=== PATIENT | female | born 1960 | race Hispanic/Latino ===

== ENCOUNTER 2016-12-03 17:59 | Observation (INO) | payer MEDICAID ==
[2016-12-03] MEDS ORDERED: Sodium Chloride 0.9% 1,000 ML IV STA ×2 (18:37→20:34)
[2016-12-03 19:02] LABS: BASO # 0.1 K/uL (0.0-0.2); BASO % 0.6 % (0.0-2.0); EOS # 0.1 K/uL (0.0-0.7); EOS % 0.6 % (0.0-4.0); HEMATOCRIT 44.6 % (34.0-47.0); LYMPH # 1.8 K/uL (1.0-4.3); LYMPH % 16.6 % (20.0-40.0); MEAN CELL VOLUME 101.7 fl (81.0-99.0); MEAN CORPUSCULAR HEMOGLOBIN 35.3 pg (27.0-31.0); MEAN CORPUSCULAR HGB CONC 34.7 g/dL (33.0-37.0); MEAN PLATELET VOLUME 8.6 fl (7.2-11.7); MONO # 1.1 K/uL (0.0-0.8); MONO % 9.9 % (0.0-10.0); NEUT # 7.8 K/uL (1.8-7.0); NEUT % 72.3 % (50.0-75.0); RED CELL DISTRIBUTION WIDTH 13.9 % (11.5-14.5); WHITE BLOOD COUNT 10.8 K/uL (4.8-10.8)
--- NOTE | 2016-12-03 19:06 | ED PDOC ---
HPI: Abdomen Time Seen by Provider: 12/03/16 18:37 Chief Complaint (Nursing): Abdominal Pain Chief Complaint (Provider): abdominal pain History Per: Patient History/Exam Limitations: no limitations Outside of [place] travel?: No Location Of Pain/Discomfort: RLQ, LLQ Associated Symptoms: Nausea, Vomiting (>10x daily), Diarrhea (with mucus), Loss Of Appetite, Other (weakness). denies: Fever, Chills, Back Pain, Chest Pain, Constipation, Urinary Symptoms Exacerbating Factors: Movement Alleviating Factors: Rest Last Bowel Movement: Today Additional Complaint(s): 56yo F in ED for eval of left lower and right lower quad area pin x 5dPT with hx IBD and is on narocitc Rx for pain relief. PT admits to nausea with vomiting >10x with diarrhea. denies CP, SOB, dysuria hematuira bloody stool. Abnormal Vaginal Bleeding: No Past Medical History Reviewed: Historical Data, Nursing Documentation, Vital Signs Vital Signs: Last Vital Signs Temp 99.2 F 12/03/16 18:01 Pulse 100 H 12/03/16 19:12 Resp 20 12/03/16 19:12 BP 128/98 H 12/03/16 18:01 Pulse Ox 99 12/03/16 19:09 - Medical History PMH: Anxiety, Asthma, COPD, HTN, Chronic Pain (back pain) Denies: Chronic Kidney Disease - Family History Family History: States: Unknown Family Hx, CAD - Immunization History Hx Tetanus Toxoid Vaccination: No Hx Influenza Vaccination: No Hx Pneumococcal Vaccination: No - Home Medications Home Medications: Ambulatory Orders Medication Instructions Recorded Alprazolam [Xanax] 1 mg PO Q12H 07/09/14 Hydrocodone/Acetaminophen [Vicodin 1 tab PO TID 07/09/14 Hp 10-300 mg Tablet] Irbesartan [Avapro] 300 mg PO HS 07/09/14 Oxycodone HCl [Oxycontin] 20 mg PO Q12H 11/29/15 Pantoprazole Sodium [Protonix] 40 mg PO DAILY 11/29/15 Theophylline [Gideon-Dur] 200 mg PO BID 11/29/15 Zolpidem [Ambien] 10 mg PO HS 11/29/15 Ondansetron ODT [Zofran ODT] 4 mg PO Q6 PRN 02/13/16 - Allergies Allergies/Adverse Reactions: Allergies Allergy/AdvReac Type Severity Reaction Status Date / Time EGG Allergy RASH Verified 12/03/16 18:00 Review of Systems ROS Statement: Except As Marked, All Systems Reviewed And Found Negative Constitutional: Positive for: Weakness. Negative for: Fever, Chills Cardiovascular: Negative for: Chest Pain, Palpitations Respiratory: Negative for: Cough, Shortness of Breath Gastrointestinal: Positive for: Nausea, Vomiting, Abdominal Pain, Diarrhea. Negative for: Constipation, Melena, Hematochezia, Hematemesis, Rectal Pain Physical Exam - Reviewed Nursing Documentation Reviewed: Yes Vital Signs Reviewed: Yes - Physical Exam Appears: Positive for: Non-toxic, No Acute Distress, Uncomfortable Head Exam: Positive for: ATRAUMATIC, NORMAL INSPECTION, NORMOCEPHALIC Skin: Positive for: Warm, Dry Eye Exam: Positive for: EOMI, Normal appearance, PERRL Cardiovascular/Chest: Positive for: Regular Rate, Rhythm Respiratory: Positive for: CNT, Normal Breath Sounds Gastrointestinal/Abdominal: Positive for: Bowel Sounds, Soft, Tenderness ( diffuse lower abd. ). Negative for: Mass, Distended, Guarding Back: Positive for: Normal Inspection. Negative for: L CVA Tenderness, R CVA Tenderness Extremity: Positive for: Normal ROM Neurologic/Psych: Positive for: Alert, Oriented - Laboratory Results Result Diagrams: 12/03/16 18:45 12/03/16 18:45 - ECG O2 Sat by Pulse Oximetry: 99 - Progress ED Course And Treament: impression: IBD-will get CT scan, fluids, zofran and Bentyl for pain Pt with abdominal labs -K+ 2.6. Pt will EKG. case transferred to NAM Moser-Pt pending CT scan and if with abnormal EKG IV K + vs PO K+. Disposition - Clinical Impression Clinical Impression: Abdominal pain - Patient ED Disposition Is Patient to be Admitted: Transfer of Care - Disposition Disposition Time: 20:10 Condition: FAIR Patient Signed Over To: Ricarda Moser Handoff Comments: CT pending
[2016-12-03 19:45] LABS: ALB/GLOB RATIO 1.3 (1.0-2.1); ALKALINE PHOSPHATASE 128 U/L (38-126); ALT/SGPT 68 U/L (9-52); AST/SGOT 99 U/L (14-36); BILIRUBIN,TOTAL 0.7 mg/dl (0.2-1.3); BLOOD UREA NITROGEN 7 mg/dl (7-17); CALCIUM 9.7 mg/dL (8.4-10.2); CARBON DIOXIDE 38 mmol/L (22-30); CHLORIDE 76 mmol/L (98-107); GFR AFRICAN-AMERICAN > 60; GLUCOSE,RANDOM 103 mg/dL (65-105); SODIUM 128 mmol/l (132-148); TOTAL PROTEIN 7.5 G/DL (6.3-8.2)
[2016-12-03 19:54] LABS: POTASSIUM 2.6 MMOL/L (3.6-5.0)
[2016-12-03] MEDS ORDERED: Potassium Chloride 20 mEq ER Tab PO STA (19:57)
[2016-12-03] MEDS ORDERED: Iohexol 300 100 ML IJ ONE (19:58)
[2016-12-03] MEDS ORDERED: Sodium Chloride 0.9% 50 ML IV ONE (19:58)
[2016-12-03 20:12] LABS: RBC URINE < 1 /hpf (0-3); URINE BILIRUBIN NEGATIVE (NEGATIVE); URINE BLOOD NEGATIVE (NEGATIVE); URINE COLOR STRAW (YELLOW); URINE GLUCOSE (UA) NEG (Normal); URINE KETONE NEGATIVE (NEGATIVE); URINE LEUKOCYTE ESTERASE NEG Leu/uL (Negative); URINE PROTEIN NEGATIVE (NEGATIVE); URINE UROBILINOGEN 0.2-1.0 mg/dL (0.2-1.0); WBC URINE < 1 /hpf (0-5)
[2016-12-03] MEDS ORDERED: Potassium Chloride 20 mEq ER Tab PO ONE ×2 (20:33→20:59)
--- NOTE | 2016-12-03 20:35 | ED PDOC ---
- Laboratory Results Result Diagrams: 12/03/16 18:45 12/03/16 23:20 - ECG O2 Sat by Pulse Oximetry: 99 - Radiology X-Ray: Viewed By Me (reviewed by ED attending) X-Ray Interpretation: No Acute Disease - Progress ED Course And Treament: Case endorsed to policy writer typist from Freda BROWNING pending CT Case discussed with ED attending Dr. Carver; will give Potassium 80mEq PO Morphine IV given for returning pain EXAM: CT Abdomen and Pelvis With Intravenous Contrast CLINICAL HISTORY: 56 years old, female; Pain; Abdominal pain TECHNIQUE: Axial computed tomography images of the abdomen and pelvis with intravenous contrast. Coronal and sagittal reformatted images were created and reviewed. CONTRAST: 90 mL of omnipaque 300 administered intravenously. EXAM DATE/TIME: 12/03/2016 7:09 PM COMPARISON: CT - CHEST,ABD,PEL W/IV PO CONTRAST 05/07/2015 12:12:45 PM FINDINGS: Lower thorax: Heart size is normal. Lung bases are hyperinflated. There is scarring in the lingula. ABDOMEN: Liver: There is fatty infiltration of the liver. Gallbladder and bile ducts: Gallbladder is partially distended. Common bile duct is dilated. Pancreas: Pancreas is mildly atrophic. There is mild prominence of the pancreatic duct. Spleen: Spleen is unremarkable. There is an accessory spleen in the left upper quadrant. Adrenals: unremarkable Kidneys and ureters: There is a small left lower pole renal cyst. There are additional low attenuation left renal lesions too small to characterize Kidneys are otherwise unremarkable. There are extrarenal pelves bilaterally. There is no ureterectasis. Stomach and bowel: Stomach is incompletely distended which accentuates the gastric wall. There is mild duodenal wall and fold prominence. Rotation is normal. Proximal small bowel is mildly dilated with air-fluid levels. There is air and fluid throughout the small bowel. Terminal ileum is unremarkable. Visualized portion the appendix is unremarkable.Colon is incompletely distended which limits evaluation. There is scattered diverticulosis Appendix: See stomach and bowel PELVIS: Bladder: Bladder is distended. Reproductive: Uterus is absent. There are no adnexal masses. ABDOMEN and PELVIS: Intraperitoneal space: There is no free air.There is no free fluid. Bones/joints: There are degenerative changes in the osseus structures. There is a spinal foreign body extending from T12-L4. Soft tissues: unremarkable Vasculature: There are vascular calcifications. Lymph nodes: There is shotty para-aortic adenopathy. IMPRESSION: IMPRESSION: Fatty liver, no acute solid visceral abnormality; mildly distended gallbladder with dilated common duct; gastric wall thickening, underdistention versus true thickening; possible enteritis, no obstruction; no CT findings of appendicitis or diverticulitis On re-eval, patient still with complaints of lower abdominal pain; patient has already been taking vicodin/oxydone at home for chronic pain without improvement of abdominal pain. Repeat potassium 3.0. Potassium IV run ordered. Case discussed with Dr. Badillo for placement in observation for hypokalemia, hyponatremia, intractable abdominal pain, dehydration Disposition - Clinical Impression Clinical Impression: Abdominal pain, Hypokalemia, Hyponatremia, Dehydration, Gastroenteritis - POA Present On Arrival: None - Disposition Disposition: Hospitalized as Observation Patient Disposition Time: 00:00 Condition: FAIR
--- NOTE | 2016-12-03 21:13 | CT ---
EXAM: CT Abdomen and Pelvis With Intravenous Contrast CLINICAL HISTORY: 56 years old, female; Pain; Abdominal pain TECHNIQUE: Axial computed tomography images of the abdomen and pelvis with intravenous contrast. Coronal and sagittal reformatted images were created and reviewed. CONTRAST: 90 mL of omnipaque 300 administered intravenously. EXAM DATE/TIME: 12/03/2016 7:09 PM COMPARISON: CT - CHEST,ABD,PEL W/IV PO CONTRAST 05/07/2015 12:12:45 PM FINDINGS: Lower thorax: Heart size is normal. Lung bases are hyperinflated. There is scarring in the lingula. ABDOMEN: Liver: There is fatty infiltration of the liver. Gallbladder and bile ducts: Gallbladder is partially distended. Common bile duct is dilated. Pancreas: Pancreas is mildly atrophic. There is mild prominence of the pancreatic duct. Spleen: Spleen is unremarkable. There is an accessory spleen in the left upper quadrant. Adrenals: unremarkable Kidneys and ureters: There is a small left lower pole renal cyst. There are additional low attenuation left renal lesions too small to characterize Kidneys are otherwise unremarkable. There are extrarenal pelves bilaterally. There is no ureterectasis. Stomach and bowel: Stomach is incompletely distended which accentuates the gastric wall. There is mild duodenal wall and fold prominence. Rotation is normal. Proximal small bowel is mildly dilated with air-fluid levels. There is air and fluid throughout the small bowel. Terminal ileum is unremarkable. Visualized portion the appendix is unremarkable.Colon is incompletely distended which limits evaluation. There is scattered diverticulosis Appendix: See stomach and bowel PELVIS: Bladder: Bladder is distended. Reproductive: Uterus is absent. There are no adnexal masses. ABDOMEN and PELVIS: Intraperitoneal space: There is no free air.There is no free fluid. Bones/joints: There are degenerative changes in the osseus structures. There is a spinal foreign body extending from T12-L4. Soft tissues: unremarkable Vasculature: There are vascular calcifications. Lymph nodes: There is shotty para-aortic adenopathy. IMPRESSION: IMPRESSION: Fatty liver, no acute solid visceral abnormality; mildly distended gallbladder with dilated common duct; gastric wall thickening, underdistention versus true thickening; possible enteritis, no obstruction; no CT findings of appendicitis or diverticulitis Additional findings as described above.
[2016-12-04] MEDS ORDERED: Potassium CL 10mEq/100ml 100 ML IVPB ONE (00:53)
[2016-12-04] MEDS ORDERED: Potassium Chloride 10 mEq 100 ML IVPB ONE (01:18)
[2016-12-04] MEDS ORDERED: Pneumococcal 23-Valent Vaccine IM ONE (06:00)
[2016-12-04] MEDS: Potassium Chl 40 mEq in D5-NS 1,000 ML IV SCH ×2 (07:30→16:30)
[2016-12-04 07:53] LABS: HEMATOCRIT 38.8 % (34.0-47.0); RED CELL DISTRIBUTION WIDTH 13.7 % (11.5-14.5); WHITE BLOOD COUNT 7.5 K/uL (4.8-10.8)
[2016-12-04 08:03] LABS: ALB/GLOB RATIO 1.2 (1.0-2.1); ALKALINE PHOSPHATASE 100 U/L (38-126); ALT/SGPT 51 U/L (9-52); AST/SGOT 69 U/L (14-36); BILIRUBIN,TOTAL 0.5 mg/dl (0.2-1.3); BLOOD UREA NITROGEN 4 mg/dl (7-17); CALCIUM 8.8 mg/dL (8.4-10.2); CARBON DIOXIDE 33 mmol/L (22-30); CHLORIDE 96 mmol/L (98-107); GFR AFRICAN-AMERICAN > 60; GLUCOSE,RANDOM 97 mg/dL (65-105); POTASSIUM 3.2 MMOL/L (3.6-5.0); SODIUM 137 mmol/l (132-148); TOTAL PROTEIN 5.7 G/DL (6.3-8.2)
[2016-12-04] MEDS: oxyCODONE 20 mg ER Tab (oxyCONTIN) PO SCH (09:58)
[2016-12-04] MEDS: Albuterol HFA 90 mcg/actuation (8 g) INH PRN (13:33)
[2016-12-04] MEDS: Oxycodone/Acetaminophen 5/325 mg Tab PO PRN ×2 (16:29→22:01)
[2016-12-04] MEDS ORDERED: THEOPHYLLINE 200 MG PO SCH (17:00)
--- NOTE | 2016-12-04 19:26 | CON ---
DATE: 12/04/2016 REFERRING PHYSICIAN: Dr. Badillo REASON FOR CONSULTATION: Diarrhea. This is a sherry 56-year-old female known to my office and service, essentially history of IBS type s ymptoms. Brought in for left and right lower quadrant pain and discomfort with 5-day history of diar hillary and vomiting, all since resolving. Diarrhea is improved, but there is persistent hypokalemia, i s tolerating liquid diet. Otherwise, no apparent distress. PAST MEDICAL HISTORY: As above. PAST SURGICAL HISTORY: As above. MEDICATIONS: Have been reviewed. All other systems have been reviewed and negative apart from the HPI. PHYSICAL EXAMINATION: VITAL SIGNS: Here in the hospital, grossly unremarkable. GENERAL: This is a pleasant, middle-aged female, lying in bed, comfortable, no apparent distress. HEAD: Normocephalic, atraumatic. EYES: Pupils equally reactive to light bilaterally. No conjunctival pallor or icterus. NECK: Supple, normal range of motion. No lymphadenopathy appreciated. LUNGS: Coarse breath sounds bilaterally. HEART: S1, S2. Regular rate and rhythm. No murmurs appreciated. ABDOMEN: Soft, nontender, bowel sounds present. No rebound, no guarding. RECTAL: Deferred. EXTREMITIES: Pulses present bilaterally. SKIN: Warm, dry and intact. NEUROLOGIC: AO x 3. LABORATORY AND RADIOLOGY DATA: Have been reviewed. CAT scan shows a proximal small bowel with dilat ed air-fluid levels, but no gross abnormalities. WBCs 7. , hemoglobin 13.2. Potassium is 3.2 an d holding. AST 69, ALT 51, alkaline phosphatase 100. ASSESSMENT AND PLAN: This is a 56-year-old female with severe diarrhea and cramping. Unclear if thi s is gastroenteritis. The patient is doing well. Would advance diet as tolerated. Danielle for the d iarrhea. Follow up with me in the office. Thank you for the consult. Glen Kathleen MD, PhD cc:Liang Badillo MD [id number] TT: 12/04/2016 19:25:14 Confirmation # [id number] Dictation # [id number]
[2016-12-05 00:01] VITALS: PULSE 71; RESP 20
[2016-12-05] MEDS: Potassium Chl 40 mEq in D5-NS 1,000 ML IV SCH ×3 (01:35→08:43)
[2016-12-05] MEDS: Albuterol HFA 90 mcg/actuation (8 g) INH PRN (01:36)
[2016-12-05] MEDS: Oxycodone/Acetaminophen 5/325 mg Tab PO PRN (04:57)
[2016-12-05 05:02] VITALS: BP 104/67; TEMP 97.4; O2SAT 95
[2016-12-05 07:07] LABS: BASO # 0.1 K/uL (0.0-0.2); BASO % 0.7 % (0.0-2.0); EOS # 0.3 K/uL (0.0-0.7); EOS % 4.1 % (0.0-4.0); HEMATOCRIT 39.7 % (34.0-47.0); LYMPH # 2.2 K/uL (1.0-4.3); LYMPH % 27.6 % (20.0-40.0); MEAN CORPUSCULAR HEMOGLOBIN 35.1 pg (27.0-31.0); MEAN CORPUSCULAR HGB CONC 33.4 g/dL (33.0-37.0); MEAN PLATELET VOLUME 8.5 fl (7.2-11.7); MONO # 0.8 K/uL (0.0-0.8); MONO % 9.6 % (0.0-10.0); NEUT # 4.7 K/uL (1.8-7.0); RED CELL DISTRIBUTION WIDTH 13.9 % (11.5-14.5); WHITE BLOOD COUNT 8.1 K/uL (4.8-10.8)
[2016-12-05 07:25] LABS: ALKALINE PHOSPHATASE 92 U/L (38-126); ALT/SGPT 48 U/L (9-52); AST/SGOT 54 U/L (14-36); BILIRUBIN,TOTAL 0.3 mg/dl (0.2-1.3); BLOOD UREA NITROGEN 3 mg/dl (7-17); CALCIUM 9.3 mg/dL (8.4-10.2); CARBON DIOXIDE 31 mmol/L (22-30); CHLORIDE 103 mmol/L (98-107); GFR AFRICAN-AMERICAN > 60; GLUCOSE,RANDOM 102 mg/dL (65-105); POTASSIUM 4.4 MMOL/L (3.6-5.0); SODIUM 140 mmol/l (132-148); TOTAL PROTEIN 5.8 G/DL (6.3-8.2)
[2016-12-05 07:30] LABS: ALB/GLOB RATIO 1.1 (1.0-2.1)
--- NOTE | 2016-12-05 08:28 | CP.PCM.DIS ---
Provider - Provider Date of Admission: 12/04/16 00:23 Attending physician: Liang Badillo MD Time Spent in preparation of Discharge (in minutes): 45 Diagnosis - Discharge Diagnosis (1) Nausea, vomiting and diarrhea Status: Acute Comment: Likely secondary to mild gastroenteritis, has resolved. Follow with PMD and GI as instructed. (2) COPD (chronic obstructive pulmonary disease) Status: Chronic Priority: Medium Comment: Controlled, f/u with primary care doctor (3) IBS (irritable bowel syndrome) Status: Chronic Hospital Course - Lab Results Lab Results: Most Recent Lab Values WBC 8.1 K/uL (4.8-10.8) 12/05/16 06:35 RBC 3.78 Mil/uL (3.80-5.20) L 12/05/16 06:35 Hgb 13.2 g/dL (12.0-16.0) 12/05/16 06:35 Hct 39.7 % (34.0-47.0) 12/05/16 06:35 MCV 105.0 fl (81.0-99.0) H D 12/05/16 06:35 MCH 35.1 pg (27.0-31.0) H 12/05/16 06:35 MCHC 33.4 g/dL (33.0-37.0) 12/05/16 06:35 RDW 13.9 % (11.5-14.5) 12/05/16 06:35 Plt Count 169 K/uL (130-400) 12/05/16 06:35 MPV 8.5 fl (7.2-11.7) 12/05/16 06:35 Neut % (Auto) 58.0 % (50.0-75.0) 12/05/16 06:35 Lymph % (Auto) 27.6 % (20.0-40.0) 12/05/16 06:35 [place] % (Auto) 9.6 % (0.0-10.0) 12/05/16 06:35 Eos % (Auto) 4.1 % (0.0-4.0) H 12/05/16 06:35 Baso % (Auto) 0.7 % (0.0-2.0) 12/05/16 06:35 Neut # 4.7 K/uL (1.8-7.0) 12/05/16 06:35 Lymph # 2.2 K/uL (1.0-4.3) 12/05/16 06:35 [place] # 0.8 K/uL (0.0-0.8) 12/05/16 06:35 Eos # 0.3 K/uL (0.0-0.7) 12/05/16 06:35 Baso # 0.1 K/uL (0.0-0.2) 12/05/16 06:35 Sodium 140 mmol/l (132-148) 12/05/16 06:35 Potassium 4.4 MMOL/L (3.6-5.0) 12/05/16 06:35 Chloride 103 mmol/L (98-107) 12/05/16 06:35 Carbon Dioxide 31 mmol/L (22-30) H 12/05/16 06:35 Anion Gap 10 (10-20) 12/05/16 06:35 BUN 3 mg/dl (7-17) L 12/05/16 06:35 Creatinine 0.5 mg/dL (0.7-1.2) L 12/05/16 06:35 Est GFR ( Amer) > 60 12/05/16 06:35 Est GFR (Non-Af Amer) > 60 12/05/16 06:35 Random Glucose 102 mg/dL (65-105) 12/05/16 06:35 Calcium 9.3 mg/dL (8.4-10.2) 12/05/16 06:35 Total Bilirubin 0.3 mg/dl (0.2-1.3) 12/05/16 06:35 AST 54 U/L (14-36) H D 12/05/16 06:35 ALT 48 U/L (9-52) 12/05/16 06:35 Alkaline Phosphatase 92 U/L (38-126) 12/05/16 06:35 Total Protein 5.8 G/DL (6.3-8.2) L 12/05/16 06:35 Albumin 3.1 g/dL (3.5-5.0) L 12/05/16 06:35 Globulin 2.7 gm/dL (2.2-3.9) 12/05/16 06:35 Albumin/Globulin Ratio 1.1 (1.0-2.1) 12/05/16 06:35 Lipase 66 U/L (23-300) 12/03/16 21:03 Urine Color Straw (YELLOW) 12/03/16 19:58 Urine Clarity Clear (Clear) 12/03/16 19:58 Urine pH 7.0 (5.0-8.0) 12/03/16 19:58 Ur Specific [place] < 1.005 (1.003-1.030) 12/03/16 19:58 Urine Protein Negative mg/dL (NEGATIVE) 12/03/16 19:58 Urine Glucose (UA) Neg mg/dL (Normal) 12/03/16 19:58 Urine Ketones Negative mg/dL (NEGATIVE) 12/03/16 19:58 Urine Blood Negative (NEGATIVE) 12/03/16 19:58 Urine Nitrate Negative (NEGATIVE) 12/03/16 19:58 Urine Bilirubin Negative (NEGATIVE) 12/03/16 19:58 Urine Urobilinogen 0.2-1.0 mg/dL (0.2-1.0) 12/03/16 19:58 Ur Leukocyte Esterase Neg Rach/uL (Negative) 12/03/16 19:58 Urine RBC (Auto) < 1 /hpf (0-3) 12/03/16 19:58 Urine Microscopic WBC < 1 /hpf (0-5) 12/03/16 19:58 Ur Squamous Epith Cells < 1 /hpf (0-5) 12/03/16 19:58 Alcohol, Quantitative < 10 mg/dl (0-10) 12/03/16 20:07 - Hospital Course Hospital Course: Patient seen and examined at bedside this morning with attending. 56F admitted for what clinically appears to be gastroenteritis with PO intolerance, volume depletion, and hypokalemia secondary to N/V/diarrhea. This has since resolved, patient's electrolytes have been repleted and she is tolerating PO. She is stable for discharge to home and instructed to follow up with her PMD, GI specialist. Consultants: Dr Kathleen (GI) assisted in co- management. Discharge Exam - Head Exam Head Exam: ATRAUMATIC, NORMAL INSPECTION, NORMOCEPHALIC - Eye Exam Eye Exam: EOMI, Normal appearance - ENT Exam ENT Exam: Mucous Membranes Moist, Normal Exam - Neck Exam Neck exam: Full Rom, Normal Inspection - Respiratory Exam Respiratory Exam: Clear to PA & Lateral, Rhonchi (scattered pattern c/w smoking history), NORMAL BREATHING PATTERN. absent: Wheezes - Cardiovascular Exam Cardiovascular Exam: REGULAR RHYTHM. absent: JVD - GI/Abdominal Exam GI & Abdominal Exam: Normal Bowel Sounds, Soft. absent: Tenderness - Extremities Exam Extremities exam: normal capillary refill, pedal pulses present - Neurological Exam Neurological exam: Alert, Oriented x3 - Psychiatric Exam Psychiatric exam: Normal Mood - Skin Skin Exam: Normal Color, Warm Discharge Plan - Follow Up Plan Condition: FAIR Disposition: HOME/ ROUTINE Referrals: John Pineda MD [Medical Doctor] - Glen Kathleen MD, PhD [Staff Provider] -
--- NOTE | 2016-12-05 08:29 | CP.PCM.HP ---
<Stella Calabrese - Last Filed: 12/05/16 16:08> History of Present Illness - History of Present Illness History of Present Illness: 56F admitted last night, but seen and examined at bedside this morning with attending. Patient reports she came in because she was "puking her guts up" with multiple episodes of nausea, vomiting, diarrhea. She denies sick contacts, fevers, chills, abdominal pain, or dysuria. GI: Dr Kathleen Pain Mgmnt: Dr Pineda PMD: Dr Huitron PMH: Asthma, HTN, IBS- D type PSH: MARTÍN, C-sxn x3, craniotomy for brain aneurysm ALL: NKDA Smoke- Yes Alcohol- 3-4 cans/week Lives with daughter Present on Admission - Present on Admission Any Indicators Present on Admission: No Review of Systems - Review of Systems Review of Systems: As per HPI Past Patient History - Past Medical History & Family History Past Medical History?: Yes - Past Social History Smoking Status: Heavy Smoker > 10 Cigarettes Daily - CARDIAC Hx Hypertension: Yes - PULMONARY Hx Asthma: Yes Hx Chronic Obstructive Pulmonary Disease (COPD): Yes - NEUROLOGICAL Hx Neurological Disorder: Yes - HEENT Hx HEENT Problems: No - RENAL Hx Chronic Kidney Disease: No - ENDOCRINE/METABOLIC Hx Endocrine Disorders: No - HEMATOLOGICAL/ONCOLOGICAL Hx Blood Disorders: No - INTEGUMENTARY Hx Dermatological Problems: No - MUSCULOSKELETAL/RHEUMATOLOGICAL Hx Musculoskeletal Disorders: Yes - GASTROINTESTINAL Hx Gastrointestinal Disorders: Yes Hx Gastroesophageal Reflux: Yes Hx Irritable Bowel: Yes (WITH DIARRHEA) - GENITOURINARY/GYNECOLOGICAL Hx Genitourinary Disorders: No - PSYCHIATRIC Hx Anxiety: Yes Hx Substance Use: No - SURGICAL HISTORY Hx Surgeries: Yes Hx Hysterectomy: Yes Other/Comment: BRAIN ANEURYSM REPAIRED, 1 OVARY RESECTION - ANESTHESIA Hx Anesthesia: Yes Hx Anesthesia Reactions: No Hx Malignant Hyperthermia: No Meds Allergies/Adverse Reactions: Allergies Allergy/AdvReac Type Severity Reaction Status Date / Time EGG Allergy RASH Verified 12/03/16 18:00 Physical Exam - Constitutional Additional comments: Physical Exam exactly as findings on Discharge Summary. Results - Vital Signs Recent Vital Signs: Last Vital Signs Temp 36.3 C L 12/05/16 05:01 Pulse 71 12/05/16 05:01 Resp 20 12/05/16 05:01 BP 104/67 12/05/16 05:01 Pulse Ox 95 12/05/16 05:01 - Labs Result Diagrams: 12/05/16 06:35 12/05/16 06:35 Labs: Laboratory Results - last 24 hr 12/05/16 06:35 WBC 8.1 RBC 3.78 L Hgb 13.2 Hct 39.7 MCV 105.0 H D MCH 35.1 H MCHC 33.4 RDW 13.9 Plt Count 169 MPV 8.5 Neut % (Auto) 58.0 Lymph % (Auto) 27.6 [place] % (Auto) 9.6 Eos % (Auto) 4.1 H Baso % (Auto) 0.7 Neut # 4.7 Lymph # 2.2 [place] # 0.8 Eos # 0.3 Baso # 0.1 Sodium 140 Potassium 4.4 Chloride 103 Carbon Dioxide 31 H Anion Gap 10 BUN 3 L Creatinine 0.5 L Est GFR ( Amer) > 60 Est GFR (Non-Af Amer) > 60 Random Glucose 102 Calcium 9.3 Total Bilirubin 0.3 AST 54 H D ALT 48 Alkaline Phosphatase 92 Total Protein 5.8 L Albumin 3.1 L Globulin 2.7 Albumin/Globulin Ratio 1.1 Assessment & Plan (1) COPD (chronic obstructive pulmonary disease) Assessment and Plan: Chronic, stable Status: h Priority: Medium (2) Nausea, vomiting and diarrhea Assessment and Plan: Patient volume resuscitated overnight and electrolytes repleted. CT scan in ED read as ?enteritis which is consistent with N/V accompanying and more prominent than diarrhea. She is afebrile, without leukocytosis, and now tolerating PO, and electrolytes wnl. Dr Kathleen has seen patient as well. - GI Consult (Dr Kathleen) appreciated - Advance Diet - Likely discharge to home Status: c (3) IBS (irritable bowel syndrome) Assessment and Plan: Possibly contributing to her symptoms, however history more prominent for the nausea/vomiting. Status: h (4) DVT prophylaxis Assessment and Plan: SCDs, b/l, continuous Status: c <Deny Patterson - Last Filed: 12/18/16 16:45> Results - Vital Signs Recent Vital Signs: Last Vital Signs Temp 97.4 F L 12/05/16 05:01 Pulse 71 12/05/16 09:00 Resp 20 12/05/16 05:01 BP 104/67 12/05/16 05:01 Pulse Ox 95 12/05/16 05:01 - Labs Result Diagrams: 12/05/16 06:35 12/05/16 06:35 Assessment & Plan - Assessment and Plan (Free Text) Assessment: Patient was personally seen and examined by me in rounds with residents. Available labs and diagnostic data reviewed. Case, Patient's condition and management plan discussed with residents in rounds. Agree with resident's documentation. Plan: As ordered. Deny Patterson MD
[2016-12-05] MEDS: oxyCODONE 20 mg ER Tab (oxyCONTIN) PO SCH (08:41)
[2016-12-05] MEDS ORDERED: Pantoprazole 40 mg EC Tab PO SCH (09:00)
--- NOTE | 2016-12-05 18:17 | CARD ---
APPROVED REPORT EKG Measurement Heart [id number] <Conclusion> Normal sinus rhythm Prolonged QT Abnormal ECG
== END 2016-12-05 11:13 | disposition home or self-care (01) ==
LOC: H.ER 17:59 → INTOOBSV 12-04 00:23 → H.ERHOLD 12-04 00:23 → H.TEL 12-04 02:38
PROVIDERS: ADMIT Family Medicine; ATTEND Family Medicine
DX: A04.7 Enterocolitis due to Clostridium difficile (principal); K58.9 Irritable bowel syndrome, unspecified; E87.6 Hypokalemia; E87.1 Hypo-osmolality and hyponatremia; E86.0 Dehydration; G89.29 Other chronic pain; I10 Essential (primary) hypertension; J44.9 Chronic obstructive pulmonary disease, unspecified; J45.909 Unspecified asthma, uncomplicated; F41.9 Anxiety disorder, unspecified; Z91.012 Allergy to eggs

== ENCOUNTER 2017-03-15 22:18 | Emergency (ER) | payer MEDICAID ==
[2017-03-15 22:23] VITALS: TEMP 98
[2017-03-15] MEDS ORDERED: Morphine 4 MG/ML VIAL IVP STA (22:33)
[2017-03-15 22:56] LABS: BASO # 0.1 K/uL (0.0-0.2); BASO % 0.5 % (0.0-2.0); EOS % 0.1 % (0.0-4.0); LYMPH # 2.5 K/uL (1.0-4.3); LYMPH % 20.9 % (20.0-40.0); MEAN CELL VOLUME 102.8 fl (81.0-99.0); MEAN CORPUSCULAR HEMOGLOBIN 34.8 pg (27.0-31.0); MEAN CORPUSCULAR HGB CONC 33.9 g/dL (33.0-37.0); MEAN PLATELET VOLUME 7.6 fl (7.2-11.7); MONO # 0.7 K/uL (0.0-0.8); MONO % 5.8 % (0.0-10.0); NEUT # 8.6 K/uL (1.8-7.0); NEUT % 72.7 % (50.0-75.0); RED CELL DISTRIBUTION WIDTH 14.1 % (11.5-14.5); WHITE BLOOD COUNT 11.8 K/uL (4.8-10.8)
--- NOTE | 2017-03-15 22:58 | ED PDOC ---
HPI: SOB/CHF/COPD Time Seen by Provider: 03/15/17 22:24 Chief Complaint (Nursing): Shortness Of Breath History Per: Patient History/Exam Limitations: no limitations Onset/Duration Of Symptoms: Days Associated Symptoms: denies: Fever, Chills, Sweating, Chest Pain Additional Complaint(s): Hx of COPD/asthma, active smoking, heart disease? p/w bilateral lower exremeity edema x 4 days. States its been getting more swollen and painful, admits to taking narcotic medications at home for it. States that she is constantly SOB and today is no different from her usual breathing. Denies CP. Pt. perseverates over pain medication and narcotics, exhibits behaviors of narctoic seeking behavior. Past Medical History Reviewed: Historical Data, Nursing Documentation, Vital Signs Vital Signs: Last Vital Signs Temp 98.0 F 03/15/17 22:19 Pulse 99 H 03/16/17 00:29 Resp 18 03/16/17 00:29 BP 120/73 03/16/17 00:29 Pulse Ox 98 03/16/17 00:29 - Medical History PMH: Anxiety, Asthma, COPD, HTN, Chronic Pain (back pain) Denies: HIV, Chronic Kidney Disease - Family History Family History: States: Unknown Family Hx, CAD - Immunization History Hx Tetanus Toxoid Vaccination: No Hx Influenza Vaccination: No Hx Pneumococcal Vaccination: No - Home Medications Home Medications: Ambulatory Orders Medication Instructions Recorded Alprazolam [Xanax] 1 mg PO Q12H 07/09/14 Hydrocodone/Acetaminophen [Vicodin 1 tab PO QID 07/09/14 Hp 10-300 mg Tablet] Irbesartan [Avapro] 150 mg PO HS 07/09/14 Oxycodone HCl [Oxycontin] 20 mg PO Q12H 11/29/15 Pantoprazole Sodium [Protonix] 40 mg PO DAILY 11/29/15 Theophylline [Gideon-Dur] 200 mg PO BID 11/29/15 Zolpidem [Ambien] 10 mg PO HS 11/29/15 Ondansetron ODT [Zofran ODT] 4 mg PO Q6 PRN 02/13/16 Albuterol HFA [Ventolin HFA 90 2 puff INH QID PRN 12/04/16 mcg/actuation (8 g)] Furosemide [Lasix] 20 mg PO DAILY #20 tab 03/16/17 - Allergies Allergies/Adverse Reactions: Allergies Allergy/AdvReac Type Severity Reaction Status Date / Time EGG Allergy RASH Verified 12/03/16 18:00 Curb-65 Severity Score - CURB-65 Severity Score Confusion: No Bun >19mg/dl (>7mmol/L): No Respiratory Rate greater than/equal to 30: No Systolic BP <90 or Diastolic BP less than/equal 60mmHg: No Age >64: No Curb-65 Score: 0 Percentage 30-day mortality: 0.6% Wells Criteria for PE - Wells Criteria for Pulmonary Embolism Clinical Signs and Symptoms of DVT: No P.E is #1 Diagnosis, or Equally Likely: No Heart Rate >100: No Immobilization at least 3 days;Surgery previous 4 weeks: No Previous, objectively diagnosed PE or DVT: No Hemoptysis: No Malignancy w/treatment within 6 months, or palliative: No Total Score: 0 Review of Systems ROS Statement: Except As Marked, All Systems Reviewed And Found Negative Respiratory: Positive for: Shortness of Breath Physical Exam - Reviewed Nursing Documentation Reviewed: Yes Vital Signs Reviewed: Yes - Physical Exam Appears: Positive for: Well, Non-toxic, No Acute Distress Head Exam: Positive for: ATRAUMATIC, NORMAL INSPECTION, NORMOCEPHALIC Skin: Positive for: Normal Color, Warm, DRY Eye Exam: Positive for: EOMI, Normal appearance, PERRL ENT: Positive for: Normal ENT Inspection Neck: Positive for: Normal, Painless ROM Cardiovascular/Chest: Positive for: Regular Rate, Rhythm Respiratory: Positive for: CNT, Normal Breath Sounds Gastrointestinal/Abdominal: Positive for: Normal Exam, Bowel Sounds, Soft Back: Positive for: Normal Inspection Extremity: Positive for: Pedal Edema (1+ to knees). Negative for: Calf Tenderness Neurologic/Psych: Positive for: Alert, Oriented - Laboratory Results Result Diagrams: 03/15/17 22:39 03/15/17 22:39 - ECG O2 Sat by Pulse Oximetry: 92 Medical Decision Making Medical Decision Making: Leg swelling: r/o DVT, ARF, CHF Patient understands she will not receive any prescriptions for narcotics 6241 US Duplex Bilateral Lower Extremity Veins TECHNIQUE: Real-time ultrasound scan of the veins of the bilateral lower extremities with color Doppler flow, spectral waveform analysis and compression. EXAM DATE/TIME: 03/15/2017 10:34 PM COMPARISON: US - DUPLEX LOWER EXTRM VEIN LEFT 11/29/2015 5:05:56 PM FINDINGS: No evidence of DVT in the common femoral, superficial femoral, popliteal, or posterior tibial veins bilaterally based on compressibility and flow images. IMPRESSION: No acute findings. 2347: Pt. has ETOH level of >200, asking for more narcotics. No acute medical emergency, will discharge. Told patient to f/u w/ Dr. Nava. Scribe Attestation Documented by Vandana Angela acting as a scribe for Santiago Carver MD. Provider Attestation All medical record entries made by the Scribe were at my direction and personally dictated by me. I have reviewed the chart and agree that the record accurately reflects my personal performance of the history, physical exam, medical decision making, and the department course for this patient. I have also personally directed, reviewed, and agree with the discharge instructions and disposition. Disposition - Clinical Impression Clinical Impression: Lower extremity edema, Alcohol abuse - Disposition Referrals: Alcoholics Anonymous [Outside] Kiran Krishnan MD [Family Provider] - Disposition: Routine/Home Disposition Time: 23:47 Condition: STABLE Prescriptions: Furosemide [Lasix] 20 mg PO DAILY #20 tab Instructions: Leg Edema (ED) Forms: [employer] ([place]ian)
[2017-03-15 23:05] LABS: ALCOHOL SERUM 227 mg/dl (0-10); BLOOD UREA NITROGEN 32 mg/dl (7-17); CALCIUM 8.9 mg/dL (8.4-10.2); CARBON DIOXIDE 24 mmol/L (22-30); CHLORIDE 104 mmol/L (98-107); GFR AFRICAN-AMERICAN 56; GLUCOSE,RANDOM 85 mg/dL (65-105); POTASSIUM 4.6 MMOL/L (3.6-5.0); SODIUM 138 mmol/l (132-148)
--- NOTE | 2017-03-15 23:48 | US ---
EXAM: US Duplex Bilateral Lower Extremity Veins CLINICAL HISTORY: 56 years old, female; Signs and symptoms; Edema, localized; Lower extremity, bilateral; Additional info: R/O dvt TECHNIQUE: Real-time ultrasound scan of the veins of the bilateral lower extremities with color Doppler flow, spectral waveform analysis and compression. EXAM DATE/TIME: 03/15/2017 10:34 PM COMPARISON: US - DUPLEX LOWER EXTRM VEIN LEFT 11/29/2015 5:05:56 PM FINDINGS: No evidence of DVT in the common femoral, superficial femoral, popliteal, or posterior tibial veins bilaterally based on compressibility and flow images. IMPRESSION: No acute findings.
[2017-03-16 00:30] VITALS: BP 120/73; PULSE 99; RESP 18
[2017-03-16 03:34] VITALS: O2SAT 92
--- NOTE | 2017-03-16 14:25 | RAD ---
PROCEDURE: CHEST RADIOGRAPH, 1 VIEW HISTORY: leg swelling COMPARISON: 01/30/2016. FINDINGS: LUNGS: Clear. PLEURA: No pneumothorax or pleural fluid seen. CARDIOVASCULAR: No radiographic findings to suggest acute or significant cardiovascular disease. OSSEOUS STRUCTURES: No significant abnormalities. VISUALIZED UPPER ABDOMEN: Normal. OTHER FINDINGS: None. IMPRESSION: No active disease. No acute/significant interval changes.
--- NOTE | 2017-03-18 18:33 | CARD ---
APPROVED REPORT EKG Measurement Heart [id number] MI [id number] <Conclusion> Sinus rhythm with occasional premature ventricular complexes Otherwise normal ECG
== END 2017-03-16 00:47 | disposition home or self-care (01) ==
LOC: H.ER 22:18
DX: F10.10 Alcohol abuse, uncomplicated (principal); Y90.7 Blood alcohol level of 200-239 mg/100 ml; R60.0 Localized edema; F17.200 Nicotine dependence, unspecified, uncomplicated; I10 Essential (primary) hypertension; J44.9 Chronic obstructive pulmonary disease, unspecified

== ENCOUNTER 2017-05-18 18:46 | Observation (INO) | payer MEDICAID ==
[2017-05-18 19:45] LABS: BASO % 0.2 % (0.0-2.0); EOS # 0.1 K/uL (0.0-0.7); EOS % 0.5 % (0.0-4.0); HEMATOCRIT 35.6 % (34.0-47.0); LYMPH # 2.9 K/uL (1.0-4.3); LYMPH % 22.7 % (20.0-40.0); MEAN CELL VOLUME 106.2 fl (81.0-99.0); MEAN CORPUSCULAR HEMOGLOBIN 35.4 pg (27.0-31.0); MEAN CORPUSCULAR HGB CONC 33.3 g/dL (33.0-37.0); MEAN PLATELET VOLUME 8.6 fl (7.2-11.7); MONO # 1.3 K/uL (0.0-0.8); NEUT # 8.5 K/uL (1.8-7.0); NEUT % 66.6 % (50.0-75.0); NRBC % 0.1 % (0.0-0.0); WHITE BLOOD COUNT 12.8 K/uL (4.8-10.8)
[2017-05-18 19:52] LABS: ALB/GLOB RATIO 1.1 (1.0-2.1); ALCOHOL SERUM < 10 mg/dl (0-10); ALKALINE PHOSPHATASE 251 U/L (38-126); ALT/SGPT 87 U/L (9-52); AST/SGOT 164 U/L (14-36); BILIRUBIN,TOTAL 1.1 mg/dl (0.2-1.3); BLOOD UREA NITROGEN 6 mg/dl (7-17); CALCIUM 8.9 mg/dL (8.4-10.2); CARBON DIOXIDE 29 mmol/L (22-30); CHLORIDE 91 mmol/L (98-107); GFR AFRICAN-AMERICAN > 60; GLUCOSE,RANDOM 79 mg/dL (65-105); MAGNESIUM 1.3 MG/DL (1.6-2.3); PHOSPHOROUS 3.4 mg/dl (2.5-4.5); SODIUM 131 mmol/l (132-148); TOTAL PROTEIN 6.1 G/DL (6.3-8.2)
[2017-05-18] MEDS ORDERED: Potassium Chloride 20 mEq ER Tab PO STA (20:19)
[2017-05-18] MEDS ORDERED: Potassium CL 10mEq/100ml 100 ML IVPB ONE (20:20)
[2017-05-18 20:28] LABS: PARTIAL THROMBOPLASTIN TIME 24.9 Seconds (25.6-37.1)
[2017-05-18 20:29] LABS: THYROID STIMULATING HORMONE 3.22 mIU/ML (0.46-4.68)
[2017-05-18] MEDS ORDERED: Potassium Chloride 20 mEq ER Tab PO ONE (21:04)
--- NOTE | 2017-05-18 21:20 | ED PDOC ---
HPI: Chest Pain Time Seen by Provider: 05/18/17 19:01 Chief Complaint (Nursing): Dizziness/Lightheaded Chief Complaint (Provider): dizziness History Per: Patient History/Exam Limitations: no limitations Onset/Duration Of Symptoms: Days (1) Additional Complaint(s): Pt reports severe dizziness for 2 months, presented to [facility] 3 weeks ago for this and underwent CT scan and labs and discharged. She has been unable to walk around her home since then because she can't keep her balance. Today she developed chest pain which is why she came in again. PMD Dr Nava Past Medical History Reviewed: Historical Data, Nursing Documentation, Vital Signs Vital Signs: Last Vital Signs Temp 98 F 05/18/17 23:40 Pulse 84 05/18/17 23:40 Resp 20 05/18/17 23:40 BP 111/78 05/18/17 23:40 Pulse Ox 96 05/18/17 23:40 - Medical History PMH: Anxiety, Asthma, COPD, HTN, Chronic Pain (back pain) Denies: HIV, Chronic Kidney Disease - Family History Family History: States: Unknown Family Hx, CAD - Immunization History Hx Tetanus Toxoid Vaccination: No Hx Influenza Vaccination: No Hx Pneumococcal Vaccination: No - Home Medications Home Medications: Ambulatory Orders Medication Instructions Recorded Alprazolam [Xanax] 1 mg PO TID PRN 07/09/14 Hydrocodone/Acetaminophen [Vicodin 1 tab PO QID PRN 07/09/14 Hp 10-300 mg Tablet] Irbesartan [Avapro] 150 mg PO DAILY 07/09/14 Oxycodone HCl [Oxycontin] 20 mg PO Q12H PRN 11/29/15 Pantoprazole Sodium [Protonix] 40 mg PO DAILY 11/29/15 Theophylline [Gideon-Dur] 200 mg PO BID 11/29/15 Zolpidem [Ambien] 10 mg PO HS 11/29/15 Albuterol HFA [Ventolin HFA 90 2 puff INH QID PRN 12/04/16 mcg/actuation (8 g)] Uexvq-3-Dpid Ethyl Esters 1 GM 1 gm PO DAILY 05/18/17 [Lovaza] - Allergies Allergies/Adverse Reactions: Allergies Allergy/AdvReac Type Severity Reaction Status Date / Time EGG Allergy RASH Verified 12/03/16 18:00 Review of Systems ROS Statement: Except As Marked, All Systems Reviewed And Found Negative (and as per HPI) Constitutional: Positive for: Weakness, Malaise Cardiovascular: Positive for: Chest Pain Respiratory: Positive for: Shortness of Breath, SOB with Exertion Gastrointestinal: Positive for: Nausea, Vomiting, Abdominal Pain Physical Exam - Reviewed Nursing Documentation Reviewed: Yes Vital Signs Reviewed: Yes - Physical Exam Appears: Positive for: Non-toxic, In Acute Distress Head Exam: Positive for: NORMOCEPHALIC (with post surgical scar LEFT scalp/ forehead) Skin: Positive for: Warm, Dry Eye Exam: Positive for: EOMI, PERRL ENT: Negative for: Pharyngeal Erythema, Tonsillar Exudate Neck: Positive for: Painless ROM, Supple Cardiovascular/Chest: Positive for: Regular Rate, Rhythm. Negative for: Murmur Respiratory: Positive for: Normal Breath Sounds. Negative for: Wheezing Gastrointestinal/Abdominal: Positive for: Soft. Negative for: Tenderness Back: Positive for: Vertebral Tenderness, Muscle Spasm Extremity: Negative for: Deformity Lymphatic: Negative for: Adenopathy Neurologic/Psych: Positive for: Alert. Negative for: Motor/Sensory Deficits - Laboratory Results Result Diagrams: 05/18/17 19:30 05/18/17 19:30 Interpretation Of Abn Labs: Hyponatremia, hypokalemia - ECG O2 Sat by Pulse Oximetry: 100 Pulse Ox Interpretation: Normal - Radiology X-Ray: Interpreted by Nd X-Ray Interpretation: No Acute Disease Disposition - Clinical Impression Clinical Impression: Dizziness, Hyponatremia, Hypokalemia Discussed With : Eros Connolly Doctor Will See Patient In The: ED Counseled Patient/Family Regarding: Studies Performed, Diagnosis - Disposition Disposition Time: 20:30 Condition: GUARDED
[2017-05-18] MEDS ORDERED: ACETAMINOPHEN PO PRN (22:00)
[2017-05-18] MEDS ORDERED: Albuterol HFA 90 mcg/actuation (8 g) INH PRN (22:00)
[2017-05-18] MEDS ORDERED: oxyCODONE 20 mg ER Tab (oxyCONTIN) PO PRN (22:00)
[2017-05-18] MEDS ORDERED: HYDROCODONE PO PRN (22:00)
[2017-05-18] MEDS ORDERED: Magnesium Sulfate 2 gm/50 ml 2 GM/50 ML BAG IV ONE (22:15)
[2017-05-18] MEDS ORDERED: Albuterol-Ipratrop 3 mg / 0.5 (3 ml) UD INH PRN (23:10)
--- NOTE | 2017-05-18 23:59 | CP.PCM.HP ---
History of Present Illness - History of Present Illness History of Present Illness: CC: Vertigo, nausea/vomiting This is a 56-year-old female with a past medical history significant for asthma , COPD, long-standing tobacco abuse and current smoker, hypertension, craniotomy for brain aneurysm, anxiety, who presents to the emergency department complaining of 2 months of positional vertigo and occasional nausea and nonbloody nonbilious emesis. She states that she went to [facility] 3 weeks ago for this and underwent a CT scan was then discharged. However she denied improving afterwards. Today, she experienced chest pain radiating from her back worse on palpation, and worse with movement, mild to moderate in severity, not related to taking a deep breath. In the emergency department, vital signs were unremarkable other than initial tachycardia which resolved spontaneously. The patient was noted to be wheezing on exam although not in respiratory distress. Laboratory results are significant for white count of 12.8, hemoglobin of 11.8, normal coags, sodium 131, potassium 3.0, chloride of 91, magnesium of 1.3, alkaline phosphatase of 251, undetectable troponin level, and urine toxicology positive for opiates and benzodiazepines. CXR shows no acute cardiopulmonary problems. The patient is to be admitted for correction of her electrolytes, likely secondary to nausea and vomiting, as well as for neurology consultation in the morning.Patient denies shortness of breath, fevers, chills, diarrhea, headache. Rest of ROS as below. All of the patient's and/or family's questions were answered at the bedside. Present on Admission - Present on Admission Any Indicators Present on Admission: No Review of Systems - Hematologic/Lymphatic Additional comments: GENERAL/CONSTITUTIONAL: The patient denies fever, fatigue, weakness, weight gain or weight loss. HEAD, EYES, EARS, NOSE AND THROAT: Eyes - The patient denies pain, redness, loss of vision, double or blurred vision, flashing lights or spots, dryness, Ears, nose, mouth and throat. The patient denies ringing in the ears, loss of hearing, nosebleeds, loss of sense of smell, dry sinuses, sinusitis, post nasal drip, CARDIOVASCULAR: The patient admits to chest pain as history of present illness, denies palpitations. RESPIRATORY: The patient admits to chronic dry cough, denies coughing up blood, coughing up mucus, wheezing, or shortness of breath. GASTROINTESTINAL: The patient denies decreased appetite, nausea, vomiting, vomiting blood or coffee ground material, heartburn, regurgitation, diarrhea, constipation, gas, blood in the stools, black tarry stools. GENITOURINARY: The patient denies difficult urination, pain or burning with urination, blood in the urine, frequency, or urgency MUSCULOSKELETAL: The patient denies arm, buttock, thigh or calf cramps. No joint or muscle pain. No muscle weakness or tenderness. No joint swelling, neck pain, back pain. SKIN: The patient denies easy bruising, skin redness, skin rash, hives, sensitivity to sun exposure, tightness, nodules or bumps, hair loss, color changes in the hands or feet with cold. NEUROLOGIC: The patient denies headache, dizziness, fainting, muscle spasm, loss of consciousness, sensitivity or pain in the hands and feet or memory loss. PSYCHIATRIC: The patient denies anxiety, depression, or thoughts of suicide. ENDOCRINE: The patient denies intolerance to hot or cold temperature, flushing, fingernail changes, increased thirst, increased salt intake or decreased sexual desire. HEMATOLOGIC/LYMPHATIC: The patient denies anemia, bleeding tendency or clotting tendency. ALLERGIC/IMMUNOLOGIC: The patient denies rhinitis, asthma, skin sensitivity, latex allergies or sensitivity. Past Patient History - Infectious Disease Hx of Infectious Diseases: None - Past Medical History & Family History Past Medical History?: Yes - Past Social History Smoking Status: Heavy Smoker > 10 Cigarettes Daily - CARDIAC Hx Cardiac Disorders: Yes - PULMONARY Hx Respiratory Disorders: Yes - NEUROLOGICAL Hx Neurological Disorder: Yes - HEENT Hx HEENT Problems: No - RENAL Hx Chronic Kidney Disease: No - ENDOCRINE/METABOLIC Hx Endocrine Disorders: No - HEMATOLOGICAL/ONCOLOGICAL Hx Human Immunodeficiency Virus (HIV): No - INTEGUMENTARY Hx Dermatological Problems: No - MUSCULOSKELETAL/RHEUMATOLOGICAL Hx Musculoskeletal Disorders: Yes - GASTROINTESTINAL Hx Gastrointestinal Disorders: Yes Hx Gastroesophageal Reflux: Yes Hx Irritable Bowel: Yes (WITH DIARRHEA) - GENITOURINARY/GYNECOLOGICAL Hx Genitourinary Disorders: No - PSYCHIATRIC Hx Anxiety: Yes - SURGICAL HISTORY Hx Surgeries: Yes Hx Hysterectomy: Yes Other/Comment: BRAIN ANEURYSM REPAIRED, 1 OVARY RESECTION - ANESTHESIA Hx Anesthesia: Yes Hx Anesthesia Reactions: No Hx Malignant Hyperthermia: No Meds Allergies/Adverse Reactions: Allergies Allergy/AdvReac Type Severity Reaction Status Date / Time EGG Allergy RASH Verified 04/19/17 18:00 Physical Exam - Additional Findings Additional findings: EXAM: Vitals stable and reviewed GEN: WDWN, alert, cooperative HEENT: NCAT, surgical scar from craniotomy, PERRL, EOMI Neck: supple, no lymphadenopathy CARDIO: +S1S2, RRR, NO M/R/G LUNG: CTAB, wheezes bilaterally, no rhonchi or rales ABD: soft, NT, ND, no masses, no HSM EXT: no edema, pedal pulses Neuro: AAOx3, Strength equal, bilateral UE/LE Psych: normal mood, normal affect Results - Vital Signs Recent Vital Signs: Last Vital Signs Temp 98 F 05/18/17 23:40 Pulse 84 05/18/17 23:40 Resp 20 05/18/17 23:40 BP 111/78 05/18/17 23:40 Pulse Ox 96 05/18/17 23:40 - Labs Result Diagrams: 05/18/17 19:30 05/18/17 19:30 Labs: Laboratory Results - last 24 hr 05/18/17 05/18/17 05/18/17 19:30 19:30 19:30 WBC 12.8 H RBC 3.35 L Hgb 11.8 L Hct 35.6 MCV 106.2 H D MCH 35.4 H MCHC 33.3 RDW 13.0 Plt Count 119 L D MPV 8.6 Neut % (Auto) 66.6 Lymph % (Auto) 22.7 [place] % (Auto) 10.0 Eos % (Auto) 0.5 Baso % (Auto) 0.2 Neut # 8.5 H Lymph # 2.9 [place] # 1.3 H Eos # 0.1 Baso # 0.0 PT INR APTT D-Dimer, Quantitative Sodium 131 L Potassium 3.0 L Chloride 91 L Carbon Dioxide 29 Anion Gap 14 BUN 6 L Creatinine 0.6 L Est GFR ( Amer) > 60 Est GFR (Non-Af Amer) > 60 Random Glucose 79 Calcium 8.9 Phosphorus 3.4 Magnesium 1.3 L Total Bilirubin 1.1 AST 164 H ALT 87 H D Alkaline Phosphatase 251 H Troponin I < 0.0120 Total Protein 6.1 L Albumin 3.2 L Globulin 2.9 Albumin/Globulin Ratio 1.1 TSH 3rd Generation 3.22 Urine Opiates Screen Positive H Urine Methadone Screen Negative Ur Barbiturates Screen Negative Ur Phencyclidine Scrn Negative Ur Amphetamines Screen Negative U Benzodiazepines Scrn Positive H U Oth Cocaine Metabols Negative U Cannabinoids Screen Negative Alcohol, Quantitative < 10 05/18/17 21:00 WBC RBC Hgb Hct MCV MCH MCHC RDW Plt Count MPV Neut % (Auto) Lymph % (Auto) [place] % (Auto) Eos % (Auto) Baso % (Auto) Neut # Lymph # [place] # Eos # Baso # PT 11.2 INR 1.1 APTT 24.9 L D-Dimer, Quantitative 228 Sodium Potassium Chloride Carbon Dioxide Anion Gap BUN Creatinine Est GFR ( Amer) Est GFR (Non-Af Amer) Random Glucose Calcium Phosphorus Magnesium Total Bilirubin AST ALT Alkaline Phosphatase Troponin I Total Protein Albumin Globulin Albumin/Globulin Ratio TSH 3rd Generation Urine Opiates Screen Urine Methadone Screen Ur Barbiturates Screen Ur Phencyclidine Scrn Ur Amphetamines Screen U Benzodiazepines Scrn U Oth Cocaine Metabols U Cannabinoids Screen Alcohol, Quantitative Assessment & Plan - Assessment and Plan (Free Text) Plan: ASSESSMENT - Hyponatremia - Hypokalemia with hypochloremia, likely secondary to nausea/vomiting - Benign positional vertigo, chronic - Chest pain, likely musculoskeletal in nature. - Chronic pain syndrome - COPD with wheezing - Tobacco abuse - Hypertension PLAN - Admit to med/surg - Neurology consultation in AM - Zofran and Meclizine for symptomatic treatment - Duonebs, albuterol for COPD - IV and po potassium supplementation given - Continue Cozaar - Continue home pain medications - Repeat troponins, however doubt this is cardiac in nature given the reproducibility of her pain.
[2017-05-19 05:43] LABS: BLOOD UREA NITROGEN 4 mg/dl (7-17); CARBON DIOXIDE 33 mmol/L (22-30); CHLORIDE 101 mmol/L (98-107); GFR AFRICAN-AMERICAN > 60; GLUCOSE,RANDOM 84 mg/dL (65-105); MAGNESIUM 2.4 MG/DL (1.6-2.3); POTASSIUM 3.7 MMOL/L (3.6-5.0); SODIUM 141 mmol/l (132-148)
[2017-05-19 08:01] VITALS: RESP 18
[2017-05-19 08:01] LABS: HEMATOCRIT 34.8 % (34.0-47.0); MEAN CELL VOLUME 107.2 fl (81.0-99.0); MEAN CORPUSCULAR HEMOGLOBIN 35.6 pg (27.0-31.0); MEAN CORPUSCULAR HGB CONC 33.2 g/dL (33.0-37.0); RED CELL DISTRIBUTION WIDTH 12.9 % (11.5-14.5); WHITE BLOOD COUNT 7.6 K/uL (4.8-10.8)
[2017-05-19 08:14] LABS: ALB/GLOB RATIO 1.1 (1.0-2.1); TOTAL PROTEIN 5.5 G/DL (6.3-8.2)
--- NOTE | 2017-05-19 08:38 | RAD ---
HISTORY: Chest pain COMPARISON: 03/15/2017 FINDINGS: LUNGS: No active pulmonary disease. PLEURA: No significant pleural effusion identified, no pneumothorax apparent. CARDIOVASCULAR: No radiographic findings to suggest acute or significant cardiovascular disease. OSSEOUS STRUCTURES: No significant abnormalities. VISUALIZED UPPER ABDOMEN: Normal. OTHER FINDINGS: None. IMPRESSION: No active disease. No significant interval change compared to the prior examination(s). Please note: No preliminary report/ innterpretation of this examination provided by emergency department personnel.
[2017-05-19] MEDS ORDERED: Omega-3-Acid Ethyl Esters 1 GM Cap PO SCH (09:00)
[2017-05-19] MEDS ORDERED: Enoxaparin 40 mg Syringe SC SCH (09:00)
[2017-05-19] MEDS ORDERED: THEOPHYLLINE 200 MG PO SCH (09:00)
[2017-05-19] MEDS ORDERED: Pantoprazole 40 mg EC Tab PO SCH (09:00)
--- NOTE | 2017-05-19 10:39 | CP.PCM.DIS ---
Provider - Provider Date of Admission: 05/18/17 20:25 Attending physician: Tom Connolly DO Primary care physician: DR. Nava Time Spent in preparation of Discharge (in minutes): 20 Hospital Course - Lab Results Lab Results: Most Recent Lab Values WBC 7.6 K/uL (4.8-10.8) 05/19/17 07:40 RBC 3.25 Mil/uL (3.80-5.20) L 05/19/17 07:40 Hgb 11.6 g/dL (12.0-16.0) L 05/19/17 07:40 Hct 34.8 % (34.0-47.0) 05/19/17 07:40 MCV 107.2 fl (81.0-99.0) H 05/19/17 07:40 MCH 35.6 pg (27.0-31.0) H 05/19/17 07:40 MCHC 33.2 g/dL (33.0-37.0) 05/19/17 07:40 RDW 12.9 % (11.5-14.5) 05/19/17 07:40 Plt Count 126 K/uL (130-400) L 05/19/17 07:40 MPV 8.6 fl (7.2-11.7) 05/18/17 19:30 Neut % (Auto) 66.6 % (50.0-75.0) 05/18/17 19:30 Lymph % (Auto) 22.7 % (20.0-40.0) 05/18/17 19:30 Kern % (Auto) 10.0 % (0.0-10.0) 05/18/17 19:30 Eos % (Auto) 0.5 % (0.0-4.0) 05/18/17 19:30 Baso % (Auto) 0.2 % (0.0-2.0) 05/18/17 19:30 Neut # 8.5 K/uL (1.8-7.0) H 05/18/17 19:30 Lymph # 2.9 K/uL (1.0-4.3) 05/18/17 19:30 Kern # 1.3 K/uL (0.0-0.8) H 05/18/17 19:30 Eos # 0.1 K/uL (0.0-0.7) 05/18/17 19:30 Baso # 0.0 K/uL (0.0-0.2) 05/18/17 19:30 ESR 17 mm/hr (0-30) 05/19/17 07:40 PT 11.2 Seconds (9.8-13.1) 05/18/17 21:00 INR 1.1 (0.9-1.2) 05/18/17 21:00 APTT 24.9 Seconds (25.6-37.1) L 05/18/17 21:00 D-Dimer, Quantitative 228 ng/mlDDU (0-230) 05/18/17 21:00 Sodium 141 mmol/l (132-148) 05/19/17 04:30 Potassium 3.7 MMOL/L (3.6-5.0) 05/19/17 04:30 Chloride 101 mmol/L (98-107) 05/19/17 04:30 Carbon Dioxide 33 mmol/L (22-30) H 05/19/17 04:30 Anion Gap 11 (10-20) 05/19/17 04:30 BUN 4 mg/dl (7-17) L 05/19/17 04:30 Creatinine 0.6 mg/dL (0.7-1.2) L 05/19/17 04:30 Est GFR ( Amer) > 60 05/19/17 04:30 Est GFR (Non-Af Amer) > 60 05/19/17 04:30 Random Glucose 84 mg/dL (65-105) 05/19/17 04:30 Calcium 9.0 mg/dL (8.4-10.2) 05/19/17 04:30 Phosphorus 3.4 mg/dl (2.5-4.5) 05/18/17 19:30 Magnesium 2.4 MG/DL (1.6-2.3) H 05/19/17 04:30 Total Bilirubin 1.0 mg/dl (0.2-1.3) 05/19/17 07:40 Direct Bilirubin 0.6 mg/ml (0.0-0.4) H 05/19/17 07:40 AST 109 U/L (14-36) H D 05/19/17 07:40 ALT 74 U/L (9-52) H 05/19/17 07:40 Alkaline Phosphatase 237 U/L (38-126) H 05/19/17 07:40 Troponin I < 0.0120 ng/mL (0.00-0.120) 05/19/17 04:30 Total Protein 5.5 G/DL (6.3-8.2) L 05/19/17 07:40 Albumin 2.9 g/dL (3.5-5.0) L 05/19/17 07:40 Globulin 2.6 gm/dL (2.2-3.9) 05/19/17 07:40 Albumin/Globulin Ratio 1.1 (1.0-2.1) 05/19/17 07:40 TSH 3rd Generation 3.22 mIU/ML (0.46-4.68) 05/18/17 19:30 Urine Opiates Screen Positive (NEGATIVE) H 05/18/17 19:30 Urine Methadone Screen Negative (NEGATIVE) 05/18/17 19:30 Ur Barbiturates Screen Negative (NEGATIVE) 05/18/17 19:30 Ur Phencyclidine Scrn Negative (NEGATIVE) 05/18/17 19:30 Ur Amphetamines Screen Negative (NEGATIVE) 05/18/17 19:30 U Benzodiazepines Scrn Positive (NEGATIVE) H 05/18/17 19:30 U Oth Cocaine Metabols Negative (NEGATIVE) 05/18/17 19:30 U Cannabinoids Screen Negative (NEGATIVE) 05/18/17 19:30 Alcohol, Quantitative < 10 mg/dl (0-10) 05/18/17 19:30 - Hospital Course Hospital Course: 56-year-old female with a past medical history significant for asthma, COPD, long-standing tobacco abuse and current smoker, hypertension, craniotomy for brain aneurysm, anxiety, ETOH abuse ,chronic pain syndrome , benign positional vertigo,presented to the emergency department complaining of 2 months of positional vertigo and occasional nausea and nonbloody nonbilious emesis. She states that she went to [facility] 3 weeks ago for this and underwent a CT scan was then discharged. However she denied improving afterwards. Today, she experienced chest pain radiating from her back worse on palpation, and worse with movement, mild to moderate in severity, not related to taking a deep breath. In the emergency department, vital signs were unremarkable other than initial tachycardia which resolved spontaneously. The patient was noted to be wheezing on exam although not in respiratory distress. Laboratory results are significant for white count of 12.8, hemoglobin of 11.8, normal coags, sodium 131, potassium 3.0, chloride of 91, magnesium of 1.3, alkaline phosphatase of 251, undetectable troponin level, and urine toxicology positive for opiates and benzodiazepines. CXR shows no acute cardiopulmonary problems. The patient was placed under observation for correction of her electrolytes, likely secondary to nausea and vomiting. repeat lat test after hydration showed corrected hyponatremai, hypochloremia, hypomagnesemia and hypokalemia. Trop x 2 were negative PT was consulted and patient's gait was evaluated. She will be discharged home with outpatient PT and walker. Counselled patient to follow up with vestibular PT . Patient has home visiting services/ health aid and does not want to go for [facility] Will discharge patient home Advice to follow up with PMD Dr. Elijah Gallagher Electrolyte abnormality -- hyponatremai, hypokalemia, hypocholremia most likeley secondary to volume depletion - Corrected after IVF Benign positional vertigo, chronic-- continue Meclizine PO . Recommended vestibular PT as out patient . Recommended to use walker with ambulation for more gait stability . Follow up with neurologist as outpatient Chest pain, likely musculoskeletal in nature. Chronic pain syndrome-- on narcotics. Follow up with her pain specialist Dr. Hoyt COPD with rhonchi - chronic . Continue Theophilline,spiriva, albuterol Tobacco abuse-- counselled Hypertension- stable anxiety-on xanax Discharge Exam - Head Exam Head Exam: ATRAUMATIC, NORMAL INSPECTION, NORMOCEPHALIC (with post surgical scar LEFT scalp/forehead) Additional comments: elderly looking for her age craniotomy scar - Eye Exam Eye Exam: EOMI, Normal appearance, PERRL Pupil Exam: NORMAL ACCOMODATION - ENT Exam ENT Exam: Mucous Membranes Moist, Normal Exam - Neck Exam Neck exam: Full Rom, Normal Inspection - Respiratory Exam Respiratory Exam: Rhonchi (bilateral). absent: Accessory Muscle Use, Wheezes, Respiratory Distress - Cardiovascular Exam Cardiovascular Exam: REGULAR RHYTHM, RRR, +S1, +S2. absent: JVD - GI/Abdominal Exam GI & Abdominal Exam: Normal Bowel Sounds, Soft. absent: Distended, Guarding, Rebound, Tenderness - Rectal Exam Rectal Exam: Deferred - Extremities Exam Extremities exam: normal capillary refill, normal inspection, pedal pulses present - Back Exam Back exam: NORMAL INSPECTION - Neurological Exam Neurological exam: Alert, CN II-XII Intact, Oriented x3, Reflexes Normal - Psychiatric Exam Psychiatric exam: Anxious, Flat Affect - Skin Skin Exam: Dry, Intact, Normal Color, Warm Discharge Plan - Discharge Medications Prescriptions: Meclizine [Meclizine*] 25 mg PO Q6 #30 tab - Follow Up Plan Condition: STABLE Disposition: HOME/ ROUTINE Patient education suggested?: Yes Instructions: Vertigo (DC), Benign Paroxysmal Positional Vertigo (DC) Referrals: Amisha Nava MD [Staff Provider] -
[2017-05-19 12:04] VITALS: BP 100/69; PULSE 85; TEMP 98.2; O2SAT 95
--- NOTE | 2017-05-20 01:10 | CARD ---
APPROVED REPORT EKG Measurement Heart [id number] <Conclusion> Normal sinus rhythm Normal ECG
--- NOTE | 2017-05-20 01:21 | CARD ---
APPROVED REPORT EKG Measurement Heart [id number] <Conclusion> Sinus tachycardia with PVCs Otherwise normal ECG
== END 2017-05-19 14:16 | disposition home or self-care (01) ==
LOC: H.ER 18:46 → H.ERHOLD 20:25 → H.TEL 22:26
PROVIDERS: ADMIT Internal Medicine; ATTEND Internal Medicine
DX: E87.1 Hypo-osmolality and hyponatremia (principal); E83.42 Hypomagnesemia; E87.6 Hypokalemia; H81.10 Benign paroxysmal vertigo, unspecified ear; Z72.0 Tobacco use; Z91.012 Allergy to eggs; F41.9 Anxiety disorder, unspecified; J44.9 Chronic obstructive pulmonary disease, unspecified; J45.909 Unspecified asthma, uncomplicated; I10 Essential (primary) hypertension; G89.4 Chronic pain syndrome; R07.9 Chest pain, unspecified; E87.8 Other disorders of electrolyte and fluid balance, not elsewhere classified
CPT/HCPCS: 36415; 71010; 80048; 80053; 80076; 80320; 80324; 80345; 80346; 80349; 80353; 80358; 80361; 83735; 83992; 84100; 84443; 84484; 85025; 85027; 85378; 85610; 85651; 85730; 93005; 94640; 96365; 97161; 99285; G0378; G8978; G8979; J1650; J1885; J2270; J2405; J3480; J7040

== ENCOUNTER 2017-07-15 17:03 | Emergency (ER) | payer MEDICAID ==
[2017-07-15 17:16] VITALS: BP 128/78; PULSE 96; RESP 18; TEMP 98.1; O2SAT 100
--- NOTE | 2017-07-15 18:18 | ED PDOC ---
HPI: General Adult Time Seen by Provider: 07/15/17 17:19 Chief Complaint (Nursing): Chest Pain Chief Complaint (Provider): Elevated LFTs History Per: Patient History/Exam Limitations: no limitations Additional Complaint(s): Patient is a 56 y/o female with no significant past medical history sent to the emergency department by her [facility] doctor for elevated LFTs. Reports chronic headache, neck pain, and abdominal pain. Notes that she was seen by the pain management doctor today and is requesting pain medication. Denies any other complaints. PCP: Dr. Re Decker Past Medical History Reviewed: Historical Data, Nursing Documentation, Vital Signs Vital Signs: Last Vital Signs Temp 98.1 F 07/15/17 17:12 Pulse 96 H 07/15/17 17:12 Resp 18 07/15/17 17:12 BP 128/78 07/15/17 17:12 Pulse Ox 100 07/15/17 18:37 - Medical History PMH: Anxiety, Asthma, COPD, HTN, Chronic Pain (back pain) Denies: HIV, Chronic Kidney Disease - Surgical History Surgical History: - Family History Family History: States: Unknown Family Hx, CAD - Immunization History Hx Tetanus Toxoid Vaccination: No Hx Influenza Vaccination: No Hx Pneumococcal Vaccination: No - Home Medications Home Medications: Ambulatory Orders Medication Instructions Recorded Alprazolam [Xanax] 1 mg PO TID PRN 07/09/14 Hydrocodone/Acetaminophen [Vicodin 1 tab PO QID PRN 07/09/14 Hp 10-300 mg Tablet] Irbesartan [Avapro] 150 mg PO DAILY 07/09/14 Oxycodone HCl [Oxycontin] 20 mg PO Q12H PRN 11/29/15 Pantoprazole Sodium [Protonix] 40 mg PO DAILY 11/29/15 Theophylline [Gideon-Dur] 200 mg PO BID 11/29/15 Zolpidem [Ambien] 10 mg PO HS 11/29/15 Albuterol HFA [Ventolin HFA 90 2 puff INH QID PRN 12/04/16 mcg/actuation (8 g)] Omgle-5-Ijoi Ethyl Esters 1 GM 1 gm PO DAILY 05/18/17 [Lovaza] Meclizine [Meclizine*] 25 mg PO Q6 #30 tab 10/03/17 - Allergies Allergies/Adverse Reactions: Allergies Allergy/AdvReac Type Severity Reaction Status Date / Time EGG Allergy RASH Verified 12/03/16 18:00 Physical Exam - Reviewed Nursing Documentation Reviewed: Yes Vital Signs Reviewed: Yes - Physical Exam Appears: Positive for: No Acute Distress Head Exam: Positive for: ATRAUMATIC, NORMAL INSPECTION, NORMOCEPHALIC Skin: Positive for: Normal Color, Warm, Dry Eye Exam: Positive for: Normal appearance Neck: Positive for: Normal, Painless ROM, Supple Cardiovascular/Chest: Positive for: Regular Rate, Rhythm. Negative for: Murmur Respiratory: Positive for: Wheezing (mild bilateral) Gastrointestinal/Abdominal: Positive for: Soft, Tenderness (right lower quadrant ) Extremity: Positive for: Normal ROM. Negative for: Pedal Edema Neurologic/Psych: Positive for: Alert, Oriented (x3) - Laboratory Results Result Diagrams: 07/15/17 18:29 07/15/17 18:29 - ECG O2 Sat by Pulse Oximetry: 100 (RA) Pulse Ox Interpretation: Normal Medical Decision Making Medical Decision Making: Time: 17:47 Initial impression: Chronic pain Initial plan: Abdominal/pelvic CT scan with IV contrast EKG Alcohol serum, CMP, Lipase, CBC PTT, Prothrombin Time ED Urine Dipstick Urine Drug Screening Urinalysis Reevaluation Scribe Attestation: Documented by Anita López, acting as a scribe for Pat Ordaz MD. Provider Scribe Attestation: All medical record entries made by the Scribe were at my direction and personally dictated by me. I have reviewed the chart and agree that the record accurately reflects my personal performance of the history, physical exam, medical decision making, and the department course for this patient. I have also personally directed, reviewed, and agree with the discharge instructions and disposition. Disposition - Clinical Impression Clinical Impression: Abdominal pain, Chronic diarrhea - Disposition Referrals: Glen Kathleen MD, PhD [Staff Provider] - Disposition: Routine/Home Disposition Time: 20:53 Condition: STABLE Instructions: Chronic Diarrhea (ED), Abdominal Pain (ED) Forms: [employer] (South African)
[2017-07-15] MEDS ORDERED: Oxycodone/Acetaminophen 5/325 mg Tab PO STA (18:23)
[2017-07-15 18:34] LABS: BASO % 0.3 % (0.0-2.0); EOS # 0.1 K/uL (0.0-0.7); EOS % 0.8 % (0.0-4.0); LYMPH # 2.7 K/uL (1.0-4.3); LYMPH % 25.4 % (20.0-40.0); MEAN CELL VOLUME 106.1 fl (81.0-99.0); MEAN CORPUSCULAR HEMOGLOBIN 35.7 pg (27.0-31.0); MEAN CORPUSCULAR HGB CONC 33.6 g/dL (33.0-37.0); MEAN PLATELET VOLUME 8.1 fl (7.2-11.7); MONO # 0.9 K/uL (0.0-0.8); MONO % 8.6 % (0.0-10.0); NEUT # 6.9 K/uL (1.8-7.0); NEUT % 64.9 % (50.0-75.0); RED CELL DISTRIBUTION WIDTH 13.2 % (11.5-14.5); WHITE BLOOD COUNT 10.6 K/uL (4.8-10.8)
[2017-07-15 18:43] LABS: URINE BILIRUBIN NEGATIVE (NEGATIVE); URINE BLOOD NEGATIVE (NEGATIVE); URINE COLOR STRAW (YELLOW); URINE GLUCOSE (UA) NEG (Normal); URINE KETONE NEGATIVE (NEGATIVE); URINE LEUKOCYTE ESTERASE NEG Leu/uL (Negative); URINE PROTEIN NEGATIVE (NEGATIVE); URINE UROBILINOGEN 0.2-1.0 mg/dL (0.2-1.0); WBC URINE < 1 /hpf (0-5)
[2017-07-15 18:51] LABS: RBC URINE < 1 /hpf (0-3)
[2017-07-15 18:55] LABS: ALB/GLOB RATIO 1.5 (1.0-2.1); ALCOHOL SERUM 98 mg/dl (0-10); ALKALINE PHOSPHATASE 75 U/L (38-126); ALT/SGPT 37 U/L (9-52); AST/SGOT 50 U/L (14-36); BILIRUBIN,TOTAL 0.5 mg/dl (0.2-1.3); BLOOD UREA NITROGEN 8 mg/dl (7-17); CALCIUM 9.4 mg/dL (8.4-10.2); CARBON DIOXIDE 26 mmol/L (22-30); CHLORIDE 100 mmol/L (98-107); GFR AFRICAN-AMERICAN > 60; GLUCOSE,RANDOM 80 mg/dL (65-105); LIPASE 53 U/L (23-300); SODIUM 136 mmol/l (132-148); TOTAL PROTEIN 7.5 G/DL (6.3-8.2)
[2017-07-15 19:03] LABS: POTASSIUM 4.5 MMOL/L (3.6-5.0)
[2017-07-15] MEDS ORDERED: Iohexol 300 100 ML IJ ONE (19:16)
[2017-07-15] MEDS ORDERED: Sodium Chloride 0.9% 50 ML IV ONE (19:16)
[2017-07-15] MEDS ORDERED: Morphine 4 MG/ML VIAL ONE (20:43)
--- NOTE | 2017-07-16 09:41 | CT ---
PROCEDURE: CT Abdomen and Pelvis with contrast HISTORY: RLQ pain COMPARISON: None. TECHNIQUE: Contrast dose: 95 mL Omnipaque 300 Radiation dose: Total exam DLP = 514.7 mGy-cm. This CT exam was performed using one or more of the following dose reduction techniques: Automated exposure control, adjustment of the mA and/or kV according to patient size, and/or use of iterative reconstruction technique. FINDINGS: LOWER THORAX: Partially imaged right middle lobe consolidation. LIVER: Steatosis. Stable mild central ductal dilatation. GALLBLADDER AND BILE DUCTS: Unremarkable. Stable prominence of the CBD measuring up to 1.1 centimeter. PANCREAS: Stable mild ductal dilatation. SPLEEN: Unremarkable main spleen and splenule. ADRENALS: Unremarkable. No mass. KIDNEYS AND URETERS: Stable subcentimeter left renal cysts. No hydronephrosis. No solid mass. VASCULATURE: Atherosclerotic calcifications. No aortic aneurysm. BOWEL: Unremarkable. No obstruction. No gross mural thickening. APPENDIX: Not visualized. PERITONEUM: Unremarkable. No free fluid. No free air. LYMPH NODES: Unremarkable. No enlarged lymph nodes. BLADDER: Unremarkable. REPRODUCTIVE: Not visualized. BONES: No acute fracture. OTHER FINDINGS: Radiopaque foreign body in posterior spinal canal extending from T12-L4 redemonstrated. IMPRESSION: Partially imaged right middle lobe consolidation. Stable biliary and pancreatic ductal dilatation. Additional stable findings as above.
--- NOTE | 2017-07-16 10:39 | CARD ---
APPROVED REPORT EKG Measurement Heart [id number] <Conclusion> Normal sinus rhythm Normal ECG
== END 2017-07-15 21:07 | disposition home or self-care (01) ==
LOC: H.ER 17:03
DX: R10.9 Unspecified abdominal pain (principal); R19.7 Diarrhea, unspecified; R94.5 Abnormal results of liver function studies; F41.9 Anxiety disorder, unspecified; G89.29 Other chronic pain; I10 Essential (primary) hypertension; J44.9 Chronic obstructive pulmonary disease, unspecified; K52.9 Noninfective gastroenteritis and colitis, unspecified
CPT/HCPCS: 74177; 80053; 80320; 80324; 80345; 80346; 80349; 80353; 80358; 80361; 81003; 83690; 83992; 85025; 85610; 85730; 93005; 96374; 96375; 99282; J2270; J2405; Q9967

== ENCOUNTER 2017-12-18 23:04 | Emergency (ER) | payer MEDICAID ==
[2017-12-18 23:17] VITALS: RESP 18
--- NOTE | 2017-12-19 00:33 | CT ---
EXAM: CT Head Without Intravenous Contrast EXAM DATE/TIME: 12/18/2017 11:24 PM CLINICAL HISTORY: 57 years old, female; Injury or trauma; Fall; Initial encounter; Concussion / head injury; Consciousness not specified; Prior surgery; Surgery date: 6+ months; Surgery type: HX of aneurysm; Additional info: Fall, head injury, ETOH TECHNIQUE: Axial computed tomography images of the head/brain without intravenous contrast. All CT scans at this facility use one or more dose reduction techniques, viz.: automated exposure control; ma/kV adjustment per patient size (including targeted exams where dose is matched to indication; i.e. head); or iterative reconstruction technique. Coronal and sagittal reformatted images were created and reviewed. COMPARISON: CT - HEAD W/O CONTRAST 2016-01-30 00:22 FINDINGS: Brain: There is mild prominence of sulci and gyri. Ventricles are normal in size. There is no midline shift. There is streak artifact from multiple clips in the left supraclinoid region. There is left frontal encephalomalacia, unchanged. There is left frontal dural thickening unchanged. There are no acute intracranial abnormalities. Wood-white differentiation is maintained. Ventricles: See above Bony structures: There is old left temporal craniotomy. There are defects in the anterior and posterior whitehead of the left frontal sinus, unchanged. Soft tissues: There is right frontal and facial bruising. There is minimal right periorbital edema and swelling. Sinuses: There is opacification of the left frontal sinus similar to that seen on the prior study. There is mucoperiosteal thickening in the right maxillary sinus. Ears and mastoids: Middle ears and mastoids unremarkable. Orbits: Orbital contents are unremarkable. IMPRESSION: Right facial bruising and swelling, no acute intracranial abnormality; postsurgical changes from prior aneurysm clipping
[2017-12-19 00:41] LABS: BASO % 0.2 % (0.0-2.0); EOS # 0.2 K/uL (0.0-0.7); EOS % 2.1 % (0.0-4.0); HEMOGLOBIN 14.8 g/dL (12.0-16.0); LYMPH # 1.8 K/uL (1.0-4.3); LYMPH % 24.8 % (20.0-40.0); MEAN CELL VOLUME 101.9 fl (81.0-99.0); MEAN CORPUSCULAR HEMOGLOBIN 34.8 pg (27.0-31.0); MEAN CORPUSCULAR HGB CONC 34.1 g/dL (33.0-37.0); MEAN PLATELET VOLUME 7.8 fl (7.2-11.7); MONO # 0.6 K/uL (0.0-0.8); MONO % 7.8 % (0.0-10.0); NEUT # 4.8 K/uL (1.8-7.0); NEUT % 65.1 % (50.0-75.0); RBC 4.27 Mil/uL (3.80-5.20); RED CELL DISTRIBUTION WIDTH 12.9 % (11.5-14.5); WHITE BLOOD COUNT 7.3 K/uL (4.8-10.8)
--- NOTE | 2017-12-19 00:45 | CT ---
EXAM: CT Maxillofacial Without Intravenous Contrast EXAM DATE/TIME: 12/18/2017 11:24 PM CLINICAL HISTORY: 57 years old, female; Injury or trauma; Fall; Initial encounter; Blunt trauma (contusions or hematomas); Orbit/periorbital; Right; Additional info: Fall facial injury, ETOH TECHNIQUE: Axial computed tomography images of the face without intravenous contrast. All CT scans at this facility use one or more dose reduction techniques, viz.: automated exposure control; ma/kV adjustment per patient size (including targeted exams where dose is matched to indication; i.e. head); or iterative reconstruction technique. Coronal and sagittal reformatted images were created and reviewed. COMPARISON: CT head 12/18/17, CT head 01/30/16 FINDINGS: Limitations: Technique limits evaluation of the intracranial structures Bones/joints: There postsurgical changes of left frontal temporal craniotomy. There are old surgical defects in the anterior and posterior whitehead of the left frontal sinus. There are old defects in the roof of the left orbit. Soft tissues: There is right cheek, periorbital and frontal bruising. There are no underlying fractures. There are no facial masses. Vasculature: There is streak artifact from left supraclinoid aneurysm clips. There are vascular calcifications. Orbits: Globes are intact. There is no acute retrobulbar abnormalities Sinuses: There is chronic opacification of the left frontal sinus. There is mucoperiosteal thickening in the right maxillary sinus. There is no acute sinusitis. Ears and mastoids: Middle ears and mastoids are unremarkable. Dental: Dental streak there are multiple dental caries. There are apical erosions. IMPRESSION: Right facial, frontal and periorbital bruising/edema, no underlying fracture; remote postsurgical changes of aneurysm clipping
[2017-12-19 00:50] LABS: ALB/GLOB RATIO 1.2 (1.0-2.1); ALBUMIN 3.9 g/dL (3.5-5.0); ALT/SGPT 51 U/L (9-52); AST/SGOT 46 U/L (14-36); BLOOD UREA NITROGEN 4 mg/dl (7-17); CALCIUM 9.2 mg/dL (8.4-10.2); GFR AFRICAN-AMERICAN > 60; GFR NON-AFRICAN AMERICAN > 60
[2017-12-19] MEDS ORDERED: Potassium Chloride 20 mEq ER Tab PO STA (01:30)
--- NOTE | 2017-12-19 01:31 | ED PDOC ---
- Laboratory Results Result Diagrams: 12/19/17 00:38 12/19/17 00:38 - ECG O2 Sat by Pulse Oximetry: 95 - Progress ED Course And Treament: 0000 Signed out to me pending labs and CT report [id number] CT head/orbits w/o contrast: Right facial bruising and swelling, no acute intracranial abnormality; postsurgical changes from prior aneurysm clipping On re-evaluation, pt. sleeping comfortably. Easily arousable Case and labs d/w Dr. Chao who recommends Kdur 40 mEq PO. Kdur 40 mEq PO ordered. 0325 On re-evaluation, pt. sleeping comfortably. 0543 Pt. AOx3. Seen walking to bathroom with steady gait. Offers no complaints. No slurred speech. Disposition - Clinical Impression Clinical Impression: Facial contusion, Alcohol intoxication, Head injury - POA Present On Arrival: None - Disposition Referrals: John Mcclelland [Outside] Disposition: Routine/Home Disposition Time: 05:45 Condition: IMPROVED Instructions: Contusion (DC), Head Injury Observation (DC), Alcohol Use - When Is Drinking a Problem? Forms: John Dillard (Estonian)
[2017-12-19] MEDS ORDERED: Albuterol 0.083% Inhal Sol (2.5 mg/3 mL) UD INH STA (02:41)
[2017-12-19] MEDS ORDERED: Potassium Chloride 20 mEq ER Tab PO ONE (02:56)
[2017-12-19 07:09] VITALS: BP 99/64; PULSE 94; TEMP 98.2; O2SAT 98
== END 2017-12-19 06:35 | disposition home or self-care (01) ==
LOC: H.ER 23:04
DX: F10.129 Alcohol abuse with intoxication, unspecified (principal); S00.10XA Contusion of unspecified eyelid and periocular area, initial encounter; S00.83XA Contusion of other part of head, initial encounter; W19.XXXA Unspecified fall, initial encounter; Y92.89 Other specified places as the place of occurrence of the external cause

== ENCOUNTER 2018-01-07 00:30 | Inpatient (IN) | payer MEDICAID ==
[2018-01-07] MEDS ORDERED: DiphenhydrAMINE 50 mg/ml Inj IV STA (01:55)
[2018-01-07] MEDS ORDERED: Sodium Chloride 0.9% 1,000 ML IV STA (01:55)
[2018-01-07] MEDS ORDERED: DiphenhydrAMINE 50 mg/ml Inj ONE (02:03)
[2018-01-07 02:15] LABS: BASO # 0.1 K/uL (0.0-0.2); EOS # 0.2 K/uL (0.0-0.7); EOS % 2.3 % (0.0-4.0); HEMOGLOBIN 14.6 g/dL (12.0-16.0); LYMPH # 2.3 K/uL (1.0-4.3); LYMPH % 25.4 % (20.0-40.0); MEAN CELL VOLUME 100.6 fl (81.0-99.0); MEAN CORPUSCULAR HEMOGLOBIN 35.3 pg (27.0-31.0); MEAN CORPUSCULAR HGB CONC 35.2 g/dL (33.0-37.0); MEAN PLATELET VOLUME 7.6 fl (7.2-11.7); MONO # 1.1 K/uL (0.0-0.8); MONO % 11.8 % (0.0-10.0); NEUT # 5.4 K/uL (1.8-7.0); NEUT % 59.5 % (50.0-75.0); RBC 4.12 Mil/uL (3.80-5.20); WHITE BLOOD COUNT 9.1 K/uL (4.8-10.8)
[2018-01-07 02:24] LABS: ALB/GLOB RATIO 1.3 (1.0-2.1); ALBUMIN 4.4 g/dL (3.5-5.0); ALT/SGPT 42 U/L (9-52); AST/SGOT 55 U/L (14-36); BLOOD UREA NITROGEN 4 mg/dl (7-17); CALCIUM 9.1 mg/dL (8.4-10.2); GFR AFRICAN-AMERICAN > 60; GFR NON-AFRICAN AMERICAN > 60
[2018-01-07 02:34] LABS: BARBITURATES, UR NEGATIVE (NEGATIVE); BENZODIAZEPINES, UR POSITIVE (NEGATIVE); OPIATES, UR POSITIVE (NEGATIVE); PHENCYCLIDINE, UR NEGATIVE (NEGATIVE)
[2018-01-07 02:38] LABS: SQUAMOUS EPITHIAL 3 /hpf (0-5); URINE BACTERIA OCC (<OCC); URINE BILIRUBIN NEGATIVE (NEGATIVE); URINE BLOOD NEGATIVE (NEGATIVE); URINE CLARITY SLIGHTY-CLOUDY (Clear); URINE COLOR STRAW (YELLOW); URINE GLUCOSE (UA) NEG (Normal); URINE LEUKOCYTE ESTERASE NEG Leu/uL (Negative); URINE PROTEIN NEGATIVE (NEGATIVE); URINE UROBILINOGEN 0.2-1.0 mg/dL (0.2-1.0)
--- NOTE | 2018-01-07 03:39 | CT ---
EXAM: CT Head Without Intravenous Contrast CLINICAL HISTORY: 57 years old, female; Pain; Headache; Prior surgery; Surgery date: 6+ months; Surgery type: Aneurysm clips TECHNIQUE: Axial computed tomography images of the head/brain without intravenous contrast. All CT scans at this facility use one or more dose reduction techniques, viz.: automated exposure control; ma/kV adjustment per patient size (including targeted exams where dose is matched to indication; i.e. head); or iterative reconstruction technique. Coronal and sagittal reformatted images were created and reviewed. COMPARISON: CT - HEAD W/O CONTRAST 2017-12-18 23:32 FINDINGS: Brain: Mild atrophy. No intracranial hemorrhage. No mass. Minimal encephalomalacia within left frontal region. No definite edema. Dural thickening along left frontal convexity. Ventricles: No hydrocephalus. Bones/joints: Left frontal craniotomy. No acute fracture. Soft tissues: Mild frontal soft tissue swelling. Vasculature: Aneurysm clips. Mild atherosclerotic disease of intracranial arteries. Sinuses: Postsurgical changes/opacification of left frontal sinus, grossly stable. Scattered minimal to mild mucosal thickening. RIGHT maxillary retention cyst. Mastoid air cells: No mastoid effusion. Orbits: Unremarkable as visualized. IMPRESSION: 1. No definite acute intracranial abnormality. 2. Incidental/non-acute findings are described above.
--- NOTE | 2018-01-07 03:43 | ED PDOC ---
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 Pineda), presents to ER for evaluation of headache, nausea, vomiting and bilateral flank pain for the past 24 hours. Patient states she has been unable to tolerate her Oxycontin or Xanax;. She was seen in this ED 3 weeks ago, had labs and imaging done, patient was intoxicated at that time. She denies any alcohol use at present. She has no other medical complaints. PMD: [facility] Past Medical History Reviewed: Historical Data, Nursing Documentation, Vital Signs Vital Signs: Last Vital Signs Temp 97.8 F 01/08/18 04:49 Pulse 84 01/08/18 04:49 Resp 18 01/08/18 04:49 BP 129/87 01/08/18 04:49 Pulse Ox 95 01/08/18 04:49 - Medical History PMH: Anxiety, Asthma, COPD, HTN, Chronic Pain (back pain) Denies: HIV, Chronic Kidney Disease - Surgical History Surgical History: - Family History Family History: States: Unknown Family Hx, CAD - Immunization History Hx Tetanus Toxoid Vaccination: No Hx Influenza Vaccination: No Hx Pneumococcal Vaccination: No - Home Medications Home Medications: Ambulatory Orders Medication Instructions Recorded Alprazolam [Xanax] 1 mg PO TID PRN 07/09/14 Hydrocodone/Acetaminophen [Vicodin 1 tab PO QID PRN 07/09/14 Hp 10-300 mg Tablet] Oxycodone HCl [Oxycontin] 20 mg PO Q12H PRN 11/29/15 Theophylline [Gideon-Dur] 200 mg PO BID 11/29/15 Zolpidem [Ambien] 10 mg PO HS 11/29/15 Albuterol HFA [Ventolin HFA 90 2 puff INH QID PRN 12/04/16 mcg/actuation (8 g)] Codeine [Codeine] 30 mg PO Q6 PRN 01/07/18 amLODIPine [Norvasc] 10 mg PO DAILY 01/07/18 - Allergies Allergies/Adverse Reactions: Allergies Allergy/AdvReac Type Severity Reaction Status Date / Time EGG Allergy RASH Verified 12/18/17 23:10 Review of Systems ROS Statement: Except As Marked, All Systems Reviewed And Found Negative Constitutional: Negative for: Fever, Chills Cardiovascular: Negative for: Chest Pain Respiratory: Negative for: Shortness of Breath Gastrointestinal: Positive for: Nausea, Vomiting, Other (bilateral flank pain) Neurological: Positive for: Headache Physical Exam - Reviewed Nursing Documentation Reviewed: Yes Vital Signs Reviewed: Yes - Physical Exam Appears: Positive for: Non-toxic, Uncomfortable Head Exam: Negative for: NORMOCEPHALIC (indentation deformity to left forehead ( old)) Skin: Positive for: Normal Color Eye Exam: Positive for: Normal appearance ENT: Positive for: Other (tacky mucus membranes) Neck: Positive for: Normal, Supple Cardiovascular/Chest: Positive for: Regular Rate, Rhythm Respiratory: Positive for: Normal Breath Sounds. Negative for: Respiratory Distress Gastrointestinal/Abdominal: Positive for: Normal Exam, Soft. Negative for: Tenderness Back: Positive for: L CVA Tenderness, R CVA Tenderness Extremity: Positive for: Normal ROM. Negative for: Deformity Neurologic/Psych: Positive for: Alert, Oriented - Laboratory Results Result Diagrams: 01/08/18 04:40 01/08/18 04:40 - ECG O2 Sat by Pulse Oximetry: 99 (RA) Pulse Ox Interpretation: Normal Medical Decision Making Medical Decision Making: Impression: Headache, flank pain, vomiting Plan: -- Labs -- IV Fluids -- CT Head w/o contrast -- Urinalysis -- Morpine 2mg IV -- Benadryl 25mg IV -- Phenergan 25mg IV Time: 0230 Labs reviewed and significant for hyponatremia, patient to be admitted for further treatment of hyponatremia. Patient to be admitted under Dr. Patterson, medicine makeup sales consultant. CT Head FINDINGS: Brain: Mild atrophy. No intracranial hemorrhage. No mass. Minimal encephalomalacia within left frontal region. No definite edema. Dural thickening along left frontal convexity. Ventricles: No hydrocephalus. Bones/joints: Left frontal craniotomy. No acute fracture. Soft tissues: Mild frontal soft tissue swelling. Vasculature: Aneurysm clips. Mild atherosclerotic disease of intracranial arteries. Sinuses: Postsurgical changes/opacification of left frontal sinus, grossly stable. Scattered minimal to mild mucosal thickening. RIGHT maxillary retention cyst. Mastoid air cells: No mastoid effusion. Orbits: Unremarkable as visualized. IMPRESSION: 1. No definite acute intracranial abnormality. 2. Incidental/non-acute findings are described above. Scribe Attestation: Documented by Sadie Banks, acting as a scribe for Chaparro Pemberton MD Provider Scribe Attestation: All medical record entries made by the Scribe were at my direction and personally dictated by me. I have reviewed the chart and agree that the record accurately reflects my personal performance of the history, physical exam, medical decision making, and the department course for this patient. I have also personally directed, reviewed, and agree with the discharge instructions and disposition. Disposition - Clinical Impression Clinical Impression: Hyponatremia - Patient ED Disposition Is Patient to be Admitted: Yes Discussed With : Deny Patterson Counseled Patient/Family Regarding: Studies Performed, Diagnosis - Disposition Disposition Time: 03:40 Condition: FAIR
[2018-01-07 07:51] LABS: HEMOGLOBIN 14.2 g/dL (12.0-16.0); MEAN CORPUSCULAR HEMOGLOBIN 35.1 pg (27.0-31.0); MEAN CORPUSCULAR HGB CONC 34.7 g/dL (33.0-37.0); RBC 4.03 Mil/uL (3.80-5.20); RED CELL DISTRIBUTION WIDTH 12.9 % (11.5-14.5); WHITE BLOOD COUNT 7.4 K/uL (4.8-10.8)
[2018-01-07 08:13] LABS: LDL CHOLESTEROL 95 mg/dL (0-129)
[2018-01-07 08:15] LABS: BLOOD UREA NITROGEN 4 mg/dl (7-17); GFR AFRICAN-AMERICAN > 60; GFR NON-AFRICAN AMERICAN > 60
[2018-01-07 08:16] LABS: ALB/GLOB RATIO 1.2 (1.0-2.1); ALBUMIN 3.6 g/dL (3.5-5.0); ALT/SGPT 48 U/L (9-52); AST/SGOT 43 U/L (14-36); CALCIUM 9.2 mg/dL (8.4-10.2); HDL CHOLESTEROL 80 MG/DL (30-70)
[2018-01-07 08:18] LABS: T4 6.36 ug/dl (5.5-11.0)
[2018-01-07 08:32] LABS: T3 1.08 nmol/L (1.49-2.60)
--- NOTE | 2018-01-07 08:41 | RAD ---
HISTORY: admit COMPARISON: Chest radiograph dated 05/18/2017. FINDINGS: LUNGS: Hyperinflated lungs. No active pulmonary disease. PLEURA: Flattened diaphragms. No significant pleural effusion identified, no pneumothorax apparent. CARDIOVASCULAR: Atherosclerotic aortic calcifications. Cardiomediastinal silhouette within normal limits. OSSEOUS STRUCTURES: Unchanged. VISUALIZED UPPER ABDOMEN: Normal. OTHER FINDINGS: None. IMPRESSION: No focal consolidation or pleural effusion. COPD configuration.
[2018-01-07] MEDS: oxyCODONE 20 mg ER Tab (oxyCONTIN) PO PRN ×2 (08:47→20:54)
[2018-01-07] MEDS: Enoxaparin 40 mg Syringe SC SCH (08:52)
[2018-01-07] MEDS ORDERED: THEOPHYLLINE 200 MG PO SCH (09:00)
--- NOTE | 2018-01-07 09:09 | CP.PCM.HP ---
History of Present Illness - History of Present Illness History of Present Illness: 57 yo ,f, Pmhx/o cerebral aneurysm resulting in a craniotomy requiring muscle graft from thigh to forehead, chronic back pain (pain management with Dr. 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 Patient reports a recent fall 2 weeks ago. Patient recently seen 3 days ago in ED, imaging done, intox at that time. She denies cough, SOB, n,v,d, abd pain, dysuria. PMd: [facility] Pain management: DR Pineda Present on Admission - Present on Admission Any Indicators Present on Admission: No History of DVT/PE: No History of Uncontrolled Diabetes: No Urinary Catheter: No Decubitus Ulcer Present: No Review of Systems - Review of Systems All systems: reviewed and no additional remarkable complaints except - Musculoskeletal Additional comments: back pain, flank pain b/l Past Patient History - Infectious Disease Hx of Infectious Diseases: None - Past Medical History & Family History Past Medical History?: Yes - Past Social History Smoking Status: Light Smoker < 10 Cigarettes Daily - CARDIAC Hx Cardiac Disorders: Yes Hx Hypertension: Yes - PULMONARY Hx Respiratory Disorders: Yes Hx Asthma: Yes Hx Chronic Obstructive Pulmonary Disease (COPD): Yes - NEUROLOGICAL Hx Neurological Disorder: Yes Other/Comment: 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" - HEENT Hx HEENT Problems: No - RENAL Hx Chronic Kidney Disease: No - ENDOCRINE/METABOLIC Hx Endocrine Disorders: No - HEMATOLOGICAL/ONCOLOGICAL Hx Blood Disorders: No Hx Human Immunodeficiency Virus (HIV): No - INTEGUMENTARY Hx Dermatological Problems: No - MUSCULOSKELETAL/RHEUMATOLOGICAL Hx Musculoskeletal Disorders: Yes Hx Back Pain: Yes Hx Falls: Yes - GASTROINTESTINAL Hx Gastrointestinal Disorders: Yes Hx Gastroesophageal Reflux: Yes Hx Irritable Bowel: Yes (WITH DIARRHEA) - GENITOURINARY/GYNECOLOGICAL Hx Genitourinary Disorders: No - PSYCHIATRIC Hx Psychophysiologic Disorder: Yes Hx Anxiety: Yes Hx Substance Use: No - SURGICAL HISTORY Hx Surgeries: Yes Hx Section: Yes (x3) Hx Hysterectomy: Yes Other/Comment: BRAIN ANEURYSM REPAIRED x2, 1 OVARY RESECTION - ANESTHESIA Hx Anesthesia: Yes Hx Anesthesia Reactions: No Hx Malignant Hyperthermia: No Meds Allergies/Adverse Reactions: Allergies Allergy/AdvReac Type Severity Reaction Status Date / Time EGG Allergy RASH Verified 12/18/17 23:10 Physical Exam - Constitutional Appears: Non-toxic, No Acute Distress - Head Exam Head Exam: ATRAUMATIC, NORMOCEPHALIC - Eye Exam Eye Exam: PERRL. absent: Nystagmus - ENT Exam ENT Exam: Mucous Membranes Moist - Respiratory Exam Respiratory Exam: Clear to Auscultation Bilateral. absent: Rhonchi, Wheezes - Cardiovascular Exam Cardiovascular Exam: REGULAR RHYTHM, +S1, +S2 - GI/Abdominal Exam GI & Abdominal Exam: Normal Bowel Sounds, Soft. absent: Tenderness - Extremities Exam Extremities exam: Positive for: normal inspection. Negative for: pedal edema - Back Exam Back exam: paraspinal tenderness, tenderness Additional comments: over left flank - Neurological Exam Neurological exam: Alert, Oriented x3 - Psychiatric Exam Psychiatric exam: Normal Affect, Normal Mood - Skin Additional comments: hematoma over upper back 15 cm x 7 cm s/o fall 2 weeks ago Results - Vital Signs Recent Vital Signs: Last Vital Signs Temp 98.5 F 01/07/18 08:06 Pulse 85 01/07/18 08:06 Resp 20 01/07/18 08:06 BP 126/81 01/07/18 08:06 Pulse Ox 93 L 01/07/18 08:06 - Labs Result Diagrams: 01/07/18 07:44 01/07/18 07:44 Labs: Laboratory Results - last 24 hr 01/07/18 01/07/18 01/07/18 02:11 02:11 02:15 WBC 9.1 RBC 4.12 Hgb 14.6 Hct 41.4 MCV 100.6 H MCH 35.3 H MCHC 35.2 RDW 13.0 Plt Count 197 MPV 7.6 Neut % (Auto) 59.5 Lymph % (Auto) 25.4 [place] % (Auto) 11.8 H Eos % (Auto) 2.3 Baso % (Auto) 1.0 Neut # (Auto) 5.4 Lymph # (Auto) 2.3 [place] # (Auto) 1.1 H Eos # (Auto) 0.2 Baso # (Auto) 0.1 Sodium 123 L Potassium 3.1 L Chloride 85 L Carbon Dioxide 22 Anion Gap 19 BUN 4 L Creatinine 0.5 L Est GFR ( Amer) > 60 Est GFR (Non-Af Amer) > 60 Random Glucose 90 Calcium 9.1 Total Bilirubin 0.6 AST 55 H ALT 42 Alkaline Phosphatase 108 Total Protein 7.8 Albumin 4.4 Globulin 3.4 Albumin/Globulin Ratio 1.3 Triglycerides Cholesterol LDL Cholesterol Direct HDL Cholesterol Vitamin B12 Thyroxine (T4) Total T3 TSH 3rd Generation Urine Color Urine Clarity Urine pH Ur Specific [place] Urine Protein Urine Glucose (UA) Urine Ketones Urine Blood Urine Nitrate Urine Bilirubin Urine Urobilinogen Ur Leukocyte Esterase Urine RBC (Auto) Urine Microscopic WBC Ur Squamous Epith Cells Urine Bacteria Urine Opiates Screen Positive H Urine Methadone Screen Negative Ur Barbiturates Screen Negative Ur Phencyclidine Scrn Negative Ur Amphetamines Screen Negative U Benzodiazepines Scrn Positive U Oth Cocaine Metabols Negative U Cannabinoids Screen Negative Alcohol, Quantitative 18 H 01/07/18 01/07/18 01/07/18 02:15 07:44 07:44 WBC 7.4 RBC 4.03 Hgb 14.2 Hct 40.8 MCV 101.0 H MCH 35.1 H MCHC 34.7 RDW 12.9 Plt Count 195 MPV Neut % (Auto) Lymph % (Auto) [place] % (Auto) Eos % (Auto) Baso % (Auto) Neut # (Auto) Lymph # (Auto) [place] # (Auto) Eos # (Auto) Baso # (Auto) Sodium 137 Potassium 3.3 L Chloride 100 Carbon Dioxide 27 Anion Gap 13 BUN 4 L Creatinine 0.5 L Est GFR ( Amer) > 60 Est GFR (Non-Af Amer) > 60 Random Glucose 89 Calcium 9.2 Total Bilirubin 1.0 AST 43 H D ALT 48 Alkaline Phosphatase 93 Total Protein 6.6 Albumin 3.6 Globulin 3.0 Albumin/Globulin Ratio 1.2 Triglycerides 57 D Cholesterol 189 LDL Cholesterol Direct 95 HDL Cholesterol 80 H Vitamin B12 518 Thyroxine (T4) 6.36 Total T3 1.08 L TSH 3rd Generation 3.64 Urine Color Straw Urine Clarity Slighty-cloudy Urine pH 6.0 Ur Specific [place] < 1.005 Urine Protein Negative Urine Glucose (UA) Neg Urine Ketones Negative Urine Blood Negative Urine Nitrate Negative Urine Bilirubin Negative Urine Urobilinogen 0.2-1.0 Ur Leukocyte Esterase Neg Urine RBC (Auto) 2 Urine Microscopic WBC 1 Ur Squamous Epith Cells 3 Urine Bacteria Occ H Urine Opiates Screen Urine Methadone Screen Ur Barbiturates Screen Ur Phencyclidine Scrn Ur Amphetamines Screen U Benzodiazepines Scrn U Oth Cocaine Metabols U Cannabinoids Screen Alcohol, Quantitative Assessment & Plan - Assessment and Plan (Free Text) Plan: Assessment/Plan 1) Hyponatremia May be secondary to vomiting or meds side effect -resolved after IV fluids NS 2) Hypokalemia Kcl 20 mcq oral given -f/u CMP tomorrow 3) Chronic back pain -left sciatalgia associated -under pain management Dr Pineda -Pain management consult suggested 4) Hx/o fall at home -may be related to med side effects -CT head: no intracraneal bleeding 5) DVT Prophylaxis -Lovenox 40 mg sc daily
--- NOTE | 2018-01-07 09:09 | CARD ---
APPROVED REPORT EKG Measurement Heart [id number] <Conclusion> Sinus tachycardia Possible Left atrial enlargement Borderline ECG
[2018-01-07] MEDS ORDERED: Potassium Chloride 20 mEq ER Tab PO ONE (09:30)
[2018-01-07] MEDS: Albuterol HFA 90 mcg/actuation (8 g) INH PRN ×2 (13:31→21:52)
[2018-01-08 05:45] LABS: BASO % 0.8 % (0.0-2.0); EOS # 0.2 K/uL (0.0-0.7); EOS % 3.3 % (0.0-4.0); HEMOGLOBIN 14.7 g/dL (12.0-16.0); LYMPH % 35.2 % (20.0-40.0); MEAN CELL VOLUME 101.9 fl (81.0-99.0); MEAN CORPUSCULAR HEMOGLOBIN 35.1 pg (27.0-31.0); MEAN CORPUSCULAR HGB CONC 34.4 g/dL (33.0-37.0); MEAN PLATELET VOLUME 8.3 fl (7.2-11.7); MONO # 0.7 K/uL (0.0-0.8); MONO % 13.1 % (0.0-10.0); NEUT # 2.7 K/uL (1.8-7.0); NEUT % 47.6 % (50.0-75.0); NRBC % 0.1 % (0.0-0.0); RBC 4.19 Mil/uL (3.80-5.20); RED CELL DISTRIBUTION WIDTH 13.1 % (11.5-14.5); WHITE BLOOD COUNT 5.6 K/uL (4.8-10.8)
[2018-01-08 05:58] LABS: ALB/GLOB RATIO 1.2 (1.0-2.1); ALBUMIN 3.7 g/dL (3.5-5.0); ALT/SGPT 45 U/L (9-52); AST/SGOT 34 U/L (14-36); BLOOD UREA NITROGEN 5 mg/dl (7-17); CALCIUM 9.4 mg/dL (8.4-10.2); GFR AFRICAN-AMERICAN > 60; GFR NON-AFRICAN AMERICAN > 60
[2018-01-08] MEDS: Albuterol HFA 90 mcg/actuation (8 g) INH PRN ×2 (06:11→23:00)
[2018-01-08] MEDS: Enoxaparin 40 mg Syringe SC SCH (08:10)
[2018-01-08] MEDS ORDERED: Potassium Chloride 20 mEq ER Tab PO ONE (08:25)
--- NOTE | 2018-01-08 08:27 | PQF GENQUE ---
This form is a permanent part of the medical record 01/08/18 Dr. Patterson, Documentation in the H&P under the PMH section Pulmonary: Hx: Asthma: Yes, Hx COPD: Yes. Medication includes Ventolin HFA prn. Please clarify the type of asthma if known. Clarification of your documentation is requested to better reflect the severity of illness and intensity of treatment of your patient. Indicators present PHYSICIAN'S RESPONSE Please clarify type of asthma if known Childhood Cough variant Exercise induced Late onset Mild intermittent Mild persistent Moderate persistent Severe persistent With bronchitis(please clarify acuity of bronchitis) With chronic lung disease (please document specific chronic lung disease) Other (please specify) Clinically unable to determine Unknown Based on your medical judgment of the clinical indicators outlined above please clarify the following: [] Practitioner response [] If unable to determine, please check the box, sign and date. Present On Admission (POA) Indicator: [] Present at the time of admission [] Not present at the time of admission [] Clinically Undetermined In responding to this query, please exercise your independent professional judgment. The fact that a question is asked does not imply that any particular answer is desired or expected. Thank you for your clarification on this documentation. If you have any questions please call:ext [phone] * Thank you, Esther Goff RN [facility]
--- NOTE | 2018-01-08 08:55 | CP.PCM.PN ---
Subjective - Date & Time of Evaluation Date of Evaluation: 01/08/18 Time of Evaluation: 07:25 - Subjective Subjective: Patient seen and examined bedside with Dr Patterson. Patient still reports lower back pain that persists despite of medications. She denies headache,dizziness, chest pain, SOB. Pending PT evaluation and pain management Objective - Vital Signs/Intake and Output Vital Signs (last 24 hours): Temp Pulse Resp BP Pulse Ox 97.9 F 82 20 126/87 95 01/08/18 08:15 01/08/18 08:15 01/08/18 08:15 01/08/18 08:15 01/08/18 08:15 - Medications Medications: Current Medications Acetaminophen (Tylenol 325mg Tab) 650 mg PO Q6 PRN PRN Reason: Pain, Mild (1-3) Acetaminophen (Tylenol 325mg Tab) 650 mg PO Q6 PRN PRN Reason: Fever >100.4 F Albuterol (Ventolin Hfa 90 Mcg/Actuation (8 G)) 2 puff INH QID PRN PRN Reason: wheezing Last Admin: 01/08/18 06:11 Dose: 2 puff Alprazolam (Xanax) 1 mg PO TID PRN PRN Reason: Anxiety Last Admin: 01/07/18 20:05 Dose: 1 mg Amlodipine Besylate (Norvasc) 10 mg PO DAILY [facility] Last Admin: 01/08/18 08:10 Dose: 10 mg Codeine Sulfate (Codeine) 30 mg PO Q6 PRN PRN Reason: Pain, moderate (4-7) Enoxaparin Sodium (Lovenox) 40 mg SC DAILY [facility] PRN Reason: Protocol Last Admin: 01/08/18 08:10 Dose: 40 mg Ketorolac Tromethamine (Toradol) 30 mg IVP Q6 PRN PRN Reason: Pain, moderate (4-7) Last Admin: 01/08/18 08:11 Dose: 30 mg Morphine Sulfate (Morphine) 2 mg IVP Q4 PRN PRN Reason: Pain, severe (8-10) Last Admin: 01/08/18 06:05 Dose: 2 mg Oxycodone HCl (Oxycontin Extended Release Tab) 20 mg PO Q12H PRN PRN Reason: Pain, severe (8-10) Last Admin: 01/07/18 20:54 Dose: 20 mg Zolpidem Tartrate (Ambien) 5 mg PO HS [facility] Last Admin: 01/08/18 00:06 Dose: 5 mg - Labs Labs: 01/08/18 04:40 01/08/18 04:40 - Constitutional Appears: Non-toxic, No Acute Distress - Head Exam Head Exam: ATRAUMATIC, NORMOCEPHALIC - Eye Exam Eye Exam: Normal appearance - ENT Exam ENT Exam: Mucous Membranes Moist - Respiratory Exam Respiratory Exam: Clear to Ausculation Bilateral. absent: Rales, Rhonchi, Wheezes - Cardiovascular Exam Cardiovascular Exam: REGULAR RHYTHM, +S1, +S2 - GI/Abdominal Exam GI & Abdominal Exam: Soft, Normal Bowel Sounds. absent: Tenderness - Extremities Exam Extremities Exam: Normal Inspection. absent: Pedal Edema Additional comments: lower back : left straight raise leg test + - Back Exam Back Exam: NORMAL INSPECTION, paraspinal tenderness - Neurological Exam Neurological Exam: Alert, Awake, Oriented x3 Neuro motor strength exam: Left Upper Extremity: 5, Right Upper Extremity: 5, Left Lower Extremity: 5, Right Lower Extremity: 5 - Psychiatric Exam Psychiatric exam: Normal Affect Assessment and Plan - Assessment and Plan (Free Text) Plan: Assessment/Plan 1) Chronic back pain -left sciatalgia associated -under pain management Dr Pineda -Pain management consult suggested 2) Hypokalemia -may be 2/2 vomiting 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
[2018-01-08] MEDS: oxyCODONE 20 mg ER Tab (oxyCONTIN) PO PRN (11:00)
--- NOTE | 2018-01-08 11:46 | CP.PCM.PN ---
Subjective - Date & Time of Evaluation Date of Evaluation: 01/08/18 Time of Evaluation: 11:30 - Subjective Subjective: Patient s/p multiple falls, possibly EtOH related, is referred for pain management. Patient is under the care of Dr. Pineda, who manages her pain and has been working up her recent dizzy spells. Her usual pain regimen include Oxycontin 20mg q12h, [place] 10/325mg, and Codeine 30mg. She has appt to see him tomorrow, but has enough medications left at home upon discharge. She had an especially hard fall two weeks ago onto her back. She also sustained bruises to the left arm due to "being stuck in the closet..." Objective - Vital Signs/Intake and Output Vital Signs (last 24 hours): Temp Pulse Resp BP Pulse Ox 97.9 F 75 20 126/87 95 01/08/18 08:15 01/08/18 09:00 01/08/18 08:15 01/08/18 08:15 01/08/18 08:15 - Medications Medications: Current Medications Acetaminophen (Tylenol 325mg Tab) 650 mg PO Q6 PRN PRN Reason: Pain, Mild (1-3) Acetaminophen (Tylenol 325mg Tab) 650 mg PO Q6 PRN PRN Reason: Fever >100.4 F Albuterol (Ventolin Hfa 90 Mcg/Actuation (8 G)) 2 puff INH QID PRN PRN Reason: wheezing Last Admin: 01/08/18 06:11 Dose: 2 puff Alprazolam (Xanax) 1 mg PO TID PRN PRN Reason: Anxiety Last Admin: 01/07/18 20:05 Dose: 1 mg Amlodipine Besylate (Norvasc) 10 mg PO DAILY [facility] Last Admin: 01/08/18 08:10 Dose: 10 mg Chlordiazepoxide (Librium) 10 mg PO Q8 [facility] Last Admin: 01/08/18 11:34 Dose: 10 mg Enoxaparin Sodium (Lovenox) 40 mg SC DAILY ASAF PRN Reason: Protocol Last Admin: 01/08/18 08:10 Dose: 40 mg Folic Acid (Folic Acid) 1 mg PO DAILY [facility] Gabapentin (Neurontin) 300 mg PO TID [facility] Ketorolac Tromethamine (Toradol) 30 mg IVP Q6 PRN PRN Reason: Pain, moderate (4-7) Last Admin: 01/08/18 08:11 Dose: 30 mg Oxycodone HCl (Oxycontin Extended Release Tab) 20 mg PO Q12 [facility] Thiamine HCl (Vitamin B1 Tab) 100 mg PO DAILY [facility] Zolpidem Tartrate (Ambien) 5 mg PO HS [facility] Last Admin: 01/08/18 00:06 Dose: 5 mg - Labs Labs: 01/08/18 04:40 01/08/18 04:40 Assessment and Plan - Assessment and Plan (Free Text) Assessment: 57 yo woman w/ chronic pain. - continue Oxycontin 20mg q12h - increase MS to 4mg q4h IV prn - d/c PO pain meds for breakthrough for now - add Neurontin to regimen - would obtain lumbar X-ray, patient had recent falls to the back - consider neurology consult for dizzy spells, patient was being worked up by own neurologist but most tests were denied by insurances - patient can return to home meds upon discharge
--- NOTE | 2018-01-08 13:01 | US ---
PROCEDURE: Ultrasound of the Kidneys HISTORY: Left lower quadrant pain COMPARISON: None available. TECHNIQUE: Grayscale imaging was performed. FINDINGS: RIGHT KIDNEY: Measures: 11.8 cm. Normal in size, contour and echogenicity. No stone, solid mass lesion or hydronephrosis visualized. LEFT KIDNEY: Measures: 11.4 cm. Normal in size, contour and echogenicity. No stone, solid mass lesion or hydronephrosis visualized. There is a 8 mm nonspecific echogenic area in the lower pole which may represent non shadowing calcification. There is a 9 x 10 x 8 mm cyst in the lower pole. OTHER FINDINGS: None. IMPRESSION: No hydronephrosis or nephrolithiasis.
--- NOTE | 2018-01-08 17:28 | RAD ---
PROCEDURE: Radiographs of the Lumbar Spine. HISTORY: Low back pain, fall COMPARISON: No prior. FINDINGS: BONES: There is degenerative 8 mm anterior listhesis of L4 on L5. There is normal lumbar lordosis. There is diffuse bone demineralization. There is no acute fracture. There is no spondylolysis. DISC SPACES: There is multilevel degenerative disc disease with mild reduced disc heights and multilevel facet arthropathy, worse at L4-5. OTHER FINDINGS: There is a catheter in the lumbar spine. There are no pathologic soft tissue calcifications. Both sacroiliac joints are normal. IMPRESSION: No acute fracture or spondylolysis. Multilevel degenerative disc disease, worse at L4-5 with degenerative grade 1 anterior listhesis of L4 on L5.
[2018-01-08] MEDS: oxyCODONE 20 mg ER Tab (oxyCONTIN) PO SCH (20:53)
[2018-01-09 06:56] LABS: BLOOD UREA NITROGEN 6 mg/dl (7-17); CALCIUM 9.8 mg/dL (8.4-10.2); GFR AFRICAN-AMERICAN > 60; GFR NON-AFRICAN AMERICAN > 60
--- NOTE | 2018-01-09 09:14 | CP.PCM.CON ---
History of Present Illness - History of Present Illness History of Present Illness: I was sked to evaluate patient by Dr Patterson. History of cerebral aneurysm, polysubstance abuse recent fall, admited with severe back pain and hyponatremia. The patient experienced severe pain of the back and also developed chest pain. Chest pain is worse with inspiration. Review of Systems - Constitutional Constitutional: absent: As Per HPI, Anorexia, Chills, Daytime Sleepiness, Excessive Sweating, Fatigue, Fever, Frequent Falls, Headache, Increased Appetite , Lethargy, Malaise, Night Sweats, Snoring, Sleep Apnea, Weight Gain, Weight Loss, Weakness, Other - EENT Eyes: absent: As Per HPI, Blind Spots, Blurred Vision, Change in Vision, Decreased Night Vision, Diplopia, Discharge, Dry Eye, Exophthalmos, Floaters, Irritation, Itchy Eyes, Loss of Peripheral Vision, Pain, Photophobia, Requires Corrective Lenses, Sees Flashes, Spots in Vision, Tunnel Vision, Other Visual Disturbances, Loss of Vision, Other Nose/Mouth/Throat: absent: As Per HPI, Epistaxis, Nasal Congestion, Nasal Discharge, Nasal Obstruction, Nasal Trauma, Nose Pain, Post Nasal Drip, Sinus Pain, Sinus Pressure, Bleeding Gums, Change in Voice, Dental Pain, Dry Mouth, Dysphagia, Halitosis, Hoarsness, Lip Swelling, Mouth Lesions, Mouth Pain, Odynophagia, Sore Throat, Throat Swelling, Tongue Swelling, Facial Pain, Neck Pain, Neck Mass, Other - Cardiovascular Cardiovascular: absent: As Per HPI, Acrocyanosis, Chest Pain, Chest Pain at Rest , Chest Pain with Activity, Claudication, Diaphoresis, Dyspnea, Dyspnea on Exertion, Edema, Irregular Heart Rhythm, Pain Radiating to Arm/Neck/Jaw, Leg Edema, Leg Ulcers, Lightheadedness, Orthopnea, Palpitations, Paroxysmal Nocturnal Dyspnea, Pedal Edema, Radiating Pain, Rapid Heart Rate, Slow Heart Rate, Syncope, Other - Gastrointestinal Gastrointestinal: absent: As Per HPI, Abdominal Pain, Belching, Bloating, Change in Bowel Habits, Change in Stool Character, Coffee Ground Emesis, Constipation, Cramping, Diarrhea, Dyspepsia, Dysphagia, Early Satiety, Excessive Flatus, Fecal Incontinence, Heartburn, Hematemesis, Hematochezia, Loose Stools, Melena, Nausea, Odynophagia, Temesmus, Vomiting, Other - Genitourinary Genitourinary: absent: As Per HPI, Change in Urinary Stream, Difficulty Urinating, Dysuria, Flank Pain, Hematuria, Pyuria, Nocturia, Urinary Incontinence, Urinary Frequency, Urinary Hesitance, Urinary Urgency, Voiding Freq/Small Amts, Freq UTI, Hx Renal/Bladder Calculi, Hx /Renal Surgery, Bladder Distension, Other - Musculoskeletal Musculoskeletal: absent: As Per HPI, Abnormal Gait, Arthralgias, Atrophy, Back Pain, Deformity, Joint Swelling, Limited Range of Motion, Loss of Height, Muscle Cramps, Muscle Weakness, Myalgias, Neck Pain, Numbness, Radiating Pain into Limb, Stiffness, Tingling, Other - Integumentary Integumentary: absent: As Per HPI, Acne, Alopecia, Bleeding Lesions, Change in Hair, Change in Nails, Change in Pigmentation, Changing Lesions, Dry Skin, Erythema, Furuncle, Hirsutism, Lesions, New Lesions, Non-Healing Lesions, Photosensitivity, Pruritus, Rash, Skin Pain, Skin Ulcer, Sores, Striae, Swelling , Unusual Bruising, Wounds, Jaundice, Other - Neurological Neurological: absent: As Per HPI, Abnormal Gait, Abnormal Hearing, Abnormal Movements, Abnormal Speech, Behavioral Changes, Burning Sensations, Confusion, Convulsions, Disequilibrium, Dizziness, Numbness, Focal Weakness, Frequent Falls , Headaches, Lack of Coordination, Loss of Vision, Memory Loss, Paresthesias, Radicular Pain, Restless Legs, Sensory Deficit, Syncope, Tingling, Tremor, Vertigo, Weakness, Other Visual Disturbances, Other - Psychiatric Psychiatric: absent: As Per HPI, Abnormal Sleep Pattern, Anhedonia, Anxiety, Auditory Hallucinations, Behavioral Changes, Change in Appetite, Change in Libido, Confusion, Depression, Difficulty Concentrating, Hallucinations, Homicidal Ideation, Hopelessness, Irritability, Memory Loss, Mood Swings, Panic Attacks, Paranoia, Suicidal Ideation, Visual Hallucinations, Tactile Hallucinations, Other - Endocrine Endocrine: absent: As Per HPI, Change in Body Appearance, Change in Libido, Cold Intolorance, Deepening of Voice, Excessive Sweating, Fatigue, Flushing, Heat Intolorance, Increase in Ring/Shoe/Hat Size, Palpitations, Polydipsia, Polyphagia, Polyuria, Other - Hematologic/Lymphatic Hematologic: absent: As Per HPI, Easy Bleeding, Easy Bruising, Lymphadenopathy, Other Past Patient History - Infectious Disease Hx of Infectious Diseases: None - Past Medical History & Family History Past Medical History?: Yes - Past Social History Smoking Status: Light Smoker < 10 Cigarettes Daily - CARDIAC Hx Hypertension: Yes - PULMONARY Hx Asthma: Yes Hx Chronic Obstructive Pulmonary Disease (COPD): Yes - NEUROLOGICAL Hx Neurological Disorder: Yes Other/Comment: 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" - HEENT Hx HEENT Problems: No - RENAL Hx Chronic Kidney Disease: No - ENDOCRINE/METABOLIC Hx Endocrine Disorders: No - HEMATOLOGICAL/ONCOLOGICAL Hx Human Immunodeficiency Virus (HIV): No - INTEGUMENTARY Hx Dermatological Problems: No - MUSCULOSKELETAL/RHEUMATOLOGICAL Hx Musculoskeletal Disorders: Yes Hx Back Pain: Yes Hx Falls: Yes - GASTROINTESTINAL Hx Gastrointestinal Disorders: Yes Hx Gastroesophageal Reflux: Yes Hx Irritable Bowel: Yes (WITH DIARRHEA) - GENITOURINARY/GYNECOLOGICAL Hx Genitourinary Disorders: No - PSYCHIATRIC Hx Anxiety: Yes - SURGICAL HISTORY Hx Surgeries: Yes Hx Section: Yes (x3) Hx Hysterectomy: Yes Other/Comment: BRAIN ANEURYSM REPAIRED x2, 1 OVARY RESECTION - ANESTHESIA Hx Anesthesia: Yes Hx Anesthesia Reactions: No Hx Malignant Hyperthermia: No Meds Allergies/Adverse Reactions: Allergies Allergy/AdvReac Type Severity Reaction Status Date / Time EGG Allergy RASH Verified 12/18/17 23:10 - Medications Medications: Current Medications Acetaminophen (Tylenol 325mg Tab) 650 mg PO Q6 PRN PRN Reason: Pain, Mild (1-3) Acetaminophen (Tylenol 325mg Tab) 650 mg PO Q6 PRN PRN Reason: Fever >100.4 F Albuterol (Ventolin Hfa 90 Mcg/Actuation (8 G)) 2 puff INH QID PRN PRN Reason: wheezing Last Admin: 01/08/18 23:00 Dose: 2 puff Alprazolam (Xanax) 1 mg PO TID PRN PRN Reason: Anxiety Last Admin: 01/09/18 00:22 Dose: 1 mg Amlodipine Besylate (Norvasc) 10 mg PO DAILY [facility] Last Admin: 01/08/18 08:10 Dose: 10 mg Chlordiazepoxide (Librium) 10 mg PO Q8 [facility] Last Admin: 01/09/18 00:22 Dose: Not Given Enoxaparin Sodium (Lovenox) 40 mg SC DAILY [facility] PRN Reason: Protocol Last Admin: 01/08/18 08:10 Dose: 40 mg Folic Acid (Folic Acid) 1 mg PO DAILY [facility] Last Admin: 01/08/18 12:45 Dose: 1 mg Gabapentin (Neurontin) 300 mg PO TID [facility] Last Admin: 01/08/18 17:40 Dose: 300 mg Ketorolac Tromethamine (Toradol) 30 mg IVP Q6 PRN PRN Reason: Pain, moderate (4-7) Last Admin: 01/08/18 08:11 Dose: 30 mg Morphine Sulfate (Morphine) 4 mg IVP Q4 PRN PRN Reason: Pain, severe (8-10) Last Admin: 01/09/18 06:20 Dose: 4 mg Nicotine (Nicoderm Cq) 1 patch TD DAILY [facility] Last Admin: 01/08/18 20:54 Dose: 1 patch Oxycodone HCl (Oxycontin Extended Release Tab) 20 mg PO Q12 [facility] Last Admin: 01/08/18 20:53 Dose: 20 mg Thiamine HCl (Vitamin B1 Tab) 100 mg PO DAILY [facility] Zolpidem Tartrate (Ambien) 5 mg PO HS [facility] Last Admin: 01/08/18 22:59 Dose: 5 mg Physical Exam - Constitutional Appears: Non-toxic - Head Exam Head Exam: NORMAL INSPECTION - Eye Exam Eye Exam: Normal appearance - ENT Exam ENT Exam: Mucous Membranes Moist - Neck Exam Neck exam: Positive for: Full Rom - Respiratory Exam Respiratory Exam: NORMAL BREATHING PATTERN - GI/Abdominal Exam GI & Abdominal Exam: Normal Bowel Sounds - Rectal Exam Rectal Exam: Deferred - Extremities Exam Extremities exam: Positive for: normal inspection - Back Exam Back exam: NORMAL INSPECTION - Neurological Exam Neurological exam: Alert - Psychiatric Exam Psychiatric exam: Normal Mood - Skin Skin Exam: Dry Results - Vital Signs Recent Vital Signs: Last Vital Signs Temp 97.9 F 01/09/18 08:05 Pulse 76 01/09/18 08:05 Resp 20 01/09/18 08:05 BP 123/84 01/09/18 08:05 Pulse Ox 93 L 01/09/18 08:05 - Labs Result Diagrams: 01/08/18 04:40 01/09/18 06:08 Labs: Laboratory Results - last 24 hr 01/09/18 06:08 Sodium 142 Potassium 3.5 L Chloride 103 Carbon Dioxide 27 Anion Gap 16 BUN 6 L Creatinine 0.6 L Est GFR ( Amer) > 60 Est GFR (Non-Af Amer) > 60 Random Glucose 100 Calcium 9.8 Magnesium 2.0 - EKG Data EKG Interpreted by: Myself EKG shows normal: Sinus rhythm Assessment & Plan (1) Chest pain Assessment and Plan: non cardiac. EKG no evidence of ischemia. recommend continued medical therapy and pain control. Status: Acute (2) Hypertension Assessment and Plan: medical therapy Status: Chronic Priority: Medium
[2018-01-09] MEDS: oxyCODONE 20 mg ER Tab (oxyCONTIN) PO SCH ×2 (09:22→21:52)
[2018-01-09] MEDS: Enoxaparin 40 mg Syringe SC SCH (09:23)
[2018-01-09] MEDS: Albuterol HFA 90 mcg/actuation (8 g) INH PRN (13:35)
[2018-01-10] MEDS: Morphine 4 MG/ML VIAL IVP PRN ×3 (05:10→13:02)
[2018-01-10 08:15] VITALS: RESP 20; TEMP 98.1
[2018-01-10] MEDS: Enoxaparin 40 mg Syringe SC SCH (09:02)
[2018-01-10] MEDS: oxyCODONE 20 mg ER Tab (oxyCONTIN) PO SCH (09:02)
[2018-01-10 12:08] VITALS: BP 120/85; PULSE 78; O2SAT 93
--- NOTE | 2018-01-10 14:16 | CP.PCM.PN ---
Subjective - Date & Time of Evaluation Date of Evaluation: 01/09/18 Time of Evaluation: 15:00 - Subjective Subjective: Patient is doing a lot better. Still awaiting for labs No chest pain or SOB. Noted slightly elevated BP Objective - Vital Signs/Intake and Output Vital Signs (last 24 hours): Temp Pulse Resp BP Pulse Ox 98.1 F 78 20 120/85 93 L 01/10/18 12:08 01/10/18 12:08 01/10/18 12:08 01/10/18 12:08 01/10/18 12:08 - Medications Medications: Current Medications Acetaminophen (Tylenol 325mg Tab) 650 mg PO Q6 PRN PRN Reason: Pain, Mild (1-3) Acetaminophen (Tylenol 325mg Tab) 650 mg PO Q6 PRN PRN Reason: Fever >100.4 F Albuterol (Ventolin Hfa 90 Mcg/Actuation (8 G)) 2 puff INH QID PRN PRN Reason: wheezing Last Admin: 01/09/18 13:35 Dose: 2 puff Alprazolam (Xanax) 1 mg PO TID PRN PRN Reason: Anxiety Last Admin: 01/10/18 05:51 Dose: 1 mg Amlodipine Besylate (Norvasc) 10 mg PO DAILY [facility] Last Admin: 01/10/18 09:00 Dose: 10 mg Chlordiazepoxide (Librium) 10 mg PO Q8 [facility] Last Admin: 01/10/18 09:02 Dose: 10 mg Folic Acid (Folic Acid) 1 mg PO DAILY [facility] Last Admin: 01/10/18 09:01 Dose: 1 mg Gabapentin (Neurontin) 300 mg PO TID [facility] Last Admin: 01/10/18 13:02 Dose: 300 mg Ketorolac Tromethamine (Toradol) 30 mg IVP Q6 PRN PRN Reason: Pain, moderate (4-7) Last Admin: 01/09/18 17:56 Dose: 30 mg Morphine Sulfate (Morphine) 4 mg IVP Q4 PRN PRN Reason: Pain, severe (8-10) Last Admin: 01/10/18 13:02 Dose: 4 mg Nicotine (Nicoderm Cq) 1 patch TD DAILY [facility] Last Admin: 01/10/18 08:57 Dose: 1 patch Oxycodone HCl (Oxycontin Extended Release Tab) 20 mg PO Q12 [facility] Last Admin: 01/10/18 09:02 Dose: 20 mg Thiamine HCl (Vitamin B1 Tab) 100 mg PO DAILY [facility] Last Admin: 01/10/18 09:02 Dose: 100 mg Zolpidem Tartrate (Ambien) 5 mg PO HS [facility] Last Admin: 01/09/18 22:52 Dose: 5 mg - Labs Labs: 01/08/18 04:40 01/09/18 06:08 - Head Exam Head Exam: NORMAL INSPECTION - Eye Exam Eye Exam: Normal appearance - Respiratory Exam Respiratory Exam: Clear to Ausculation Bilateral - Cardiovascular Exam Cardiovascular Exam: REGULAR RHYTHM - GI/Abdominal Exam GI & Abdominal Exam: Normal Bowel Sounds Assessment and Plan (1) Chronic pain Status: Acute (2) Hyponatremia Status: Acute - Assessment and Plan (Free Text) Plan: Cont meds amlodipine follow up labs' DC plan for AM.
--- NOTE | 2018-01-10 14:20 | CP.PCM.DIS ---
Provider - Provider Date of Admission: 01/07/18 02:53 Attending physician: Deny Patterson MD Primary care physician: Kiran Krishnan MD Time Spent in preparation of Discharge (in minutes): 30 Diagnosis - Discharge Diagnosis (1) Chronic pain Status: Acute (2) Hyponatremia Status: Acute Hospital Course - Lab Results Lab Results: Most Recent Lab Values WBC 5.6 K/uL (4.8-10.8) 01/08/18 04:40 RBC 4.19 Mil/uL (3.80-5.20) 01/08/18 04:40 Hgb 14.7 g/dL (12.0-16.0) 01/08/18 04:40 Hct 42.7 % (34.0-47.0) 01/08/18 04:40 MCV 101.9 fl (81.0-99.0) H 01/08/18 04:40 MCH 35.1 pg (27.0-31.0) H 01/08/18 04:40 MCHC 34.4 g/dL (33.0-37.0) 01/08/18 04:40 RDW 13.1 % (11.5-14.5) 01/08/18 04:40 Plt Count 202 K/uL (130-400) 01/08/18 04:40 MPV 8.3 fl (7.2-11.7) 01/08/18 04:40 Neut % (Auto) 47.6 % (50.0-75.0) L 01/08/18 04:40 Lymph % (Auto) 35.2 % (20.0-40.0) 01/08/18 04:40 [place] % (Auto) 13.1 % (0.0-10.0) H 01/08/18 04:40 Eos % (Auto) 3.3 % (0.0-4.0) 01/08/18 04:40 Baso % (Auto) 0.8 % (0.0-2.0) 01/08/18 04:40 Neut # (Auto) 2.7 K/uL (1.8-7.0) 01/08/18 04:40 Lymph # (Auto) 2.0 K/uL (1.0-4.3) 01/08/18 04:40 [place] # (Auto) 0.7 K/uL (0.0-0.8) 01/08/18 04:40 Eos # (Auto) 0.2 K/uL (0.0-0.7) 01/08/18 04:40 Baso # (Auto) 0.0 K/uL (0.0-0.2) 01/08/18 04:40 Sodium 142 mmol/l (132-148) 01/09/18 06:08 Potassium 3.5 MMOL/L (3.6-5.0) L 01/09/18 06:08 Chloride 103 mmol/L (98-107) 01/09/18 06:08 Carbon Dioxide 27 mmol/L (22-30) 01/09/18 06:08 Anion Gap 16 (10-20) 01/09/18 06:08 BUN 6 mg/dl (7-17) L 01/09/18 06:08 Creatinine 0.6 mg/dl (0.7-1.2) L 01/09/18 06:08 Est GFR ( Amer) > 60 01/09/18 06:08 Est GFR (Non-Af Amer) > 60 01/09/18 06:08 Random Glucose 100 mg/dL (65-105) 01/09/18 06:08 Calcium 9.8 mg/dL (8.4-10.2) 01/09/18 06:08 Magnesium 2.0 MG/DL (1.6-2.3) 01/09/18 06:08 Total Bilirubin 0.8 mg/dl (0.2-1.3) 01/08/18 04:40 AST 34 U/L (14-36) 01/08/18 04:40 ALT 45 U/L (9-52) 01/08/18 04:40 Alkaline Phosphatase 97 U/L (38-126) 01/08/18 04:40 Total Protein 6.6 G/DL (6.3-8.2) 01/08/18 04:40 Albumin 3.7 g/dL (3.5-5.0) 01/08/18 04:40 Globulin 3.0 gm/dL (2.2-3.9) 01/08/18 04:40 Albumin/Globulin Ratio 1.2 (1.0-2.1) 01/08/18 04:40 Triglycerides 57 mg/DL (0-149) D 01/07/18 07:44 Cholesterol 189 mg/dL (0-199) 01/07/18 07:44 LDL Cholesterol Direct 95 mg/dL (0-129) 01/07/18 07:44 HDL Cholesterol 80 MG/DL (30-70) H 01/07/18 07:44 Vitamin B12 518 pg/mL (239-931) 01/07/18 07:44 Thyroxine (T4) 6.36 ug/dl (5.5-11.0) 01/07/18 07:44 Total T3 1.08 nmol/L (1.49-2.60) L 01/07/18 07:44 TSH 3rd Generation 3.64 mIU/ML (0.46-4.68) 01/07/18 07:44 Urine Color Straw (YELLOW) 01/07/18 02:15 Urine Clarity Slighty-cloudy (Clear) 01/07/18 02:15 Urine pH 6.0 (5.0-8.0) 01/07/18 02:15 Ur Specific [place] < 1.005 (1.003-1.030) 01/07/18 02:15 Urine Protein Negative mg/dL (NEGATIVE) 01/07/18 02:15 Urine Glucose (UA) Neg mg/dL (Normal) 01/07/18 02:15 Urine Ketones Negative mg/dL (NEGATIVE) 01/07/18 02:15 Urine Blood Negative (NEGATIVE) 01/07/18 02:15 Urine Nitrate Negative (NEGATIVE) 01/07/18 02:15 Urine Bilirubin Negative (NEGATIVE) 01/07/18 02:15 Urine Urobilinogen 0.2-1.0 mg/dL (0.2-1.0) 01/07/18 02:15 Ur Leukocyte Esterase Neg Rach/uL (Negative) 01/07/18 02:15 Urine RBC (Auto) 2 /hpf (0-3) 01/07/18 02:15 Urine Microscopic WBC 1 /hpf (0-5) 01/07/18 02:15 Ur Squamous Epith Cells 3 /hpf (0-5) 01/07/18 02:15 Urine Bacteria Occ (<OCC) H 01/07/18 02:15 Urine Opiates Screen Positive (NEGATIVE) H 01/07/18 02:15 Urine Methadone Screen Negative (NEGATIVE) 01/07/18 02:15 Ur Barbiturates Screen Negative (NEGATIVE) 01/07/18 02:15 Ur Phencyclidine Scrn Negative (NEGATIVE) 01/07/18 02:15 Ur Amphetamines Screen Negative (NEGATIVE) 01/07/18 02:15 U Benzodiazepines Scrn Positive (NEGATIVE) 01/07/18 02:15 U Oth Cocaine Metabols Negative (NEGATIVE) 01/07/18 02:15 U Cannabinoids Screen Negative (NEGATIVE) 01/07/18 02:15 Alcohol, Quantitative 18 mg/dl (0-10) H 01/07/18 02:11 - Hospital Course Hospital Course: This is a 57 y/o female admitted for recurrent back pain and noted to have hyponatremia. She was admitted to telemetry. She was started on liberal salt and saline IV Repeat labs on the 3rd day showed improvement to normal sodium levels. She was given pain medications as she has been maintained outside through a pain management for chronic back pain.l She was discharged in stable condition and was advised to follow up with her PMD. No prescriptions were given to her as she has all home meds available at home She was advised to follow up with Dr Miriam person pain medication refill. Discharge Exam - Head Exam Head Exam: NORMAL INSPECTION - Eye Exam Eye Exam: Normal appearance - Respiratory Exam Respiratory Exam: NORMAL BREATHING PATTERN - Cardiovascular Exam Cardiovascular Exam: REGULAR RHYTHM - GI/Abdominal Exam GI & Abdominal Exam: Normal Bowel Sounds - Neurological Exam Neurological exam: CN II-XII Intact, Oriented x3 - Psychiatric Exam Psychiatric exam: Normal Mood Discharge Plan - Follow Up Plan Condition: FAIR Disposition: HOME/ ROUTINE Additional Instructions: advised follow up with DR Pineda. naya pain mgt follow up with PMD re BP meds., Referrals: Kiran Krishnan MD [Primary Care Provider] -
== END 2018-01-10 15:30 | disposition home or self-care (01) | DRG 296 ==
LOC: H.ER 00:30 → H.ERHOLD 02:53 → H.TEL 05:35
PROVIDERS: ADMIT Internal Medicine; ATTEND Internal Medicine
DX: E87.1 Hypo-osmolality and hyponatremia (principal); J44.9 Chronic obstructive pulmonary disease, unspecified; E87.6 Hypokalemia; G89.29 Other chronic pain; I10 Essential (primary) hypertension; Z86.79 Personal history of other diseases of the circulatory system; K21.9 Gastro-esophageal reflux disease without esophagitis; K58.9 Irritable bowel syndrome, unspecified; Z87.891 Personal history of nicotine dependence; Z90.710 Acquired absence of both cervix and uterus; Z91.81 History of falling; F41.9 Anxiety disorder, unspecified; F45.9 Somatoform disorder, unspecified; R29.6 Repeated falls; Z79.899 Other long term (current) drug therapy; M54.5 Low back pain; R07.9 Chest pain, unspecified; J45.909 Unspecified asthma, uncomplicated; S20.229A Contusion of unspecified back wall of thorax, initial encounter; W19.XXXA Unspecified fall, initial encounter; Y93.9 Activity, unspecified; Y92.9 Unspecified place or not applicable

== ENCOUNTER 2018-01-27 22:14 | Inpatient (IN) | payer MEDICAID ==
[2018-01-27 22:17] VITALS: BMI 21.6
[2018-01-27] MEDS ORDERED: Sodium Chloride 0.9% 1,000 ML IV STA (23:21)
[2018-01-27] MEDS ORDERED: Albuterol 0.083% Inhal Sol (2.5 mg/3 mL) UD INH ONE (23:21)
[2018-01-27] MEDS ORDERED: Albuterol 0.083% Inhal Sol (2.5 mg/3 mL) UD ONE (23:30)
[2018-01-27] MEDS ORDERED: Morphine 4 MG/ML VIAL ONE (23:51)
[2018-01-28 00:23] LABS: BASO # 0.1 K/uL (0.0-0.2); BASO % 1.1 % (0.0-2.0); EOS # 0.4 K/uL (0.0-0.7); EOS % 3.8 % (0.0-4.0); HEMOGLOBIN 14.9 g/dL (12.0-16.0); LYMPH # 2.1 K/uL (1.0-4.3); LYMPH % 20.7 % (20.0-40.0); MEAN CORPUSCULAR HEMOGLOBIN 35.2 pg (27.0-31.0); MEAN CORPUSCULAR HGB CONC 34.8 g/dL (33.0-37.0); MEAN PLATELET VOLUME 8.6 fl (7.2-11.7); MONO # 0.9 K/uL (0.0-0.8); MONO % 8.5 % (0.0-10.0); NEUT # 6.7 K/uL (1.8-7.0); NEUT % 65.9 % (50.0-75.0); RBC 4.22 Mil/uL (3.80-5.20); RED CELL DISTRIBUTION WIDTH 13.1 % (11.5-14.5); WHITE BLOOD COUNT 10.2 K/uL (4.8-10.8)
[2018-01-28 00:41] LABS: ALB/GLOB RATIO 1.5 (1.0-2.1); ALBUMIN 4.3 g/dL (3.5-5.0); ALT/SGPT 38 U/L (9-52); AST/SGOT 47 U/L (14-36); BLOOD UREA NITROGEN 4 mg/dl (7-17); CALCIUM 9.6 mg/dL (8.4-10.2); GFR AFRICAN-AMERICAN > 60; GFR NON-AFRICAN AMERICAN > 60
[2018-01-28] MEDS ORDERED: Potassium Chloride 20 mEq ER Tab PO ONE ×2 (00:46→01:11)
--- NOTE | 2018-01-28 00:48 | ED PDOC ---
HPI: Abdomen Time Seen by Provider: 01/27/18 22:15 Chief Complaint (Nursing): GI Problem Chief Complaint (Provider): chronic pain History Per: Patient History/Exam Limitations: no limitations Onset/Duration Of Symptoms: Days (chronic, worsening today) Current Symptoms Are (Timing): Still Present Additional History Per: EMS Additional Complaint(s): 57 year old female with a pmhx of asthma, copd, and chronic pain presents to the emergency department via EMS complaining of chronic generalized back pain associated with worsening symptoms of nausea and vomiting onset today. Patient denies a fever. PMD: none provided Past Medical History Reviewed: Historical Data, Nursing Documentation, Vital Signs Vital Signs: Last Vital Signs Temp 97.4 F L 01/31/18 16:26 Pulse 73 01/31/18 16:26 Resp 18 01/31/18 16:26 BP 119/81 01/31/18 16:26 Pulse Ox 96 01/31/18 16:26 - Medical History PMH: Anxiety, Asthma, COPD, HTN, Chronic Pain (back pain) Denies: HIV, Chronic Kidney Disease - Surgical History Surgical History: - Family History Family History: States: CAD - Social History Current smoker - smoking cessation education provided: Yes Alcohol: Occasional Drugs: Denies - Immunization History Hx Tetanus Toxoid Vaccination: No Hx Influenza Vaccination: No Hx Pneumococcal Vaccination: No - Home Medications Home Medications: Ambulatory Orders Medication Instructions Recorded Alprazolam [Xanax] 1 mg PO TID PRN 07/09/14 Hydrocodone/Acetaminophen [Vicodin 1 tab PO QID PRN 07/09/14 Hp 10-300 mg Tablet] Oxycodone HCl [Oxycontin] 20 mg PO Q12H PRN 11/29/15 Theophylline [Gideon-Dur] 200 mg PO BID 11/29/15 Zolpidem [Ambien] 10 mg PO HS 11/29/15 Albuterol HFA [Ventolin HFA 90 2 puff INH QID PRN 12/04/16 mcg/actuation (8 g)] Codeine [Codeine] 30 mg PO Q6 PRN 01/07/18 amLODIPine [Norvasc] 10 mg PO DAILY 01/07/18 - Allergies Allergies/Adverse Reactions: Allergies Allergy/AdvReac Type Severity Reaction Status Date / Time No Known Allergies Allergy Verified 01/28/18 05:32 Review of Systems ROS Statement: Except As Marked, All Systems Reviewed And Found Negative Constitutional: Negative for: Fever Gastrointestinal: Positive for: Nausea, Vomiting Musculoskeletal: Positive for: Back Pain (generalized) Physical Exam - Reviewed Nursing Documentation Reviewed: Yes Vital Signs Reviewed: Yes - Physical Exam Appears: Positive for: In Acute Distress (moaning in pain) Head Exam: Positive for: ATRAUMATIC, NORMOCEPHALIC Skin: Positive for: Normal Color, Warm, Dry Eye Exam: Positive for: Normal appearance Neck: Positive for: Normal, Supple Cardiovascular/Chest: Positive for: Regular Rate, Rhythm. Negative for: Murmur Respiratory: Positive for: Wheezing (slight bilaterally) Gastrointestinal/Abdominal: Positive for: Normal Exam, Soft. Negative for: Tenderness Back: Positive for: Normal Inspection. Negative for: L CVA Tenderness, R CVA Tenderness, Vertebral Tenderness Extremity: Positive for: Normal ROM. Negative for: Pedal Edema, Calf Tenderness Neurologic/Psych: Positive for: Alert, Oriented (x3). Negative for: Motor/ Sensory Deficits - Laboratory Results Result Diagrams: 01/31/18 06:20 01/31/18 06:20 - ECG O2 Sat by Pulse Oximetry: 95 (RA) Pulse Ox Interpretation: Normal Medical Decision Making Medical Decision Making: Initial Impression: chronic pain Time: 23:21 Initial Plan: --CMP --CBC with differential --Albuterol 0.083% 2.5mg INH --Sodium chloride 0.9% 1000ml IV --Zofran 4mg PO --Peak flow pre/post --UA --Urine culture --Potassium chloride 20meq PO 23:49 Patient was requesting pain medication. Morphine 4mg IV will be administered. 00:00 Upon reevaluation after Morphine, patient was still moaning in pain. Case discussed with Dr. Patterson who wants to keep patient overnight. 00:46 Potassium levels are low and will be repleted Scribe Attestation: Documented by Yumi Linares, acting as a scribe for Vera Daigle MD. Provider Scribe Attestation: All medical entries made by the Scribe were at my direction and personally dictated by me. I have reviewed the chart and agree that the record accurately reflects my personal performance of the history, physical exam, medical decision making, and the department course for this patient. I have also personally directed, reviewed, and agree with the discharge instructions and disposition. Clinical Impression: Disposition - Clinical Impression Clinical Impression: Acute exacerbation of chronic low back pain - Patient ED Disposition Is Patient to be Admitted: Yes - Disposition Disposition Time: 23:55 Condition: STABLE
[2018-01-28 00:53] LABS: SQUAMOUS EPITHIAL < 1 /hpf (0-5); URINE BILIRUBIN NEGATIVE (NEGATIVE); URINE BLOOD NEGATIVE (NEGATIVE); URINE CLARITY CLEAR (Clear); URINE COLOR COLORLESS (YELLOW); URINE GLUCOSE (UA) NEG (Normal); URINE LEUKOCYTE ESTERASE NEG Leu/uL (Negative); URINE PROTEIN NEGATIVE (NEGATIVE); URINE UROBILINOGEN 0.2-1.0 mg/dL (0.2-1.0)
[2018-01-28] MEDS ORDERED: Albuterol HFA 90 mcg/actuation (8 g) INH PRN (04:27)
[2018-01-28 07:33] LABS: BLOOD UREA NITROGEN 5 mg/dl (7-17); CALCIUM 9.1 mg/dL (8.4-10.2); GFR AFRICAN-AMERICAN > 60; GFR NON-AFRICAN AMERICAN > 60
[2018-01-28] MEDS: oxyCODONE 20 mg ER Tab (oxyCONTIN) PO PRN ×2 (08:27→21:03)
[2018-01-28] MEDS: Enoxaparin 40 mg Syringe SC SCH (08:29)
--- NOTE | 2018-01-28 08:52 | CP.PCM.CON ---
History of Present Illness - History of Present Illness History of Present Illness: Psychiatry consult note CC: "I'm in pain." HPI: 57 y/o woman w/ pmh of IBS (diarrhea), COPD, HTN, s/p craniotomy w/ thigh muscle graft for cerebral aneurysm presented to ED w/ acute on chronic back pain. Patient reports that she feels depressed due to her chronic back pain. She denies feeling acutely anxious, but reports that she intermittent feelings of anxiety and has been taking Xanax for several years. NO AH/VH/paranoia/ delusions/SI/HI/wilbert/obsessions/compulsions. Internal Audit Director informed patient about the dangers of [facility] benzo use and that Xanax taken w/ opiate pain medications can have severe adverse effects including increased risk of confusion, respiratory depression and . Patient was offered treatment with an antidepressant, such as Cymbalta, but she states that she does not want to change her medications at this time. PPH: No current psychiatric treatment; h/o suicide attempt by cutting her wrist >30 years ago; denies h/o psychiatric hospitalizations PMD: Dr. Krishnan PMH: IBS (diarrhea), COPD, HTN, s/p craniotomy w/ thigh muscle graft for cerebral aneurysm Allergies: NKDA PSH: x3, craniotomy w/ thigh muscle graft FH: Mother stomach and lung cancer, father lung cancer, grandmother lung cancer , aunt lung cancer SOC: Lives w/ daughter in [place], used to work as a speech therapist, now unemployed; smokes 1/2 pack/day for 42 years, denies alcohol and drugs MSE: A + O x 3, calm, cooperative, no acute distress, speech normal, mood- "depressed", affect- broad, thought process- coherent/organized, thought content - no delusions, no AH/VH/SI/HI; fair I/J Impression: 57 yo female w/ chronic pain and intermittent feelings of depression and anxiety. Dx: Adjustment Disorder w/ mixed anxiety and depression Recommendations: -Would recommend to taper and stop Xanax due to risks when taken with opiate pain medications -Would recommend treatment with Cymbalta, but patient is not agreeable at this time -No acute inpatient psychiatric admission indicated at this time 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 - HEENT Hx HEENT Problems: Yes Other/Comment: patient wears glasses - RENAL Hx Chronic Kidney Disease: No - ENDOCRINE/METABOLIC Hx Endocrine Disorders: No - HEMATOLOGICAL/ONCOLOGICAL Hx Blood Disorders: No Hx Human Immunodeficiency Virus (HIV): No - INTEGUMENTARY Hx Dermatological Problems: No - MUSCULOSKELETAL/RHEUMATOLOGICAL Hx Musculoskeletal Disorders: Yes Hx Back Pain: Yes (chronic) Hx Falls: No - GASTROINTESTINAL Hx Gastrointestinal Disorders: Yes Hx Gastroesophageal Reflux: Yes Hx Irritable Bowel: Yes (WITH DIARRHEA) - GENITOURINARY/GYNECOLOGICAL Hx Genitourinary Disorders: No - PSYCHIATRIC Hx Psychophysiologic Disorder: Yes Hx Anxiety: Yes Hx Substance Use: No - SURGICAL HISTORY Hx Surgeries: Yes Hx Section: Yes (x3) Hx Hysterectomy: Yes Other/Comment: BRAIN ANEURYSM REPAIRED x2, 1 OVARY RESECTION - ANESTHESIA Hx Anesthesia: Yes Hx Anesthesia Reactions: No Hx Malignant Hyperthermia: No Meds Allergies/Adverse Reactions: Allergies Allergy/AdvReac Type Severity Reaction Status Date / Time No Known Allergies Allergy Verified 01/28/18 05:32 - Medications Medications: Current Medications Albuterol (Ventolin Hfa 90 Mcg/Actuation (8 G)) 2 puff INH QID PRN PRN Reason: wheezing Alprazolam (Xanax) 1 mg PO TID PRN PRN Reason: Anxiety Amlodipine Besylate (Norvasc) 10 mg PO DAILY [facility] Last Admin: 01/28/18 08:29 Dose: 10 mg Codeine Sulfate (Codeine) 30 mg PO Q6 PRN PRN Reason: Pain, moderate (4-7) Enoxaparin Sodium (Lovenox) 40 mg SC DAILY [facility] PRN Reason: Protocol Last Admin: 01/28/18 08:29 Dose: 40 mg Oxycodone HCl (Oxycontin Extended Release Tab) 20 mg PO Q12H PRN PRN Reason: Pain, severe (8-10) Last Admin: 01/28/18 08:27 Dose: 20 mg Theophylline (Gideon-24) 200 mg PO BID [facility] Zolpidem Tartrate (Ambien) 10 mg PO HS [facility] Results - Vital Signs Recent Vital Signs: Last Vital Signs Temp 98.1 F 01/28/18 08:01 Pulse 79 01/28/18 08:29 Resp 18 01/28/18 08:01 BP 108/69 01/28/18 08:29 Pulse Ox 93 L 01/28/18 08:01 - Labs Result Diagrams: 01/27/18 23:50 01/28/18 06:35 Labs: Laboratory Results - last 24 hr 01/27/18 01/27/18 01/28/18 23:50 23:50 00:18 WBC 10.2 D RBC 4.22 Hgb 14.9 Hct 42.7 MCV 101.0 H MCH 35.2 H MCHC 34.8 RDW 13.1 Plt Count 209 MPV 8.6 Neut % (Auto) 65.9 Lymph % (Auto) 20.7 [place] % (Auto) 8.5 Eos % (Auto) 3.8 Baso % (Auto) 1.1 Neut # (Auto) 6.7 Lymph # (Auto) 2.1 [place] # (Auto) 0.9 H Eos # (Auto) 0.4 Baso # (Auto) 0.1 Sodium 130 L Potassium 2.6 L Chloride 91 L Carbon Dioxide 23 Anion Gap 19 BUN 4 L Creatinine 0.5 L Est GFR ( Amer) > 60 Est GFR (Non-Af Amer) > 60 Random Glucose 85 Calcium 9.6 Total Bilirubin 1.0 AST 47 H D ALT 38 Alkaline Phosphatase 78 Total Protein 7.2 Albumin 4.3 Globulin 2.9 Albumin/Globulin Ratio 1.5 Urine Color Urine Clarity Urine pH Ur Specific [place] Urine Protein Urine Glucose (UA) Urine Ketones Urine Blood Urine Nitrate Urine Bilirubin Urine Urobilinogen Ur Leukocyte Esterase Urine RBC (Auto) Urine Microscopic WBC Ur Squamous Epith Cells Alcohol, Quantitative 27 H 01/28/18 01/28/18 00:44 06:35 WBC RBC Hgb Hct MCV MCH MCHC RDW Plt Count MPV Neut % (Auto) Lymph % (Auto) [place] % (Auto) Eos % (Auto) Baso % (Auto) Neut # (Auto) Lymph # (Auto) [place] # (Auto) Eos # (Auto) Baso # (Auto) Sodium 139 Potassium 3.4 L Chloride 103 Carbon Dioxide 30 Anion Gap 9 L BUN 5 L Creatinine 0.4 L Est GFR ( Amer) > 60 Est GFR (Non-Af Amer) > 60 Random Glucose 93 Calcium 9.1 Total Bilirubin AST ALT Alkaline Phosphatase Total Protein Albumin Globulin Albumin/Globulin Ratio Urine Color Colorless Urine Clarity Clear Urine pH 7.0 Ur Specific [place] < 1.005 Urine Protein Negative Urine Glucose (UA) Neg Urine Ketones Negative Urine Blood Negative Urine Nitrate Negative Urine Bilirubin Negative Urine Urobilinogen 0.2-1.0 Ur Leukocyte Esterase Neg Urine RBC (Auto) < 1 Urine Microscopic WBC < 1 Ur Squamous Epith Cells < 1 Alcohol, Quantitative
[2018-01-28] MEDS ORDERED: THEOPHYLLINE 200 MG PO SCH (09:00)
[2018-01-28] MEDS ORDERED: Theophylline 200mg ER 24 hrs Cap PO SCH (09:00)
--- NOTE | 2018-01-28 09:58 | CP.PCM.CON ---
History of Present Illness - History of Present Illness History of Present Illness: Orthopedic consult Patient is a 57 y/o female with PMH of COPD, HTN, IBS and chronic back pain c/o severe lumbar pain radiating to both legs. Dr. Champion was consulted for orthopedic evaluation. Patient describes falling backwards in the shower at home one month ago. She injured her back and head, presented to [facility], was evaluated and treated for her acute and discharged home stable. The patient takes pain medications and is followed by a apprentice painter brush for chronic back issues prior to her recent injury. She notes that her usual pain medication dosage was decreased recently. Her lower back pain has progressively worsened over the past few days with no instance of injury. The pain is sharp, and constant, located in her lower back region, predominanlty the left side. The pain radiates down both legs, left greater than right. She admits to occasional numbness and tingling to both LE, worse in the left. The pain is worse with walking and climbing stairs and is alleviated with rest. She denies any bowel or bladder incontinence, as well as saddle paresthesias. She denies CP/SOB/N/V/D/fever/dysuria/melena. She admits to abdominal discomfort similar to her IBS complaints. Review of Systems - Review of Systems All systems: reviewed and no additional remarkable complaints except Review of Systems: as per HPI Past Patient History - Infectious Disease Hx of Infectious Diseases: None - Past Medical History & Family History Past Medical History?: Yes - Past Social History Smoking Status: Heavy Smoker > 10 Cigarettes Daily (x40yrs) Alcohol: > 2 Drinks/Day Drugs: Opiates, Prescription medications - CARDIAC Hx Cardiac Disorders: Yes Hx Hypertension: Yes - PULMONARY Hx Respiratory Disorders: Yes Hx Asthma: Yes Hx Chronic Obstructive Pulmonary Disease (COPD): Yes - NEUROLOGICAL Hx Neurological Disorder: Yes Other/Comment: 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, s/p craniotomy with infection complications - HEENT Hx HEENT Problems: Yes Other/Comment: patient wears glasses - RENAL Hx Chronic Kidney Disease: No - ENDOCRINE/METABOLIC Hx Endocrine Disorders: No - HEMATOLOGICAL/ONCOLOGICAL Hx Blood Disorders: No Hx Human Immunodeficiency Virus (HIV): No - INTEGUMENTARY Hx Dermatological Problems: No - MUSCULOSKELETAL/RHEUMATOLOGICAL Hx Musculoskeletal Disorders: Yes Hx Back Pain: Yes (chronic) Hx Falls: No - GASTROINTESTINAL Hx Gastrointestinal Disorders: Yes Hx Gastroesophageal Reflux: Yes Hx Irritable Bowel: Yes (WITH DIARRHEA) - GENITOURINARY/GYNECOLOGICAL Hx Genitourinary Disorders: No - PSYCHIATRIC Hx Psychophysiologic Disorder: Yes Hx Anxiety: Yes - SURGICAL HISTORY Hx Surgeries: Yes Hx Section: Yes (x3) Hx Hysterectomy: Yes Other/Comment: BRAIN ANEURYSM REPAIRED x2, 1 OVARY RESECTION - ANESTHESIA Hx Anesthesia: Yes Hx Anesthesia Reactions: No Hx Malignant Hyperthermia: No Meds Allergies/Adverse Reactions: Allergies Allergy/AdvReac Type Severity Reaction Status Date / Time No Known Allergies Allergy Verified 01/28/18 05:32 - Medications Medications: Current Medications Albuterol (Ventolin Hfa 90 Mcg/Actuation (8 G)) 2 puff INH QID PRN PRN Reason: wheezing Alprazolam (Xanax) 1 mg PO TID PRN PRN Reason: Anxiety Amlodipine Besylate (Norvasc) 10 mg PO DAILY [facility] Last Admin: 01/28/18 08:29 Dose: 10 mg Codeine Sulfate (Codeine) 30 mg PO Q6 PRN PRN Reason: Pain, moderate (4-7) Enoxaparin Sodium (Lovenox) 40 mg SC DAILY [facility] PRN Reason: Protocol Last Admin: 01/28/18 08:29 Dose: 40 mg Oxycodone HCl (Oxycontin Extended Release Tab) 20 mg PO Q12H PRN PRN Reason: Pain, severe (8-10) Last Admin: 01/28/18 08:27 Dose: 20 mg Theophylline (Gideon-24) 200 mg PO BID [facility] Zolpidem Tartrate (Ambien) 10 mg PO HS [facility] Physical Exam - Constitutional Appears: Well, No Acute Distress - Head Exam Head Exam: ATRAUMATIC - Eye Exam Eye Exam: EOMI, Normal appearance, PERRL - ENT Exam ENT Exam: Mucous Membranes Moist, Normal Exam - Respiratory Exam Respiratory Exam: Clear to Auscultation Bilateral, NORMAL BREATHING PATTERN - Cardiovascular Exam Cardiovascular Exam: REGULAR RHYTHM - GI/Abdominal Exam GI & Abdominal Exam: Normal Bowel Sounds, Soft, Tenderness (mild) - Back Exam Back exam: FULL ROM, paraspinal tenderness, vertebral tenderness Additional comments: left worse than right - Neurological Exam Neurological exam: Alert, CN II-XII Intact, Oriented x3, Reflexes Normal Additional comments: negative SLR test bilaterally - Psychiatric Exam Psychiatric exam: Normal Affect, Normal Mood - Skin Skin Exam: Normal Color, Warm Results - Vital Signs Recent Vital Signs: Last Vital Signs Temp 98.1 F 01/28/18 08:01 Pulse 79 01/28/18 08:29 Resp 18 01/28/18 08:01 BP 108/69 01/28/18 08:29 Pulse Ox 93 L 01/28/18 08:01 - Labs Result Diagrams: 01/27/18 23:50 01/28/18 06:35 Labs: Laboratory Results - last 24 hr 01/27/18 01/27/18 01/28/18 23:50 23:50 00:18 WBC 10.2 D RBC 4.22 Hgb 14.9 Hct 42.7 MCV 101.0 H MCH 35.2 H MCHC 34.8 RDW 13.1 Plt Count 209 MPV 8.6 Neut % (Auto) 65.9 Lymph % (Auto) 20.7 [place] % (Auto) 8.5 Eos % (Auto) 3.8 Baso % (Auto) 1.1 Neut # (Auto) 6.7 Lymph # (Auto) 2.1 [place] # (Auto) 0.9 H Eos # (Auto) 0.4 Baso # (Auto) 0.1 Sodium 130 L Potassium 2.6 L Chloride 91 L Carbon Dioxide 23 Anion Gap 19 BUN 4 L Creatinine 0.5 L Est GFR ( Amer) > 60 Est GFR (Non-Af Amer) > 60 Random Glucose 85 Calcium 9.6 Total Bilirubin 1.0 AST 47 H D ALT 38 Alkaline Phosphatase 78 Total Protein 7.2 Albumin 4.3 Globulin 2.9 Albumin/Globulin Ratio 1.5 Urine Color Urine Clarity Urine pH Ur Specific [place] Urine Protein Urine Glucose (UA) Urine Ketones Urine Blood Urine Nitrate Urine Bilirubin Urine Urobilinogen Ur Leukocyte Esterase Urine RBC (Auto) Urine Microscopic WBC Ur Squamous Epith Cells Alcohol, Quantitative 27 H 01/28/18 01/28/18 00:44 06:35 WBC RBC Hgb Hct MCV MCH MCHC RDW Plt Count MPV Neut % (Auto) Lymph % (Auto) [place] % (Auto) Eos % (Auto) Baso % (Auto) Neut # (Auto) Lymph # (Auto) [place] # (Auto) Eos # (Auto) Baso # (Auto) Sodium 139 Potassium 3.4 L Chloride 103 Carbon Dioxide 30 Anion Gap 9 L BUN 5 L Creatinine 0.4 L Est GFR ( Amer) > 60 Est GFR (Non-Af Amer) > 60 Random Glucose 93 Calcium 9.1 Total Bilirubin AST ALT Alkaline Phosphatase Total Protein Albumin Globulin Albumin/Globulin Ratio Urine Color Colorless Urine Clarity Clear Urine pH 7.0 Ur Specific [place] < 1.005 Urine Protein Negative Urine Glucose (UA) Neg Urine Ketones Negative Urine Blood Negative Urine Nitrate Negative Urine Bilirubin Negative Urine Urobilinogen 0.2-1.0 Ur Leukocyte Esterase Neg Urine RBC (Auto) < 1 Urine Microscopic WBC < 1 Ur Squamous Epith Cells < 1 Alcohol, Quantitative Assessment & Plan (1) Chronic lower back pain Assessment and Plan: -Recommend pain control, PT/OT LB ROM and strengthening, lumbar spine MRI -Refer to Neurosurgery/pain management, patient's condition is outside scope of practice -Orthopedically stable -please reconsult as needed -above d/w Dr. Champion in agreement Status: Acute
--- NOTE | 2018-01-28 10:17 | CP.PCM.HP ---
History of Present Illness - History of Present Illness History of Present Illness: CC: acute on chronic back pain HPI: 57 y/o woman w/ pmh of IBS (diarrhea), COPD, HTN, s/p craniotomy w/ thigh muscle graft for cerebral aneurysm presented to ED w/ acute on chronic back pain. Patient reports she has had chronic back pain since her fall 1 month ago , more so on the left left side than right, but denies saddle paresthesia, urinary/bowel incontinence, or lower extremity weakness. Patient reported nausea and vomiting in ED but currently denies nausea and/or vomiting. Patient denies headaches, chest pain, SOB, dysuria, or fever. PMD: Dr. Krishnan PMH: IBS (diarrhea), COPD, HTN, s/p craniotomy w/ thigh muscle graft for cerebral aneurysm meds: see med list allergies: NKDA PSH: x3, craniotomy w/ thigh muscle graft Fam: mother stomach and lung cancer, father lung cancer, grandmother lung cancer , aunt lung cancer SOC: smokes 1/2 pack/day for 42 years, denies alcohol and drugs ROS: 12 points assessed and negative unless otherwise reported in HPI Present on Admission - Present on Admission Any Indicators Present on Admission: No History of DVT/PE: No History of Uncontrolled Diabetes: No Urinary Catheter: No Decubitus Ulcer Present: No Review of Systems - Review of Systems All systems: reviewed and no additional remarkable complaints except - Constitutional Constitutional: absent: Chills, Fever - EENT Eyes: absent: Change in Vision - Cardiovascular Cardiovascular: absent: Chest Pain - Respiratory Respiratory: absent: Dyspnea - Gastrointestinal Gastrointestinal: As Per HPI, Diarrhea. absent: Abdominal Pain, Fecal Incontinence, Nausea, Vomiting - Genitourinary Genitourinary: absent: Dysuria, Urinary Incontinence - Integumentary Integumentary: absent: Rash - Neurological Neurological: As Per HPI, Radicular Pain. 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 - HEENT Hx HEENT Problems: Yes Other/Comment: patient wears glasses - RENAL Hx Chronic Kidney Disease: No - ENDOCRINE/METABOLIC Hx Endocrine Disorders: No - HEMATOLOGICAL/ONCOLOGICAL Hx Blood Disorders: No Hx Human Immunodeficiency Virus (HIV): No - INTEGUMENTARY Hx Dermatological Problems: No - MUSCULOSKELETAL/RHEUMATOLOGICAL Hx Musculoskeletal Disorders: Yes Hx Back Pain: Yes (chronic) Hx Falls: No - GASTROINTESTINAL Hx Gastrointestinal Disorders: Yes Hx Gastroesophageal Reflux: Yes Hx Irritable Bowel: Yes (WITH DIARRHEA) - GENITOURINARY/GYNECOLOGICAL Hx Genitourinary Disorders: No - PSYCHIATRIC Hx Psychophysiologic Disorder: Yes Hx Anxiety: Yes Hx Substance Use: No - SURGICAL HISTORY Hx Surgeries: Yes Hx Section: Yes (x3) Hx Hysterectomy: Yes Other/Comment: BRAIN ANEURYSM REPAIRED x2, 1 OVARY RESECTION - ANESTHESIA Hx Anesthesia: Yes Hx Anesthesia Reactions: No Hx Malignant Hyperthermia: No Meds Allergies/Adverse Reactions: Allergies Allergy/AdvReac Type Severity Reaction Status Date / Time No Known Allergies Allergy Verified 01/28/18 05:32 Physical Exam - Constitutional Appears: Non-toxic, No Acute Distress - Head Exam Head Exam: NORMAL INSPECTION, NORMOCEPHALIC Additional comments: healed scar on left sided parietal s/p craniotomy - Eye Exam Eye Exam: Normal appearance - ENT Exam ENT Exam: Mucous Membranes Moist - Neck Exam Neck exam: Positive for: Full Rom. Negative for: Tenderness - Respiratory Exam Respiratory Exam: Decreased Breath Sounds. absent: Accessory Muscle Use, Rales , Rhonchi, Wheezes, Respiratory Distress - Cardiovascular Exam Cardiovascular Exam: REGULAR RHYTHM. absent: Tachycardia - GI/Abdominal Exam GI & Abdominal Exam: Normal Bowel Sounds, Soft. absent: Distended, Tenderness - Extremities Exam Extremities exam: Negative for: calf tenderness - Back Exam Back exam: muscle spasm, paraspinal tenderness. absent: CVA tenderness (L), CVA tenderness (R) - Neurological Exam Neurological exam: Alert, CN II-XII Intact, Oriented x3 - Skin Skin Exam: Dry, Normal Color, Warm Additional comments: healed scar on left sided parietal scalp s/p craniotomy Results - Vital Signs Recent Vital Signs: Last Vital Signs Temp 98.1 F 01/28/18 08:01 Pulse 79 01/28/18 08:29 Resp 18 01/28/18 08:01 BP 108/69 01/28/18 08:29 Pulse Ox 93 L 01/28/18 08:01 - Labs Result Diagrams: 01/27/18 23:50 01/28/18 06:35 Labs: Laboratory Results - last 24 hr 01/27/18 01/27/18 01/28/18 23:50 23:50 00:18 WBC 10.2 D RBC 4.22 Hgb 14.9 Hct 42.7 MCV 101.0 H MCH 35.2 H MCHC 34.8 RDW 13.1 Plt Count 209 MPV 8.6 Neut % (Auto) 65.9 Lymph % (Auto) 20.7 [place] % (Auto) 8.5 Eos % (Auto) 3.8 Baso % (Auto) 1.1 Neut # (Auto) 6.7 Lymph # (Auto) 2.1 [facility] # (Auto) 0.9 H Eos # (Auto) 0.4 Baso # (Auto) 0.1 Sodium 130 L Potassium 2.6 L Chloride 91 L Carbon Dioxide 23 Anion Gap 19 BUN 4 L Creatinine 0.5 L Est GFR ( Amer) > 60 Est GFR (Non-Af Amer) > 60 Random Glucose 85 Calcium 9.6 Total Bilirubin 1.0 AST 47 H D ALT 38 Alkaline Phosphatase 78 Total Protein 7.2 Albumin 4.3 Globulin 2.9 Albumin/Globulin Ratio 1.5 Urine Color Urine Clarity Urine pH Ur Specific [place] Urine Protein Urine Glucose (UA) Urine Ketones Urine Blood Urine Nitrate Urine Bilirubin Urine Urobilinogen Ur Leukocyte Esterase Urine RBC (Auto) Urine Microscopic WBC Ur Squamous Epith Cells Alcohol, Quantitative 27 H 01/28/18 01/28/18 00:44 06:35 WBC RBC Hgb Hct MCV MCH MCHC RDW Plt Count MPV Neut % (Auto) Lymph % (Auto) [facility] % (Auto) Eos % (Auto) Baso % (Auto) Neut # (Auto) Lymph # (Auto) [facility] # (Auto) Eos # (Auto) Baso # (Auto) Sodium 139 Potassium 3.4 L Chloride 103 Carbon Dioxide 30 Anion Gap 9 L BUN 5 L Creatinine 0.4 L Est GFR ( Amer) > 60 Est GFR (Non-Af Amer) > 60 Random Glucose 93 Calcium 9.1 Total Bilirubin AST ALT Alkaline Phosphatase Total Protein Albumin Globulin Albumin/Globulin Ratio Urine Color Colorless Urine Clarity Clear Urine pH 7.0 Ur Specific [place] < 1.005 Urine Protein Negative Urine Glucose (UA) Neg Urine Ketones Negative Urine Blood Negative Urine Nitrate Negative Urine Bilirubin Negative Urine Urobilinogen 0.2-1.0 Ur Leukocyte Esterase Neg Urine RBC (Auto) < 1 Urine Microscopic WBC < 1 Ur Squamous Epith Cells < 1 Alcohol, Quantitative Assessment & Plan (1) Acute exacerbation of chronic low back pain Status: Acute (2) Chronic lower back pain Status: Chronic (3) History of craniotomy Status: Chronic (4) COPD (chronic obstructive pulmonary disease) Status: Chronic Priority: Medium (5) IBS (irritable bowel syndrome) Status: Chronic - Assessment and Plan (Free Text) Plan: afebrile, non-tachycardic, normotensive Pain Management consult ordered Orthopaedic consult ordered Psychiatry consult ordered XR L-spine 01/08/2018: no acute fracture or spondylosis U/S renal 01/08/2018: no hydronephrosis or nephrolithiasis CBC: 10.2>14.9/42.7<209 ESR: 5 CMP: 139/3.4, 103/30, 5/0.4, glucose 93, ASt 47, ALT 38, alk phos 78 UA: WNL c/w home medications f/u ROGE w/ reflex f/u urine culture PT/OT ordered prophylactic measures: DVT lovenox 40 mg SC daily monitor for acute changes
[2018-01-28] MEDS: THEOPHYLLINE 400 MG T24(UNIPHYL) PO SCH (11:08)
--- NOTE | 2018-01-28 14:53 | CP.PCM.CON ---
History of Present Illness - History of Present Illness History of Present Illness: Pain Consult (Initial) for Dr Escobar Pt chart, case reviewed. Pt seen at bedside. Pt is chronic back pain patient being managed by another pain doctor. She states at home she is on: Oxycodone 10/325mg PO TID, Codeine 60mg PO q6. OxyContin XR 20mg BID as well as Xanax and Ambien. Currently in the hospital she has been written for OxyContin XR 20mg q12 and Codeine 30mg PO q6. Initial recommendation would be to verify home narcotic prescription and doses with her pharmacy and put her back on same meds. Dr Escobar will review chart and provide input later today. 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 - HEENT Hx HEENT Problems: Yes Other/Comment: patient wears glasses - RENAL Hx Chronic Kidney Disease: No - ENDOCRINE/METABOLIC Hx Endocrine Disorders: No - HEMATOLOGICAL/ONCOLOGICAL Hx Blood Disorders: No Hx Human Immunodeficiency Virus (HIV): No - INTEGUMENTARY Hx Dermatological Problems: No - MUSCULOSKELETAL/RHEUMATOLOGICAL Hx Musculoskeletal Disorders: Yes Hx Back Pain: Yes (chronic) Hx Falls: No - GASTROINTESTINAL Hx Gastrointestinal Disorders: Yes Hx Gastroesophageal Reflux: Yes Hx Irritable Bowel: Yes (WITH DIARRHEA) - GENITOURINARY/GYNECOLOGICAL Hx Genitourinary Disorders: No - PSYCHIATRIC Hx Psychophysiologic Disorder: Yes Hx Anxiety: Yes Hx Substance Use: No - SURGICAL HISTORY Hx Surgeries: Yes Hx Section: Yes (x3) Hx Hysterectomy: Yes Other/Comment: BRAIN ANEURYSM REPAIRED x2, 1 OVARY RESECTION - ANESTHESIA Hx Anesthesia: Yes Hx Anesthesia Reactions: No Hx Malignant Hyperthermia: No Meds Allergies/Adverse Reactions: Allergies Allergy/AdvReac Type Severity Reaction Status Date / Time No Known Allergies Allergy Verified 01/28/18 05:32 - Medications Medications: Current Medications Albuterol (Ventolin Hfa 90 Mcg/Actuation (8 G)) 2 puff INH QID PRN PRN Reason: wheezing Alprazolam (Xanax) 1 mg PO TID PRN PRN Reason: Anxiety Last Admin: 01/28/18 13:04 Dose: 1 mg Amlodipine Besylate (Norvasc) 10 mg PO DAILY [facility] Last Admin: 01/28/18 08:29 Dose: 10 mg Codeine Sulfate (Codeine) 30 mg PO Q6 PRN PRN Reason: Pain, moderate (4-7) Enoxaparin Sodium (Lovenox) 40 mg SC DAILY [facility] PRN Reason: Protocol Last Admin: 01/28/18 08:29 Dose: 40 mg Ondansetron HCl (Zofran Inj) 4 mg IVP Q6 PRN PRN Reason: Nausea/Vomiting Last Admin: 01/28/18 12:57 Dose: 4 mg Oxycodone HCl (Oxycontin Extended Release Tab) 20 mg PO Q12H PRN PRN Reason: Pain, severe (8-10) Last Admin: 01/28/18 08:27 Dose: 20 mg Theophylline (Uniphyl) 400 mg PO DAILY [facility] Last Admin: 01/28/18 11:08 Dose: 400 mg Zolpidem Tartrate (Ambien) 10 mg PO [facility] Results - Vital Signs Recent Vital Signs: Last Vital Signs Temp 97.8 F 01/28/18 11:58 Pulse 78 01/28/18 11:58 Resp 20 01/28/18 11:58 BP 108/72 01/28/18 11:58 Pulse Ox 93 L 01/28/18 11:58 - Labs Result Diagrams: 01/27/18 23:50 01/28/18 06:35 Labs: Laboratory Results - last 24 hr 01/27/18 01/27/18 01/28/18 23:50 23:50 00:18 WBC 10.2 D RBC 4.22 Hgb 14.9 Hct 42.7 MCV 101.0 H MCH 35.2 H MCHC 34.8 RDW 13.1 Plt Count 209 MPV 8.6 Neut % (Auto) 65.9 Lymph % (Auto) 20.7 [place] % (Auto) 8.5 Eos % (Auto) 3.8 Baso % (Auto) 1.1 Neut # (Auto) 6.7 Lymph # (Auto) 2.1 [place] # (Auto) 0.9 H Eos # (Auto) 0.4 Baso # (Auto) 0.1 ESR Sodium 130 L Potassium 2.6 L Chloride 91 L Carbon Dioxide 23 Anion Gap 19 BUN 4 L Creatinine 0.5 L Est GFR ( Amer) > 60 Est GFR (Non-Af Amer) > 60 Random Glucose 85 Calcium 9.6 Total Bilirubin 1.0 AST 47 H D ALT 38 Alkaline Phosphatase 78 Total Protein 7.2 Albumin 4.3 Globulin 2.9 Albumin/Globulin Ratio 1.5 Urine Color Urine Clarity Urine pH Ur Specific [place] Urine Protein Urine Glucose (UA) Urine Ketones Urine Blood Urine Nitrate Urine Bilirubin Urine Urobilinogen Ur Leukocyte Esterase Urine RBC (Auto) Urine Microscopic WBC Ur Squamous Epith Cells Alcohol, Quantitative 27 H 01/28/18 01/28/18 01/28/18 00:44 06:35 09:11 WBC RBC Hgb Hct MCV MCH MCHC RDW Plt Count MPV Neut % (Auto) Lymph % (Auto) [place] % (Auto) Eos % (Auto) Baso % (Auto) Neut # (Auto) Lymph # (Auto) [place] # (Auto) Eos # (Auto) Baso # (Auto) ESR 5 Sodium 139 Potassium 3.4 L Chloride 103 Carbon Dioxide 30 Anion Gap 9 L BUN 5 L Creatinine 0.4 L Est GFR ( Amer) > 60 Est GFR (Non-Af Amer) > 60 Random Glucose 93 Calcium 9.1 Total Bilirubin AST ALT Alkaline Phosphatase Total Protein Albumin Globulin Albumin/Globulin Ratio Urine Color Colorless Urine Clarity Clear Urine pH 7.0 Ur Specific [place] < 1.005 Urine Protein Negative Urine Glucose (UA) Neg Urine Ketones Negative Urine Blood Negative Urine Nitrate Negative Urine Bilirubin Negative Urine Urobilinogen 0.2-1.0 Ur Leukocyte Esterase Neg Urine RBC (Auto) < 1 Urine Microscopic WBC < 1 Ur Squamous Epith Cells < 1 Alcohol, Quantitative
[2018-01-29] MEDS: Enoxaparin 40 mg Syringe SC SCH (08:35)
[2018-01-29] MEDS: THEOPHYLLINE 400 MG T24(UNIPHYL) PO SCH (08:36)
--- NOTE | 2018-01-29 09:51 | CP.PCM.PN ---
Subjective - Date & Time of Evaluation Date of Evaluation: 01/29/18 Time of Evaluation: 07:10 - Subjective Subjective: Patient seen and examined this morning at bedside w/ Dr. Patterson. Patient continues to complain of chronic back pain more so on the left. Patient reports some relief w/ medication. Patient currently denies headaches, chest pain, SOB, abdominal pain, nausea, vomiting, dysuria, or fever. Objective - Vital Signs/Intake and Output Vital Signs (last 24 hours): Temp Pulse Resp BP Pulse Ox 98.2 F 80 20 135/95 H 93 L 01/29/18 07:58 01/29/18 08:36 01/29/18 07:58 01/29/18 08:36 01/29/18 07:58 - Medications Medications: Current Medications Albuterol (Ventolin Hfa 90 Mcg/Actuation (8 G)) 2 puff INH QID PRN PRN Reason: wheezing Alprazolam (Xanax) 1 mg PO TID PRN PRN Reason: Anxiety Last Admin: 01/28/18 13:04 Dose: 1 mg Amlodipine Besylate (Norvasc) 10 mg PO DAILY [facility] Last Admin: 01/29/18 08:36 Dose: 10 mg Codeine Sulfate (Codeine) 30 mg PO Q6 PRN PRN Reason: Pain, moderate (4-7) Last Admin: 01/29/18 05:08 Dose: 30 mg Enoxaparin Sodium (Lovenox) 40 mg SC DAILY [facility] PRN Reason: Protocol Last Admin: 01/29/18 08:35 Dose: 40 mg Morphine Sulfate (Morphine) 2 mg IVP Q6 PRN PRN Reason: severe pain 8-10 Last Admin: 01/29/18 08:32 Dose: 2 mg Ondansetron HCl (Zofran Inj) 4 mg IVP Q6 PRN PRN Reason: Nausea/Vomiting Last Admin: 01/29/18 08:41 Dose: 4 mg Oxycodone HCl (Oxycontin Extended Release Tab) 20 mg PO Q12H PRN PRN Reason: Pain, severe (8-10) Last Admin: 01/28/18 21:03 Dose: 20 mg Theophylline (Uniphyl) 400 mg PO DAILY [facility] Last Admin: 01/29/18 08:36 Dose: 400 mg Zolpidem Tartrate (Ambien) 10 mg PO HS [facility] Last Admin: 01/28/18 22:02 Dose: 10 mg - Labs Labs: 01/27/18 23:50 01/28/18 06:35 - Constitutional Appears: Non-toxic, No Acute Distress - Head Exam Head Exam: NORMAL INSPECTION, NORMOCEPHALIC Additional comments: healed scar on left sided parietal s/p craniotomy - Eye Exam Eye Exam: Normal appearance - ENT Exam ENT Exam: Mucous Membranes Moist - Neck Exam Neck Exam: Full ROM. absent: Tenderness - Respiratory Exam Respiratory Exam: Decreased Breath Sounds. absent: Accessory Muscle Use, Rales , Rhonchi, Wheezes, Respiratory Distress - Cardiovascular Exam Cardiovascular Exam: REGULAR RHYTHM. absent: Tachycardia - GI/Abdominal Exam GI & Abdominal Exam: Soft, Normal Bowel Sounds. absent: Distended, Tenderness - Extremities Exam Extremities Exam: absent: Calf Tenderness - Back Exam Back Exam: muscle spasm, paraspinal tenderness - Neurological Exam Neurological Exam: Alert, Awake, CN II-XII Intact, Normal Gait, Oriented x3 - Skin Skin Exam: Dry, Normal Color, Warm Additional comments: healed scar on left sided parietal scalp s/p craniotomy Assessment and Plan (1) Acute exacerbation of chronic low back pain Status: Acute (2) Chronic lower back pain Status: Chronic (3) History of craniotomy Status: Chronic (4) COPD (chronic obstructive pulmonary disease) Status: Chronic (5) IBS (irritable bowel syndrome) Status: Chronic - Assessment and Plan (Free Text) Plan: afebrile, non-tachycardic, normotensive Pain Management recommendations appreciated Orthopaedic recommendations appreciated Psychiatry recommendations appreciated XR L-spine 01/08/2018: no acute fracture or spondylosis U/S renal 01/08/2018: no hydronephrosis or nephrolithiasis UA: WNL urine culture: no growth c/w home medications f/u ROGE w/ reflex f/u MRI L-spine w/o contrast PT/OT ordered prophylactic measures: DVT lovenox 40 mg SC daily monitor for acute changes
--- NOTE | 2018-01-29 10:10 | CP.PCM.PN ---
Subjective - Date & Time of Evaluation Date of Evaluation: 01/29/18 Time of Evaluation: 09:55 - Subjective Subjective: f/u Dr. Champion Patient says the pain in her back is still severe, and wraps around the sides to her kidneys. Denies any change in bowel or bladder, denies any numbness or tingling. SHe says he last MRI was 3 years ago and that she had some foreign object in her back that they found. She says she had epidurals for her csections , last was 27 years ago. Objective - Vital Signs/Intake and Output Vital Signs (last 24 hours): Temp Pulse Resp BP Pulse Ox 98.2 F 80 20 135/95 H 93 L 01/29/18 07:58 01/29/18 08:36 01/29/18 07:58 01/29/18 08:36 01/29/18 07:58 - Medications Medications: Current Medications Albuterol (Ventolin Hfa 90 Mcg/Actuation (8 G)) 2 puff INH QID PRN PRN Reason: wheezing Alprazolam (Xanax) 1 mg PO TID PRN PRN Reason: Anxiety Last Admin: 01/28/18 13:04 Dose: 1 mg Amlodipine Besylate (Norvasc) 10 mg PO DAILY [facility] Last Admin: 01/29/18 08:36 Dose: 10 mg Codeine Sulfate (Codeine) 30 mg PO Q6 PRN PRN Reason: Pain, moderate (4-7) Last Admin: 01/29/18 05:08 Dose: 30 mg Enoxaparin Sodium (Lovenox) 40 mg SC DAILY [facility] PRN Reason: Protocol Last Admin: 01/29/18 08:35 Dose: 40 mg Morphine Sulfate (Morphine) 2 mg IVP Q6 PRN PRN Reason: severe pain 8-10 Last Admin: 01/29/18 08:32 Dose: 2 mg Ondansetron HCl (Zofran Inj) 4 mg IVP Q6 PRN PRN Reason: Nausea/Vomiting Last Admin: 01/29/18 08:41 Dose: 4 mg Oxycodone HCl (Oxycontin Extended Release Tab) 20 mg PO Q12H PRN PRN Reason: Pain, severe (8-10) Last Admin: 01/28/18 21:03 Dose: 20 mg Theophylline (Uniphyl) 400 mg PO DAILY [facility] Last Admin: 01/29/18 08:36 Dose: 400 mg Zolpidem Tartrate (Ambien) 10 mg PO HS [facility] Last Admin: 01/28/18 22:02 Dose: 10 mg - Labs Labs: 01/27/18 23:50 01/28/18 06:35 - Constitutional Appears: Well, No Acute Distress (patient walking up and down hallway, slightly flexed trunk, no acute distress) - Neck Exam Neck Exam: Full ROM - Respiratory Exam Respiratory Exam: NORMAL BREATHING PATTERN - Cardiovascular Exam Additional comments: +DP/PT pulses calves soft NT neg homans - Extremities Exam Additional comments: sensation intact BLE - Back Exam Back Exam: NORMAL INSPECTION, paraspinal tenderness - Neurological Exam Neurological Exam: Alert, Awake, Oriented x3 Neuro motor strength exam: Left Lower Extremity: 5, Right Lower Extremity: 5 - Psychiatric Exam Psychiatric exam: Normal Affect, Normal Mood - Skin Skin Exam: Dry, Intact, Normal Color, Warm Assessment and Plan (1) Chronic lower back pain Assessment & Plan: patient has a catheter in her spinal canal around T12-L4, patient says she last had epidural for emergency C section 27 years ago, no other procedures since then catheter is noted CT 2014 and 2017 of abd and pelvis D/w radiology Dr. Morelos, patient had MRI Abd 2017 and does not appear to be metallic This is outside scope of practice of DR. Champion, neurosurgery consultation is indicated, d/w Dr. Marcus MRI lumbar spine pending neurosurgery consultation outside of orthopedics, defer to revenue tax specialist d/w Dr. 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 - HEENT Hx HEENT Problems: Yes Other/Comment: patient wears glasses - RENAL Hx Chronic Kidney Disease: No - ENDOCRINE/METABOLIC Hx Endocrine Disorders: No - HEMATOLOGICAL/ONCOLOGICAL Hx Blood Disorders: No Hx Human Immunodeficiency Virus (HIV): No - INTEGUMENTARY Hx Dermatological Problems: No - MUSCULOSKELETAL/RHEUMATOLOGICAL Hx Musculoskeletal Disorders: Yes Hx Back Pain: Yes (chronic) Hx Falls: No - GASTROINTESTINAL Hx Gastrointestinal Disorders: Yes Hx Gastroesophageal Reflux: Yes Hx Irritable Bowel: Yes (WITH DIARRHEA) - GENITOURINARY/GYNECOLOGICAL Hx Genitourinary Disorders: No - PSYCHIATRIC Hx Psychophysiologic Disorder: Yes Hx Anxiety: Yes Hx Substance Use: No - SURGICAL HISTORY Hx Surgeries: Yes Hx Section: Yes (x3) Hx Hysterectomy: Yes Other/Comment: BRAIN ANEURYSM REPAIRED x2, 1 OVARY RESECTION - ANESTHESIA Hx Anesthesia: Yes Hx Anesthesia Reactions: No Hx Malignant Hyperthermia: No Radiology Interpretation - Radiology Interpretation #2 Interpretation: atient Name / ID : QAMAR CLARK / [id number] Exam Date : 01/08/2018 17:01:42 ( Approved ) Study Comment : Sex / Age : F / 57Y Creator : Virgen Baldwin MD Dictator : Virgen Baldwin MD Chute Loader : Operations Processor : Virgen Baldwin MD Approver2 : Report Date : 01/08/2018 17:22:29 My Comment : PROCEDURE: Radiographs of the Lumbar Spine. HISTORY: Low back pain, fall COMPARISON: No prior. FINDINGS: BONES: There is degenerative 8 mm anterior listhesis of L4 on L5. There is normal lumbar lordosis. There is diffuse bone demineralization. There is no acute fracture. There is no spondylolysis. DISC SPACES: There is multilevel degenerative disc disease with mild reduced disc heights and multilevel facet arthropathy, worse at L4-5. OTHER FINDINGS: There is a catheter in the lumbar spine. There are no pathologic soft tissue calcifications. Both sacroiliac joints are normal. IMPRESSION: No acute fracture or spondylolysis. Multilevel degenerative disc disease, worse at L4-5 with degenerative grade 1 anterior listhesis of L4 on L5. - Radiology Interpretation #3 Interpretation: Patient Name / ID : QAMAR CLARK / [id number] Exam Date : 07/15/2017 19:26:45 ( Approved ) Study Comment : Sex / Age : F / 56Y Creator : Oracio Quick MD Dictator : Oracio Quick MD Chute Loader : Operations Processor : Oracio Quick MD Approver2 : Report Date : 07/16/2017 09:39:08 My Comment : PROCEDURE: CT Abdomen and Pelvis with contrast HISTORY: RLQ pain COMPARISON: None. TECHNIQUE: Contrast dose: 95 mL Omnipaque 300 Radiation dose: Total exam DLP = 514.7 mGy-cm. This CT exam was performed using one or more of the following dose reduction techniques: Automated exposure control, adjustment of the mA and/or kV according to patient size, and/or use of iterative reconstruction technique. FINDINGS: LOWER THORAX: Partially imaged right middle lobe consolidation. LIVER: Steatosis. Stable mild central ductal dilatation. GALLBLADDER AND BILE DUCTS: Unremarkable. Stable prominence of the CBD measuring up to 1.1 centimeter. PANCREAS: Stable mild ductal dilatation. SPLEEN: Unremarkable main spleen and splenule. ADRENALS: Unremarkable. No mass. KIDNEYS AND URETERS: Stable subcentimeter left renal cysts. No hydronephrosis. No solid mass. VASCULATURE: Atherosclerotic calcifications. No aortic aneurysm. BOWEL: Unremarkable. No obstruction. No gross mural thickening. APPENDIX: Not visualized. PERITONEUM: Unremarkable. No free fluid. No free air. LYMPH NODES: Unremarkable. No enlarged lymph nodes. BLADDER: Unremarkable. REPRODUCTIVE: Not visualized. BONES: No acute fracture. OTHER FINDINGS: Radiopaque foreign body in posterior spinal canal extending from T12-L4 redemonstrated. IMPRESSION: Partially imaged right middle lobe consolidation. Stable biliary and pancreatic ductal dilatation. Additional stable findings as above.
[2018-01-29] MEDS: oxyCODONE 20 mg ER Tab (oxyCONTIN) PO PRN (10:43)
[2018-01-30] MEDS: oxyCODONE 20 mg ER Tab (oxyCONTIN) PO PRN ×2 (07:15→21:32)
[2018-01-30] MEDS: THEOPHYLLINE 400 MG T24(UNIPHYL) PO SCH (09:11)
[2018-01-30] MEDS: Enoxaparin 40 mg Syringe SC SCH (09:11)
[2018-01-30] MEDS ORDERED: Magnesium Citrate Oral SOL (300 ml) PO ONE (10:49)
--- NOTE | 2018-01-30 13:00 | PN ---
DATE: 01/30/2018 SUBJECTIVE: The patient is seen and examined. Interim events noted. Consults noted and appreciated. Orthopedic followup and interventions noted and appreciated. The patient remains in progressive care unit. The patient feels okay, but still has significant amount of pain. No chest pain. No shortness of breath. PHYSICAL EXAMINATION: GENERAL: The patient is in no acute distress. VITAL SIGNS: Stable. HEART: S1 and S2, normal and regular. LUNGS: Good bilateral air exchange. ABDOMEN: Soft and nontender. EXTREMITIES: No edema. No calf swelling. No tenderness. No acute ischemia. LADLE BUILDER: Exam is essentially unchanged. DIAGNOSTIC DATA: Available diagnostic data reviewed. Telemetry monitoring does not reveal significant arrhythmias. MRI, official report is pending, but there seems to be a catheter in the spinal canal. PLAN: As ordered, treatment and plan discussed with the patient. Deny Patterson MD
[2018-01-31 07:52] LABS: HEMOGLOBIN 14.2 g/dL (12.0-16.0); MEAN CELL VOLUME 102.9 fl (81.0-99.0); MEAN CORPUSCULAR HEMOGLOBIN 34.5 pg (27.0-31.0); MEAN CORPUSCULAR HGB CONC 33.5 g/dL (33.0-37.0); RBC 4.13 Mil/uL (3.80-5.20); RED CELL DISTRIBUTION WIDTH 13.2 % (11.5-14.5); WHITE BLOOD COUNT 8.8 K/uL (4.8-10.8)
[2018-01-31 08:20] LABS: ALB/GLOB RATIO 1.3 (1.0-2.1); ALBUMIN 3.9 g/dL (3.5-5.0); ALT/SGPT 31 U/L (9-52); AST/SGOT 29 U/L (14-36); BLOOD UREA NITROGEN 16 mg/dl (7-17); CALCIUM 9.6 mg/dL (8.4-10.2); GFR AFRICAN-AMERICAN > 60; GFR NON-AFRICAN AMERICAN > 60
[2018-01-31] MEDS: Enoxaparin 40 mg Syringe SC SCH (10:08)
[2018-01-31] MEDS: THEOPHYLLINE 400 MG T24(UNIPHYL) PO SCH (10:09)
--- NOTE | 2018-01-31 10:58 | CP.PCM.CON ---
History of Present Illness - History of Present Illness History of Present Illness: dictated No reason to be concerned about 28 YO retained catheter otherwise MRI rather benign rec pain mgmt 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 - HEENT Hx HEENT Problems: Yes Other/Comment: patient wears glasses - RENAL Hx Chronic Kidney Disease: No - ENDOCRINE/METABOLIC Hx Endocrine Disorders: No - HEMATOLOGICAL/ONCOLOGICAL Hx Blood Disorders: No Hx Human Immunodeficiency Virus (HIV): No - INTEGUMENTARY Hx Dermatological Problems: No - MUSCULOSKELETAL/RHEUMATOLOGICAL Hx Musculoskeletal Disorders: Yes Hx Back Pain: Yes (chronic) Hx Falls: No - GASTROINTESTINAL Hx Gastrointestinal Disorders: Yes Hx Gastroesophageal Reflux: Yes Hx Irritable Bowel: Yes (WITH DIARRHEA) - GENITOURINARY/GYNECOLOGICAL Hx Genitourinary Disorders: No - PSYCHIATRIC Hx Psychophysiologic Disorder: Yes Hx Anxiety: Yes Hx Substance Use: No - SURGICAL HISTORY Hx Surgeries: Yes Hx Section: Yes (x3) Hx Hysterectomy: Yes Other/Comment: BRAIN ANEURYSM REPAIRED x2, 1 OVARY RESECTION - ANESTHESIA Hx Anesthesia: Yes Hx Anesthesia Reactions: No Hx Malignant Hyperthermia: No Meds Allergies/Adverse Reactions: Allergies Allergy/AdvReac Type Severity Reaction Status Date / Time No Known Allergies Allergy Verified 01/28/18 05:32 - Medications Medications: Current Medications Albuterol (Ventolin Hfa 90 Mcg/Actuation (8 G)) 2 puff INH QID PRN PRN Reason: wheezing Last Admin: 01/29/18 14:35 Dose: 2 puff Alprazolam (Xanax) 1 mg PO BID PRN PRN Reason: Anxiety Last Admin: 01/30/18 22:02 Dose: 1 mg Amlodipine Besylate (Norvasc) 10 mg PO DAILY [facility] Last Admin: 01/31/18 10:08 Dose: 10 mg Codeine Sulfate (Codeine) 30 mg PO Q8 [facility] Last Admin: 01/31/18 10:07 Dose: 30 mg Enoxaparin Sodium (Lovenox) 40 mg SC DAILY [facility] PRN Reason: Protocol Last Admin: 01/31/18 10:08 Dose: 40 mg Morphine Sulfate (Morphine) 0.5 mg IVP Q6 PRN PRN Reason: severe pain 8-10 Ondansetron HCl (Zofran Inj) 4 mg IVP Q6 PRN PRN Reason: Nausea/Vomiting Last Admin: 01/31/18 10:13 Dose: 4 mg Oxycodone HCl (Oxycontin Extended Release Tab) 20 mg PO Q12H PRN PRN Reason: Pain, severe (8-10) Last Admin: 01/30/18 21:32 Dose: 20 mg Theophylline (Uniphyl) 400 mg PO DAILY [facility] Last Admin: 01/31/18 10:09 Dose: 400 mg Zolpidem Tartrate (Ambien) 10 mg PO HS [facility] Last Admin: 01/30/18 23:15 Dose: 10 mg Results - Vital Signs Recent Vital Signs: Last Vital Signs Temp 98.1 F 01/31/18 08:10 Pulse 64 01/31/18 10:08 Resp 18 01/31/18 08:10 BP 123/83 01/31/18 10:08 Pulse Ox 96 01/31/18 08:10 - Labs Result Diagrams: 01/31/18 06:20 01/31/18 06:20 Labs: Laboratory Results - last 24 hr 01/31/18 01/31/18 06:20 06:20 WBC 8.8 RBC 4.13 Hgb 14.2 Hct 42.5 MCV 102.9 H MCH 34.5 H MCHC 33.5 RDW 13.2 Plt Count 180 Sodium 139 Potassium 3.7 Chloride 102 Carbon Dioxide 28 Anion Gap 13 BUN 16 Creatinine 0.7 Est GFR ( Amer) > 60 Est GFR (Non-Af Amer) > 60 Random Glucose 87 Calcium 9.6 Total Bilirubin 0.8 AST 29 ALT 31 Alkaline Phosphatase 59 Total Protein 6.9 Albumin 3.9 Globulin 3.0 Albumin/Globulin Ratio 1.3
[2018-01-31] MEDS: oxyCODONE 20 mg ER Tab (oxyCONTIN) PO PRN (12:32)
--- NOTE | 2018-01-31 12:59 | PN ---
DATE: 01/31/2018 SUBJECTIVE: The patient is seen and examined. Interim events noted. Neurosurgery consult is pending. We will get neurology consult for opinion also. The patient complains of pain, had constipation and was given magnesium citrate. Had frequent bowel movement. No chest pain. No shortness of breath. PHYSICAL EXAMINATION: GENERAL: The patient is no acute distress. VITAL SIGNS: Stable. HEART: S1 and S2. Normal and regular. LUNGS: Good bilateral air exchange. ABDOMEN: Soft and nontender. EXTREMITIES: No edema. No tenderness. No acute ischemia. CUSTOMS AND BORDER PROTECTION OFFICER: Exam is essentially unchanged. DIAGNOSTIC DATA: Available diagnostic data reviewed. ASSESSMENT AND PLAN: Overall, the patient's general medical condition is stable. Plan as ordered. Deny Patterson MD
--- NOTE | 2018-01-31 13:18 | CP.PCM.CON ---
History of Present Illness - History of Present Illness History of Present Illness: Neurology Consultation Note: Mrs. Ashley is a 57-year-old woman with a past medical history of IBS, COPD, HTN, treated cerebral aneurysm, who has chronic back pain, but presented to the ED yesterday for exacerbation. She is on high doses of opiates, benzodiazepines and is being managed by pain management. Lumbar MRI was done and appears to be mild to moderate and does not explain her level of pain. I was consulted to evaluate the patient and review MRI. Neurosurgery was also consulted and I agree that there is not a significant amount of disease to be concerned with, and that she would benefit more from pain management. 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 - HEENT Hx HEENT Problems: Yes Other/Comment: patient wears glasses - RENAL Hx Chronic Kidney Disease: No - ENDOCRINE/METABOLIC Hx Endocrine Disorders: No - HEMATOLOGICAL/ONCOLOGICAL Hx Blood Disorders: No Hx Human Immunodeficiency Virus (HIV): No - INTEGUMENTARY Hx Dermatological Problems: No - MUSCULOSKELETAL/RHEUMATOLOGICAL Hx Musculoskeletal Disorders: Yes Hx Back Pain: Yes (chronic) Hx Falls: No - GASTROINTESTINAL Hx Gastrointestinal Disorders: Yes Hx Gastroesophageal Reflux: Yes Hx Irritable Bowel: Yes (WITH DIARRHEA) - GENITOURINARY/GYNECOLOGICAL Hx Genitourinary Disorders: No - PSYCHIATRIC Hx Psychophysiologic Disorder: Yes Hx Anxiety: Yes Hx Substance Use: No - SURGICAL HISTORY Hx Surgeries: Yes Hx Section: Yes (x3) Hx Hysterectomy: Yes Other/Comment: BRAIN ANEURYSM REPAIRED x2, 1 OVARY RESECTION - ANESTHESIA Hx Anesthesia: Yes Hx Anesthesia Reactions: No Hx Malignant Hyperthermia: No Meds Allergies/Adverse Reactions: Allergies Allergy/AdvReac Type Severity Reaction Status Date / Time No Known Allergies Allergy Verified 01/28/18 05:32 - Medications Medications: Current Medications Albuterol (Ventolin Hfa 90 Mcg/Actuation (8 G)) 2 puff INH QID PRN PRN Reason: wheezing Last Admin: 01/29/18 14:35 Dose: 2 puff Alprazolam (Xanax) 1 mg PO BID PRN PRN Reason: Anxiety Last Admin: 01/31/18 11:12 Dose: 1 mg Amlodipine Besylate (Norvasc) 10 mg PO DAILY [facility] Last Admin: 01/31/18 10:08 Dose: 10 mg Codeine Sulfate (Codeine) 30 mg PO Q8 [facility] Last Admin: 01/31/18 10:07 Dose: 30 mg Enoxaparin Sodium (Lovenox) 40 mg SC DAILY [facility] PRN Reason: Protocol Last Admin: 01/31/18 10:08 Dose: 40 mg Loperamide HCl (Imodium) 2 mg PO BID PRN PRN Reason: Diarrhea Morphine Sulfate (Morphine) 0.5 mg IVP Q6 PRN PRN Reason: severe pain 8-10 Last Admin: 01/31/18 11:10 Dose: 0.5 mg Ondansetron HCl (Zofran Inj) 4 mg IVP Q6 PRN PRN Reason: Nausea/Vomiting Last Admin: 01/31/18 10:13 Dose: 4 mg Oxycodone HCl (Oxycontin Extended Release Tab) 20 mg PO Q12H PRN PRN Reason: Pain, severe (8-10) Last Admin: 01/31/18 12:32 Dose: 20 mg Theophylline (Uniphyl) 400 mg PO DAILY [facility] Last Admin: 01/31/18 10:09 Dose: 400 mg Zolpidem Tartrate (Ambien) 10 mg PO HS [facility] Last Admin: 01/30/18 23:15 Dose: 10 mg Physical Exam - Neurological Exam Neurological exam: Alert, CN II-XII Intact, Normal Gait, Oriented x3 Additional comments: Reflexes were brisk on the right C5/6 and L3/4. Otherwise non-focal exam. Results - Vital Signs Recent Vital Signs: Last Vital Signs Temp 98.4 F 01/31/18 12:32 Pulse 73 01/31/18 12:32 Resp 18 01/31/18 12:32 BP 122/82 01/31/18 12:32 Pulse Ox 96 01/31/18 12:32 - Labs Result Diagrams: 01/31/18 06:20 01/31/18 06:20 Labs: Laboratory Results - last 24 hr 01/31/18 01/31/18 06:20 06:20 WBC 8.8 RBC 4.13 Hgb 14.2 Hct 42.5 MCV 102.9 H MCH 34.5 H MCHC 33.5 RDW 13.2 Plt Count 180 Sodium 139 Potassium 3.7 Chloride 102 Carbon Dioxide 28 Anion Gap 13 BUN 16 Creatinine 0.7 Est GFR ( Amer) > 60 Est GFR (Non-Af Amer) > 60 Random Glucose 87 Calcium 9.6 Total Bilirubin 0.8 AST 29 ALT 31 Alkaline Phosphatase 59 Total Protein 6.9 Albumin 3.9 Globulin 3.0 Albumin/Globulin Ratio 1.3 Assessment & Plan (1) Acute exacerbation of chronic low back pain Assessment and Plan: The patient should be referred to pain management for further evaluation of her medication regimen. There is not a significant amount of neurological dysfunction. Exam and imaging are benign. If there is still concern, then outpatient EMG/NCS is recommended in 2 weeks. Thank you. Status: Acute Priority: Medium
--- NOTE | 2018-01-31 18:29 | MRI ---
PROCEDURE: MR LUMBAR SPINE WITHOUT CONTRAST HISTORY: low back pain, XR neg COMPARISON: None available. TECHNIQUE: Multiecho multiplanar sequences were performed through the lumbar spine without the use of intravenous contrast. FINDINGS: There is a minimal grade 1 spondylolisthesis at L4-5 with L4 minimally anterior to L5 due to spondylolysis at L4 bilaterally. Vertebral body heights are preserved. Marrow signal unremarkable. Conus medullaris unremarkable at the level of L1 Paraspinal soft tissues are unremarkable. Instill note is made of a mild anterior wedge compression fracture of the T11 vertebral body with edema just inferior to the upper endplate. T12-L1: No disc herniation, spinal canal stenosis or neural foraminal narrowing. L1-2: No disc herniation, spinal canal stenosis or neural foraminal narrowing. L2-3: No disc herniation, spinal canal stenosis or neural foraminal narrowing. L3-4: No disc herniation, spinal canal stenosis or neural foraminal narrowing. L4-5: There is a severe central canal stenosis at L 4 5 due to limited grade 1 spondylolisthesis, limited generalized disc bulging and gross facet joint degenerative arthropathy. There is only borderline bilateral neural foraminal stenosis. No disc herniation. L5-S1: No disc herniation, spinal canal stenosis or neural foraminal narrowing. OTHER FINDINGS: None. IMPRESSION: Severe L4-5 central canal stenosis due to grade 1 spondylolisthesis, limited generalized disc bulging and gross facet joint degenerative change. No disc herniation throughout the exam. Acute subacute compression fracture T11 incidentally noted, mild.
[2018-02-01] MEDS: oxyCODONE 20 mg ER Tab (oxyCONTIN) PO PRN (00:33)
[2018-02-01 05:42] LABS: HEMOGLOBIN 14.6 g/dL (12.0-16.0); MEAN CELL VOLUME 102.9 fl (81.0-99.0); MEAN CORPUSCULAR HEMOGLOBIN 35.2 pg (27.0-31.0); MEAN CORPUSCULAR HGB CONC 34.2 g/dL (33.0-37.0); RBC 4.14 Mil/uL (3.80-5.20); RED CELL DISTRIBUTION WIDTH 13.4 % (11.5-14.5); WHITE BLOOD COUNT 7.4 K/uL (4.8-10.8)
[2018-02-01 06:19] LABS: ALB/GLOB RATIO 1.3 (1.0-2.1); ALBUMIN 3.9 g/dL (3.5-5.0); ALT/SGPT 33 U/L (9-52); AST/SGOT 22 U/L (14-36); BLOOD UREA NITROGEN 17 mg/dl (7-17); CALCIUM 9.8 mg/dL (8.4-10.2); GFR AFRICAN-AMERICAN > 60; GFR NON-AFRICAN AMERICAN > 60
--- NOTE | 2018-02-01 07:27 | CON ---
DATE: 01/30/2018 HISTORY OF PRESENT ILLNESS: This is a 57-year-old woman who apparently had been having several months of what she described as back pain. Upon further questioning, she has tremendously diffuse pain, she describes it on both flanks, thoracic area going down to lumbar area, some rib pain, it is everyday. Apparently, she has been treated by a apprentice painter brush and is on enormous doses of narcotic. She is walking around her room without much difficulty. Apparently, the question was raised about a retained intraspinal catheter that was seen in her MRI. Rest of her medical history, medications, allergies, social history reviewed in the chart. PHYSICAL EXAMINATION: GENERAL: She really does not have any tenderness to palpation all along the spine. She has 5/5 strength throughout. Sensation is grossly intact. Her gait is normal. Straight leg raising is negative bilaterally. LABORATORY DATA: The MRI of the L-spine is a rather unimpressive study. There is some mild stenosis at 4-5, very subtle. Minimal spondylolisthesis. The retained catheter is seen. IMPRESSION AND PLAN: The patient with diffuse chronic pain, on high dose narcotic, without much doubt in her lumbar MRI to corroborate as far as the catheter goes, as this has likely been in for 27 years since her last childbirth, had an epidural. I would certainly not advise treated for no reason. Suggestion would be possibly obtain a study of her thoracic spine although I feel this likely to be negative as well, otherwise, would recommend continue followup with me in management. Shaun Corona MD
--- NOTE | 2018-02-01 08:18 | CP.PCM.PN ---
Subjective - Date & Time of Evaluation Date of Evaluation: 02/01/18 Time of Evaluation: 08:00 - Subjective Subjective: I was away last week, patient was seen by the anesthesiologist chief contract officer. I had consulted on the patient once before but she was following Dr. Pineda for pain management. She states that she was recently discharged by Dr. Pineda and doesn' t know how she's going to continue pain management. She claims that she has a catheter in her spine from a procedure by anesthesiologist years ago for c section. Lumbar MRI on this admission didn't state as much, does have mild T11 compression fracture and L4-5 central stenosis. Her main issue is mainly with opioid dependence, she faces withdrawal as she was discharged by her current pain specialist. Different options were offered to her, but she doesn't appear to be interested. Objective - Vital Signs/Intake and Output Vital Signs (last 24 hours): Temp Pulse Resp BP Pulse Ox 98.1 F 62 18 113/75 95 02/01/18 05:02 02/01/18 05:02 02/01/18 05:02 02/01/18 05:02 02/01/18 05:02 - Medications Medications: Current Medications Albuterol (Ventolin Hfa 90 Mcg/Actuation (8 G)) 2 puff INH QID PRN PRN Reason: wheezing Last Admin: 01/29/18 14:35 Dose: 2 puff Alprazolam (Xanax) 1 mg PO BID PRN PRN Reason: Anxiety Last Admin: 01/31/18 20:03 Dose: 1 mg Amlodipine Besylate (Norvasc) 10 mg PO DAILY [facility] Last Admin: 01/31/18 10:08 Dose: 10 mg Codeine Sulfate (Codeine) 30 mg PO Q8 [facility] Last Admin: 02/01/18 01:51 Dose: Not Given Enoxaparin Sodium (Lovenox) 40 mg SC DAILY [facility] PRN Reason: Protocol Last Admin: 01/31/18 10:08 Dose: 40 mg Loperamide HCl (Imodium) 2 mg PO BID PRN PRN Reason: Diarrhea Last Admin: 02/01/18 04:20 Dose: 2 mg Morphine Sulfate (Morphine) 0.5 mg IVP Q6 PRN PRN Reason: severe pain 8-10 Last Admin: 02/01/18 04:17 Dose: 0.5 mg Ondansetron HCl (Zofran Inj) 4 mg IVP Q6 PRN PRN Reason: Nausea/Vomiting Last Admin: 02/01/18 04:17 Dose: 4 mg Oxycodone HCl (Oxycontin Extended Release Tab) 20 mg PO Q12H PRN PRN Reason: Pain, severe (8-10) Last Admin: 02/01/18 00:33 Dose: 20 mg Theophylline (Uniphyl) 400 mg PO DAILY [facility] Last Admin: 01/31/18 10:09 Dose: 400 mg - Labs Labs: 02/01/18 04:20 02/01/18 04:20 - Respiratory Exam Respiratory Exam: NORMAL BREATHING PATTERN - Cardiovascular Exam Cardiovascular Exam: REGULAR RHYTHM - Back Exam Additional comments: TTP over lower lumbar spine. Assessment and Plan (1) Chronic lower back pain Assessment & Plan: 57 yo woman w/ chronic pain, facing pending opioid withdrawal due to being discharged by current pain specialist, also likely alcohol abuse. - options for patient include referral to Dr. Barboza for addiction medicine, [facility] for in-patient rehab - please give patient a copy of her lumbar MRI so she may seek consultation with new pain specialist on her own - d/c Oxycontin and Codeine, patient should be started on Percocet 10mg q6h PRN and Clonidine for withadrawal symptoms - I do not accept new patients at the moment, patient will need to find a new pain specialist on her own Status: Chronic
[2018-02-01] MEDS ORDERED: oxyCODONE 10 mg Immediate Release Tab PO PRN (08:27)
--- NOTE | 2018-02-01 08:58 | CP.PCM.PN ---
Subjective - Date & Time of Evaluation Date of Evaluation: 02/01/18 Time of Evaluation: 08:56 - Subjective Subjective: Patient states she is still in pain. No new complaints. Denies numbness/ tingling. Review of Systems - Review of Systems All systems: reviewed and no additional remarkable complaints except - Cardiovascular Cardiovascular: UNREMARKABLE - Respiratory Respiratory: UNREMARKABLE - Gastrointestinal Gastrointestinal: UNREMARKABLE - Musculoskeletal Musculoskeletal: As Par HPI - Integumentary Integumentary: UNREMARKABLE - Neurological Neurological: As Per HPI - Hematologic/Lymphatic Hematologic: UNREMARKABLE Objective - Vital Signs/Intake and Output Vital Signs (last 24 hours): Temp Pulse Resp BP Pulse Ox 97.7 F 67 20 121/74 96 02/01/18 08:25 02/01/18 08:25 02/01/18 08:25 02/01/18 08:25 02/01/18 08:25 - Medications Medications: Current Medications Albuterol (Ventolin Hfa 90 Mcg/Actuation (8 G)) 2 puff INH QID PRN PRN Reason: wheezing Last Admin: 01/29/18 14:35 Dose: 2 puff Alprazolam (Xanax) 1 mg PO BID PRN PRN Reason: Anxiety Last Admin: 01/31/18 20:03 Dose: 1 mg Amlodipine Besylate (Norvasc) 10 mg PO DAILY [facility] Last Admin: 01/31/18 10:08 Dose: 10 mg Clonidine HCl (Catapres) 0.2 mg PO Q8H PRN PRN Reason: Restlessness Enoxaparin Sodium (Lovenox) 40 mg SC DAILY [facility] PRN Reason: Protocol Last Admin: 01/31/18 10:08 Dose: 40 mg Loperamide HCl (Imodium) 2 mg PO BID PRN PRN Reason: Diarrhea Last Admin: 02/01/18 04:20 Dose: 2 mg Ondansetron HCl (Zofran Inj) 4 mg IVP Q6 PRN PRN Reason: Nausea/Vomiting Last Admin: 02/01/18 04:17 Dose: 4 mg Oxycodone HCl (Oxycodone Immediate Release Tab) 10 mg PO Q6 PRN PRN Reason: Pain, severe (8-10) Theophylline (Uniphyl) 400 mg PO DAILY [facility] Last Admin: 01/31/18 10:09 Dose: 400 mg - Labs Labs: 02/01/18 04:20 02/01/18 04:20 - Constitutional Appears: Well, No Acute Distress - Head Exam Head Exam: ATRAUMATIC - Neck Exam Neck Exam: Full ROM - Respiratory Exam Respiratory Exam: NORMAL BREATHING PATTERN - Cardiovascular Exam Additional comments: +DP/PT pulses - Extremities Exam Additional comments: calves soft NT neg h omans +ROM ankle/toes, sesnation intact - Back Exam Back Exam: paraspinal tenderness, tenderness - Neurological Exam Neurological Exam: Alert, Awake, Oriented x3 Neuro motor strength exam: Left Lower Extremity: 5, Right Lower Extremity: 5 - Psychiatric Exam Psychiatric exam: Normal Affect, Normal Mood - Skin Skin Exam: Dry, Intact, Normal Color, Warm Assessment and Plan (1) Chronic lower back pain Assessment & Plan: Dr. Corona consult appreciated, pain mgmt consultation appreciated no orthopedic issues at this time d/w Dr. Champion, agrees with above Status: Chronic (2) Lumbar canal stenosis Status: Chronic (3) Spondylolisthesis, lumbar region Status: Chronic (4) Lumbar spondylosis Status: Chronic (5) Wedge compression fracture of T11 vertebra Status: Acute Radiology Interpretation - Radiology Interpretation #2 Interpretation: Patient Name / ID : QAMAR CLARK / [id number] Exam Date : 01/29/2018 18:50:13 ( Approved ) Study Comment : Sex / Age : F / 57Y Creator : Lowell Sewell MD Dictator : Lowell Sewell MD Grooming Salon Manager : Archives Director : Lowell Sewell MD Approver2 : Report Date : 01/31/2018 18:22:49 My Comment : PROCEDURE: MR LUMBAR SPINE WITHOUT CONTRAST HISTORY: low back pain, XR neg COMPARISON: None available. TECHNIQUE: Multiecho multiplanar sequences were performed through the lumbar spine without the use of intravenous contrast. FINDINGS: There is a minimal grade 1 spondylolisthesis at L4-5 with L4 minimally anterior to L5 due to spondylolysis at L4 bilaterally. Vertebral body heights are preserved. Marrow signal unremarkable. Conus medullaris unremarkable at the level of L1 Paraspinal soft tissues are unremarkable. Instill note is made of a mild anterior wedge compression fracture of the T11 vertebral body with edema just inferior to the upper endplate. T12-L1: No disc herniation, spinal canal stenosis or neural foraminal narrowing. L1-2: No disc herniation, spinal canal stenosis or neural foraminal narrowing. L2-3: No disc herniation, spinal canal stenosis or neural foraminal narrowing. L3-4: No disc herniation, spinal canal stenosis or neural foraminal narrowing. L4-5: There is a severe central canal stenosis at L 4 5 due to limited grade 1 spondylolisthesis, limited generalized disc bulging and gross facet joint degenerative arthropathy. There is only borderline bilateral neural foraminal stenosis. No disc herniation. L5-S1: No disc herniation, spinal canal stenosis or neural foraminal narrowing. OTHER FINDINGS: None. IMPRESSION: Severe L4-5 central canal stenosis due to grade 1 spondylolisthesis, limited generalized disc bulging and gross facet joint degenerative change. No disc herniation throughout the exam. Acute subacute compression fracture T11 incidentally noted, mild.
[2018-02-01] MEDS: THEOPHYLLINE 400 MG T24(UNIPHYL) PO SCH (09:25)
[2018-02-01] MEDS: Enoxaparin 40 mg Syringe SC SCH (09:26)
--- NOTE | 2018-02-01 12:21 | CP.PCM.PCO ---
Assessment/Plan - Assessment and Plan (Free Text) Assessment: Patient seen and examined this morning. Patient complaining of pain, medicated with pain meds as per pain management recommendations. Neurosurgery and Neurology have cleared patient for dc. Symptoms most likely due to opioid withdrawal. Patient offered inpatient rehabilitation for opioid dependence and has refused. Patient says she will follow up with Pain Medicine outpatient. Will rx 3day pain meds till her appt with pain doctor and clonidine for withdrawal symptoms. Discussed with Dr Patterson who agrees with plan.
--- NOTE | 2018-02-01 13:06 | PN ---
DATE: 02/01/2018 SUBJECTIVE: The patient seen and examined. Interim events noted. Consults noted and appreciated. Neurology and neurosurgery interventions noted and appreciated. The patient remains in progressive care unit with telemetry monitoring, still complains of back pain and required additional morphine dose last night. No chest pain or shortness of breath. PHYSICAL EXAMINATION: GENERAL: The patient is in no acute distress. VITAL SIGNS: Stable. HEART: S1, S2, normal and regular. LUNGS: Good bilateral air exchange. ABDOMEN: Soft, nontender. EXTREMITIES: No edema, no calf swelling. No tenderness. No acute ischemia. [employer]ING SET UP TECHNICIAN: Exam is essentially unchanged. DIAGNOSTIC DATA: Available diagnostic data reviewed. Telemetry monitoring does not show significant arrhythmias. ASSESSMENT AND PLAN: Overall, the patient's general medical condition is stable. Plan as ordered. Deny Patterson MD
[2018-02-01 13:47] VITALS: BP 118/70; PULSE 70; RESP 18; TEMP 98; O2SAT 97
== END 2018-02-01 13:58 | disposition home or self-care (01) | DRG 744 ==
LOC: H.ER 22:14 → INTOOBSV 01-28 00:48 → UNDOADMOB 01-28 00:48 → OBSVTOIN 01-28 00:48 → H.ERHOLD 01-28 00:48 → H.TEL 01-28 02:39 → H.ERHOLD 01-28 02:39 → H.TEL 01-28 15:49 → OBSVTOIN 01-30 02:39
PROVIDERS: ADMIT Internal Medicine; ATTEND Internal Medicine
DX: F11.23 Opioid dependence with withdrawal (principal); J44.9 Chronic obstructive pulmonary disease, unspecified; M48.061 Spinal stenosis, lumbar region without neurogenic claudication; K58.9 Irritable bowel syndrome, unspecified; G89.29 Other chronic pain; F43.23 Adjustment disorder with mixed anxiety and depressed mood; I10 Essential (primary) hypertension; K59.00 Constipation, unspecified; M43.16 Spondylolisthesis, lumbar region; F17.210 Nicotine dependence, cigarettes, uncomplicated

== ENCOUNTER 2018-03-08 01:44 | Emergency (ER) | payer MEDICAID ==
[2018-03-08 01:44] VITALS: BMI 21.6
[2018-03-08 01:58] VITALS: BP 134/91; PULSE 90; RESP 16; TEMP 98.3; O2SAT 97
[2018-03-08] MEDS ORDERED: Morphine 4 MG/ML VIAL IVP STA (02:28)
--- NOTE | 2018-03-08 02:48 | ED PDOC ---
HPI: Back Time Seen by Provider: 03/08/18 02:02 Chief Complaint (Nursing): Back Pain Chief Complaint (Provider): Back Pain History Per: Patient History/Exam Limitations: no limitations Onset/Duration Of Symptoms: Days Current Symptoms Are (Timing): Still Present Additional Complaint(s): 57 y/o female with a PMHx of chronic back pain, opiod use disorder and asthma presents to the ED complaining of back pain. Patient states she has not taken opiods in two weeks. Patient reports back pain is from top to the bottom of the back. Patient also reports of feeling paresthesias in extremities. Denies injuries, falls, weakness, change in bowel or bladder habits. PMD: Dom Nava Past Medical History Reviewed: Historical Data, Nursing Documentation, Vital Signs Vital Signs: Last Vital Signs Temp 98.3 F 03/08/18 01:55 Pulse 90 03/08/18 01:55 Resp 16 03/08/18 01:55 BP 134/91 H 03/08/18 01:55 Pulse Ox 97 03/08/18 01:55 - Medical History PMH: Anxiety, Asthma, COPD, HTN, Chronic Pain (back pain) Denies: HIV, Chronic Kidney Disease - Surgical History Surgical History: - Family History Family History: States: Unknown Family Hx, CAD - Immunization History Hx Tetanus Toxoid Vaccination: No Hx Influenza Vaccination: No Hx Pneumococcal Vaccination: No - Home Medications Home Medications: Ambulatory Orders Medication Instructions Recorded Alprazolam [Xanax] 1 mg PO TID PRN 07/09/14 Albuterol HFA [Ventolin HFA 90 2 puff INH QID PRN 12/04/16 mcg/actuation (8 g)] amLODIPine [Norvasc] 10 mg PO DAILY 01/07/18 cloNIDine [Catapres] 0.2 mg PO Q8H PRN #20 tab 02/01/18 oxyCODONE [oxyCODONE Immediate 10 mg PO Q6 PRN #12 tab 02/01/18 Release Tab] - Allergies Allergies/Adverse Reactions: Allergies Allergy/AdvReac Type Severity Reaction Status Date / Time No Known Allergies Allergy Verified 01/28/18 05:32 Review of Systems ROS Statement: Except As Marked, All Systems Reviewed And Found Negative Musculoskeletal: Positive for: Back Pain Physical Exam - Reviewed Nursing Documentation Reviewed: Yes Vital Signs Reviewed: Yes - Physical Exam Appears: Positive for: No Acute Distress Head Exam: Positive for: ATRAUMATIC, NORMOCEPHALIC Skin: Positive for: Normal Color, Warm, Dry Eye Exam: Positive for: Normal appearance, EOMI, PERRL Neck: Positive for: Normal, Painless ROM, Supple Cardiovascular/Chest: Positive for: Regular Rate, Rhythm. Negative for: Murmur Respiratory: Positive for: Normal Breath Sounds. Negative for: Respiratory Distress Gastrointestinal/Abdominal: Positive for: Normal Exam, Soft. Negative for: Tenderness Back: Positive for: Normal Inspection, Other (Diffusely tender to minimal palpation. ) Extremity: Positive for: Normal ROM. Negative for: Pedal Edema, Deformity Neurologic/Psych: Positive for: Alert, clinical allergist II-XII, Oriented. Negative for: Motor/Sensory Deficits - Laboratory Results Result Diagrams: 03/08/18 02:45 03/08/18 02:45 - ECG O2 Sat by Pulse Oximetry: 97 (RA) Pulse Ox Interpretation: Normal Medical Decision Making Medical Decision Making: Time: 0239 A/P: Patient with a PMHx of Chronic back pain, opiod use disorder and asthma presents with back pain. -- Recent chart review reveals patient has had issues with opiod abuse. Patient was also discharged by Dr. White -- Patient exhiviting signs of opiod seeking behavior. -- Will provide ONE dose of opiods and re-evaluate. -- BMP -- Urine Drug Screen -- CBC -- CXR Portable -- Morphine 4 mg IVP -- Toradol 30 mg IVP -- Urinalysis 4AM Workup is negative Patient to be discharged to followup as outpatient Scribe Attestation: Documented by Tim Byrne acting as a scribe for Dr. Santiago Carver MD. Provider Scribe Attestation: All medical record entries made by the Scribe were at my direction and personally dictated by me. I have reviewed the chart and agree that the record accurately reflects my personal performance of the history, physical exam, medical decision making, and the department course for this patient. I have also personally directed, reviewed, and agree with the discharge instructions and disposition. Disposition - Clinical Impression Clinical Impression: Chronic back pain - Patient ED Disposition Is Patient to be Admitted: No - Disposition Referrals: Kiran rKishnan MD [Primary Care Provider] - Disposition: Routine/Home Disposition Time: 04:11 Condition: STABLE Instructions: Chronic Pain (DC) Forms: [place] [place] ([place])
[2018-03-08] MEDS ORDERED: Alum-Mag Hydrox-Simethicone Susp (30 mL) PO ONE (03:25)
[2018-03-08] MEDS ORDERED: Alum-Mag Hydrox-Simethicone Susp (30 mL) ONE (03:30)
[2018-03-08 03:35] LABS: HEMOGLOBIN 16.2 g/dL (12.0-16.0); MEAN CELL VOLUME 98.9 fl (81.0-99.0); MEAN CORPUSCULAR HEMOGLOBIN 35.2 pg (27.0-31.0); MEAN CORPUSCULAR HGB CONC 35.6 g/dL (33.0-37.0); RBC 4.61 Mil/uL (3.80-5.20); RED CELL DISTRIBUTION WIDTH 13.5 % (11.5-14.5); WHITE BLOOD COUNT 11.5 K/uL (4.8-10.8)
[2018-03-08 03:38] LABS: BLOOD UREA NITROGEN 8 mg/dl (7-17); CALCIUM 9.9 mg/dL (8.4-10.2); GFR AFRICAN-AMERICAN > 60; GFR NON-AFRICAN AMERICAN > 60
--- NOTE | 2018-03-08 08:30 | RAD ---
Date of service: 03/08/2018 HISTORY: pain COMPARISON: Frontal chest radiograph 01/07/2018. FINDINGS: LUNGS: No active pulmonary disease. PLEURA: No significant pleural effusion identified, no pneumothorax apparent. CARDIOVASCULAR: Normal. OSSEOUS STRUCTURES: No significant abnormalities. VISUALIZED UPPER ABDOMEN: Normal. OTHER FINDINGS: None. IMPRESSION: No interval acute cardiopulmonary disease appreciated.
== END 2018-03-08 06:18 | disposition home or self-care (01) ==
LOC: H.ER 01:44
DX: M54.9 Dorsalgia, unspecified (principal); G89.29 Other chronic pain; I10 Essential (primary) hypertension; Z82.49 Family history of ischemic heart disease and other diseases of the circulatory system; J44.9 Chronic obstructive pulmonary disease, unspecified
CPT/HCPCS: 71045; 80048; 85027; 96374; 96375; 99283; J1885; J2270

== ENCOUNTER 2018-03-21 02:43 | Emergency (ER) | payer MEDICAID ==
[2018-03-21 02:43] VITALS: BMI 21.6
[2018-03-21 02:50] VITALS: RESP 18; O2SAT 94
[2018-03-21 03:24] LABS: BASO # 0.1 K/uL (0.0-0.2); BASO % 1.1 % (0.0-2.0); EOS # 0.2 K/uL (0.0-0.7); EOS % 2.6 % (0.0-4.0); HEMOGLOBIN 15.3 g/dL (12.0-16.0); LYMPH # 2.2 K/uL (1.0-4.3); LYMPH % 26.5 % (20.0-40.0); MEAN CELL VOLUME 101.8 fl (81.0-99.0); MEAN CORPUSCULAR HEMOGLOBIN 35.1 pg (27.0-31.0); MEAN CORPUSCULAR HGB CONC 34.5 g/dL (33.0-37.0); MEAN PLATELET VOLUME 7.4 fl (7.2-11.7); MONO # 0.9 K/uL (0.0-0.8); MONO % 10.9 % (0.0-10.0); NEUT # 4.8 K/uL (1.8-7.0); NEUT % 58.9 % (50.0-75.0); NRBC % 0.1 % (0.0-0.0); RBC 4.34 Mil/uL (3.80-5.20); RED CELL DISTRIBUTION WIDTH 14.6 % (11.5-14.5); WHITE BLOOD COUNT 8.1 K/uL (4.8-10.8)
[2018-03-21 03:44] LABS: B-TYPE NATRIURETIC PEPTIDE 121 pg/ml (0-900)
[2018-03-21 04:04] LABS: PARTIAL THROMBOPLASTIN TIME 29.3 Seconds (25.6-37.1)
[2018-03-21 04:07] LABS: ALB/GLOB RATIO 1.4 (1.0-2.1); ALBUMIN 4.6 g/dL (3.5-5.0); ALT/SGPT 48 U/L (9-52); AST/SGOT 93 U/L (14-36); BLOOD UREA NITROGEN 8 mg/dl (7-17); GFR AFRICAN-AMERICAN > 60; GFR NON-AFRICAN AMERICAN > 60
[2018-03-21 04:09] LABS: INR 0.9; PROTHROMBIN TIME 9.7 Seconds (9.8-13.1)
--- NOTE | 2018-03-21 05:18 | ED PDOC ---
HPI: Psych/Substance Abuse Chief Complaint (Provider): SI History Per: Patient History/Exam Limitations: no limitations Additional Complaint(s): 57 yo female with history of opiate abuse, HTN and COPD presents with EMS after telling her son she wanted to kill herself. Pt was on the phone with son who lives with [place]. PT states police came into her house. Pt reports bilateral LE edema. <Carola Early - Last Filed: 03/21/18 05:26> <Vera Daigle - Last Filed: 03/21/18 06:57> Time Seen by Provider: 03/21/18 02:50 Chief Complaint (Nursing): Psychiatric Evaluation Past Medical History Reviewed: Historical Data, Nursing Documentation, Vital Signs Vital Signs: Last Vital Signs Temp 99.4 F 03/21/18 02:46 Pulse 111 H 03/21/18 02:46 Resp 18 03/21/18 02:46 BP 149/82 03/21/18 02:46 Pulse Ox 94 L 03/21/18 02:46 - Medical History PMH: Anxiety, Asthma, COPD, HTN, Chronic Pain (back pain) Denies: HIV, Chronic Kidney Disease - Surgical History Surgical History: - Family History Family History: States: Unknown Family Hx, CAD - Living Arrangements Living Arrangements: With Family - Social History Current smoker - smoking cessation education provided: Yes - Immunization History Hx Tetanus Toxoid Vaccination: No Hx Influenza Vaccination: No Hx Pneumococcal Vaccination: No <Carola Early - Last Filed: 03/21/18 05:26> Vital Signs: Last Vital Signs Temp 99.4 F 03/21/18 02:46 Pulse 111 H 03/21/18 02:46 Resp 18 03/21/18 02:46 BP 149/82 03/21/18 02:46 Pulse Ox 94 L 03/21/18 05:27 <Vera Daigle - Last Filed: 03/21/18 06:57> - Home Medications Home Medications: Ambulatory Orders Medication Instructions Recorded RX: Alprazolam [Xanax] 1 mg PO TID PRN 07/09/14 RX: Albuterol HFA [Ventolin HFA 90 2 puff INH QID PRN 12/04/16 mcg/actuation (8 g)] amLODIPine [Norvasc] 10 mg PO DAILY 01/07/18 RX: cloNIDine [Catapres] 0.2 mg PO Q8H PRN #20 tab 02/01/18 RX: oxyCODONE [oxyCODONE Immediate 10 mg PO Q6 PRN #12 tab 02/01/18 Release Tab] - Allergies Allergies/Adverse Reactions: Allergies Allergy/AdvReac Type Severity Reaction Status Date / Time No Known Allergies Allergy Verified 01/28/18 05:32 Review of Systems ROS Statement: Except As Marked, All Systems Reviewed And Found Negative Constitutional: Negative for: Fever, Chills Cardiovascular: Negative for: Chest Pain, Palpitations Respiratory: Negative for: Cough, Shortness of Breath Musculoskeletal: Positive for: Other (Bilateral leg edema ) <Carola Early - Last Filed: 03/21/18 05:26> Physical Exam - Reviewed Nursing Documentation Reviewed: Yes Vital Signs Reviewed: Yes - Physical Exam Appears: Positive for: Well, Non-toxic, No Acute Distress Head Exam: Positive for: ATRAUMATIC, NORMAL INSPECTION, NORMOCEPHALIC Skin: Positive for: Normal Color, Warm, DRY Eye Exam: Positive for: Normal appearance ENT: Positive for: Normal ENT Inspection Neck: Positive for: Normal, Painless ROM Cardiovascular/Chest: Positive for: Regular Rate, Rhythm Respiratory: Positive for: CNT, Normal Breath Sounds Gastrointestinal/Abdominal: Positive for: Normal Exam, Soft Back: Positive for: Normal Inspection Extremity: Positive for: Normal ROM, Swelling (b/l LE) Neurologic/Psych: Positive for: Alert, Oriented <Carola Early - Last Filed: 03/21/18 05:26> - Laboratory Results Result Diagrams: 03/21/18 03:19 03/21/18 03:19 - ECG O2 Sat by Pulse Oximetry: 94 <Carola Early - Last Filed: 03/21/18 05:26> - Laboratory Results Result Diagrams: 03/21/18 03:19 03/21/18 03:19 <Vera Daigle - Last Filed: 03/21/18 06:57> Medical Decision Making Medical Decision Making: Alcohol elevated - Crisis evaluation at 8am. elevated ddimer - Pt tacycardic with O2 94%. CT ordered. Pt endorsed pending chest CT, Us LE and crisis evaluation. <Carola Early - Last Filed: 03/21/18 05:26> Medical Decision Making: Time: 06:20 Patient care endorsed from Carola Early to Dr. Daigle pending imaging and crisis evaluation. Time: 07:00 Patient care endorsed to Dr. King pending CT scan, US duplex, and crisis evaluation. ----- Scribe Attestation: Documented by Issa Giraldo, acting as a scribe for Vera Daigle MD Provider Scribe Attestation: All medical record entries made by the Scribe were at my direction and personally dictated by me. I have reviewed the chart and agree that the record accurately reflects my personal performance of the history, physical exam, medical decision making, and the department course for this patient. I have also personally directed, reviewed, and agree with the discharge instructions and disposition. <Vera Daigle Y - Last Filed: 03/21/18 06:57> Disposition - Patient ED Disposition Is Patient to be Admitted: Transfer of Care - Disposition Disposition: Transfer of Care Disposition Time: 06:00 <Carola Early - Last Filed: 03/21/18 05:26> - Patient ED Disposition Is Patient to be Admitted: Transfer of Care - Disposition Disposition Time: 07:00 Patient Signed Over To: Francisco King (CT, US, crisis eval) <Vera Daigle - Last Filed: 03/21/18 06:57> - Clinical Impression Clinical Impression: Encounter for psychiatric assessment, Lower extremity edema - Disposition Condition: STABLE Forms: [employer] (Slovak)
[2018-03-21] MEDS ORDERED: Iodixanol 320 MG/ML 100 ML BOTTLE IV ONE (06:56)
[2018-03-21] MEDS ORDERED: Sodium Chloride 0.9% 50 ML IV ONE (06:56)
[2018-03-21] MEDS ORDERED: DiphenhydrAMINE 50 mg/ml Inj IVP STA (07:15)
[2018-03-21] MEDS ORDERED: Albuterol-Ipratrop 3 mg / 0.5 (3 ml) UD INH STA (07:21)
[2018-03-21] MEDS ORDERED: Albuterol-Ipratrop 3 mg / 0.5 (3 ml) UD IH STA (07:21)
--- NOTE | 2018-03-21 07:31 | ED PDOC ---
- Laboratory Results Result Diagrams: 03/21/18 03:19 03/21/18 03:19 Interpretation Of Abn Labs: opiates and alcohol - ECG O2 Sat by Pulse Oximetry: 94 (RA) - CT Scan/US cy Other Rad Studies (CT/US): Read By Radiologist Other Rad Interpretation: no pe; bronchitis us Other Rad Studies (CT/US): Read By Radiologist Other Rad Interpretation: no dvt - Progress ED Course And Treament: 1038: Pt. seen by crisis. Does not meet criteria for admit. Fu with pcp. No dyspnea, weakness, chest pain. AAOx3. Medical Decision Making Medical Decision Makin57 year old female SAS borderline signed out to provider at [address] Daigle pending CT chest, ultrasound and crisis evaluation. 0732 Patient states that she is asthmatic, will be given 2 duonebs as she states that she usually takes 2 duonebs in the morning. 0829 EXAM: CT Angiography Chest With Intravenous Contrast CLINICAL HISTORY: 57 years old, female; Signs and symptoms; Shortness of breath; Additional info: Tachy, elevated ddimer TECHNIQUE: Axial computed tomographic angiography images of the chest with intravenous contrast using pulmonary embolism protocol. All CT scans at this facility use at least one of these dose optimization techniques: automated exposure control; mA and/or kV adjustment per patient size (includes targeted exams where dose is matched to clinical indication); or iterative reconstruction. 1361 images are submitted. Axial reformatted images are submitted in soft tissue lung and bone windows. MIP reconstructed images were created and reviewed. Coronal and sagittal reformatted images were created and reviewed. CONTRAST: 90 mL of omnipaque administered intravenously. COMPARISON: [facility] - CHEST ONE VIEW 2015-11-29 16:16 FINDINGS: Artifacts: Limited due to motion and misregistration artifacts. Pulmonary arteries: No CT evidence of pulmonary embolus. Aorta: The aorta demonstrates calcified plaque and is mildly ectatic but normal in caliber. No thoracic aortic aneurysm. Lungs: Mild parabronchial cuffing, with basilar infiltration which can be seen with bronchitis, reactive airway disease or viral pneumonitis versus mild failure. No mass. Pleural space: Unremarkable. No significant effusion. No pneumothorax. Heart: Cardiomegaly. Left ventricular hypertrophy. Mediastinum: Small hiatal hernia. Bones/joints: There is radiopaque tubular density traversing the spine seen on image 105 through 157 series 3 incompletely visualized. Correlation with patient's clinical history is recommended. There is superior endplate compression fracture deformity of T11. T10-T11 vacuum disc. No dislocation. Soft tissues: Unremarkable. Lymph nodes: Bilateral hilar lymph nodes. Liver: Enlarged fatty liver. Gallbladder and bile ducts: Contracted gallbladder with gallbladder wall thickening and mild pericholecystic infiltration.If clinically warranted, a right upper quadrant ultrasound and correlation with LFTs may be helpful for further assessment. Spleen: Left upper quadrant splenule. Unremarkable spleen. Kidneys and ureters: There is distention of bilateral renal pelvis. Bilateral basal ganglia lacunes are present. Renal hypodensities Stomach and bowel: There are nonspecific fluid filled stomach, small bowel loops with gastric wall thickening likely due to under distention. These findings can represent ileus versus gastritis/gastroenteritis versus slow transit versus peristalsis. IMPRESSION: 1. There is radiopaque tubular density traversing the spine seen on image 105 through 157 series 3 incompletely visualized. Correlation with patient's clinical history of catheter is recommended. 2. No CT evidence of pulmonary embolus. 3. Mild parabronchial cuffing, with basilar infiltration which can be seen with bronchitis, reactive airway disease or viral pneumonitis versus mild failure Documented by Vandana Angela acting as a scribe for Francisco King MD. All medical record entries made by the Scribe were at my direction and personally dictated by me. I have reviewed the chart and agree that the record accurately reflects my personal performance of the history, physical exam, medical decision making, and the department course for this patient. I have also personally directed, reviewed, and agree with the discharge instructions and disposition. Disposition - Clinical Impression Clinical Impression: Depression, COPD (chronic obstructive pulmonary disease) - POA Present On Arrival: None - Disposition Referrals: [facility] [place] [Outside] - 03/23/18 Disposition: Routine/Home Disposition Time: 10:39 Condition: STABLE Additional Instructions: Return if not better in 3 days. Prescriptions: Albuterol Sulfate [Proair Hfa] 0.09 mg IH Q6H PRN #2 inh PRN Reason: Wheezing predniSONE [predniSONE Tab] 20 mg PO BID 5 Days tab Instructions: Depression, Chronic Obstructive Pulmonary Disease (COPD), Including Emphysema
[2018-03-21 09:52] LABS: BARBITURATES, UR NEGATIVE (NEGATIVE); BENZODIAZEPINES, UR POSITIVE (NEGATIVE); OPIATES, UR POSITIVE (NEGATIVE); PHENCYCLIDINE, UR NEGATIVE (NEGATIVE)
[2018-03-21 10:40] VITALS: BP 135/80; PULSE 110; TEMP 97.9
--- NOTE | 2018-03-21 10:55 | CT ---
Date of service: 03/21/2018 PROCEDURE: CT Chest with contrast (Pulmonary Angiogram) HISTORY: tachy, elevated ddimer COMPARISON: None available. TECHNIQUE: Axial computed tomography images were obtained of the chest in the pulmonary arterial phase of enhancement. Coronal and sagittal reformatted images were created and reviewed. Intravenous contrast dose: Radiation dose: Total exam DLP = mGy-cm. This CT exam was performed using one or more of the following dose reduction techniques: Automated exposure control, adjustment of the mA and/or kV according to patient size, and/or use of iterative reconstruction technique. FINDINGS: PULMONARY ARTERIES: Unremarkable. No pulmonary embolism. AORTA: No acute findings. No thoracic aortic aneurysm. LUNGS: Mild bibasilar fibrotic PLEURAL SPACES: Unremarkable. No effusion or pneumothorax. HEART: Unremarkable. No cardiomegaly. No significant pericardial effusion. LYMPH NODES: No lymphadenopathy. BONES, CHEST WALL: Unremarkable. No fracture or destructive lesion OTHER FINDINGS: Fatty liver. IMPRESSION: No pulmonary embolus
--- NOTE | 2018-03-22 11:31 | US ---
Date of service: 03/21/2018 PROCEDURE: Bilateral lower extremity venous duplex Doppler. HISTORY: r/o dvt COMPARISON: None available. TECHNIQUE: Bilateral common femoral, superficial femoral, popliteal and posterior tibial veins were evaluated. Flow was assessed with color Doppler, compressibility, assessment of phasic flow and augmentation response. FINDINGS: COMMON FEMORAL VEIN: Right CFV: Unremarkable. Left CFV: Unremarkable. SUPERFICIAL FEMORAL VEIN: Right SFV: Unremarkable. Left SFV: Unremarkable. POPLITEAL VEIN: Right Popliteal: Unremarkable. Left Popliteal: Unremarkable. POSTERIOR TIBIAL VEIN: Right PTV: Unremarkable. Left PTV: Unremarkable. OTHER FINDINGS: None. IMPRESSION: No evidence of deep venous thrombosis.
== END 2018-03-21 11:28 | disposition home or self-care (01) ==
LOC: H.ER 02:43
DX: F32.9 Major depressive disorder, single episode, unspecified (principal); J44.9 Chronic obstructive pulmonary disease, unspecified; F11.10 Opioid abuse, uncomplicated; F17.200 Nicotine dependence, unspecified, uncomplicated; F41.9 Anxiety disorder, unspecified; G89.29 Other chronic pain; I10 Essential (primary) hypertension
CPT/HCPCS: 71275; 80053; 80320; 80324; 80345; 80346; 80349; 80353; 80358; 80361; 83880; 83992; 84484; 85025; 85378; 85610; 85730; 93970; 94640; 96372; 96374; 96375; 99285; J1200; J2060; J2930; Q9967